=== PATIENT | female | born 1965 | race Caucasian/White ===

== ENCOUNTER 2016-04-01 20:49 | Inpatient (IN) | payer OTHER ==
[~2016-04-01] VITALS: Ht 157.5 cm; Wt 45.4 kg
[~2016-04-01 20:49] MED LIST: AMOXIL500 MG PO; ATROVENT 0.02%2.5 ML INH; ATROVENT 0.02%2.5 ML NEB; AUGMENTIN 875875 MG PO; CYCLOBENZAPRINE5 MG PO; CYMBALTA 20 MG20 MG PO; DILAUDID2 M1 PO; DULOXETINE HCL20 MG PO; HYDROXYZINE HCL25 M2 PO; HYDROXYZINE HCL25 MG PO; MASON NATURAL2000 IU PO; MIRTAZAPINE45 M1 PO; MIRTAZAPINE45 MG PO; MOBIC 15MG15 MG PO; NICODERM C21 MG/24 H TOP; NICOTINE T21 MG/24 H TOP; OXYCODONE5 MG PO; PERCOCET 325 MG1 TA2 PO; PERCOCET 5-3251 EACH PO; PREDNICOT10 MG PO; PREDNISONE 10MG10 MG PO; SPIRIVA 18 MCG18 MCG INH; SPIRIVA18 MCG INH; SYMBICORT 160/41 PUF INH; SYMBICORT 16010.2 GM INH; SYMBICORT 80/4.1 PUF INH; TOPAMAX 100MG100 M1 PO; TOPIRAMATE200 M2 PO; TRAMADOL50 MG PO; TRAZODONE HCL100 M1 PO; TRAZODONE100 MG PO; VENTOLIN H0.09 MG/Ac INH; VENTOLIN HFA18 GM INH; VICODIN5-300 PO; VITAMIN B-121000 MC3 PO; ZITHROMAX Z-PA250 M1 PO
--- NOTE | 2016-04-01 21:02 | ED DYSPNEA/ASTHMA COMPLAINT ---
History of Present Illness General Chief Complaint: Dyspnea (COPD, CHF, Other) Stated Complaint: DIFFICULTY BREATHING Source: patient, family, old records Exam Limitations: no limitations Vital Signs & Intake/Output Vital Signs & Intake/Output Vital Signs Date Time Temp Pulse Resp B/P Pulse O2 O2 Flow FiO2 Ox Delivery Rate 04/014 97.9 103 39 163/85 90 BIPAP 40% 04/010 24 96 BIPAP 35% 04/011 97.7 88 24 141/79 94 Venti Mask 50% 04/01 2100 100 Non 100% ReBreather 04/01 2054 97.7 93 22 158/86 100 Non ReBreather Allergies Coded Allergies: NO KNOWN ALLERGIES (10/11/14) Reconcile Medications Albuterol Sulfate (Ventolin Hfa) 18 GM HFA.AER.AD 2 PUF INH Q4H PRN COPD ( Reported) Budesonide/Formoterol Fumarate (Symbicort 160-4.5 Mcg Inhaler) 10.2 GM HFA.AER.AD 2 PUF INH BID COPD (Reported) Mirtazapine 45 MG TABLET 1 TAB PO QHS MENTAL HEALTH (Reported) Oxycodone HCl (Oxycontin) 15 MG TAB.ER.12H 1 TAB PO PRN CHRONIC PAIN ( Reported) Oxycodone HCl/Acetaminophen (Percocet 5-325 MG Tablet) 1 EACH TABLET 1 TAB PO Q6HR PRN PAIN Tiotropium [place] (Spiriva) 18 MCG CAP.W.DEV 1 CAP INH DAILY COPD (Reported) Trazodone HCl 100 MG TABLET 1 TAB PO QHS SLEEP (Reported) Triage Note: PT BIBA FROM HOME C/O SOB/AMS. PER MEDIC PT WAS AT HOME SINCE THIS MORNING? PT HAS HAD AMS, PT HAS HX OF N STAGE COPD AND LUNG CA THAT IS NOT BEING TREATED BECAUSE OF COPD. PER MEDIC PT HAS PINPOINT PUPILS AND IS ON OPIOIDS FOR PAIN, RHONCHI BILATERALLY. AT HOME PT WAS ON 8L NC 02 SAT 88%, PT SWITCHED OVER TO NONREBREATHER AND 02 SAT 98%. ON ARRIVAL PT A&O X3 STATING SHE WOULD LIKE A OXYCODONE WHICH SHE LAST TOOK AT 1600. IV ACCESS ESTABLISHED PER THIS RN LAC #[id number]. LABS DRAWN. AWAITING PROVIDER EVAL. Triage Nurses Notes Reviewed? yes Onset: Gradual Duration: day(s): (3) Timing: recent history Severity: severe Activities at Onset: none Associated Symptoms: cough, DYSPNEA HPI: This is a 50-year-old female with end-stage COPD and lung cancer who presents to the ER with family for chief complaint of respiratory distress. Last 3 days. Upon arrival EMS found her saturating in the 80s and her of nasal cannula flow. Patient tried using a nebulizer treatment today without relief. Son reports green sputum. Quite to the family nor she has been lethargic with pinpoint pupils with bilateral rhonchi. She is on pain management and currently not in any treatment for her cancer secondary to her degree of underlying health. 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 Denies any recent sick contacts. Patient is up-to -date with the flu vaccine. Last hospitalization was in summer of 2015. Past History Travel History Traveled to [place] past 21 day No Medical History Any Pertinent Medical History? 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 SISTER (breast cancer, diabetes, cad). BROTHER (diabetes, cad). Hx Contributory? No Review of Systems Review of Systems Constitutional: Denies: chills, fever. EENTM: Reports: no symptoms. Respiratory: Reports: cough, short of breath, sputum production. Cardiovascular: Denies: chest pain. GI: Denies: abdominal pain. Genitourinary: Reports: no symptoms. Musculoskeletal: Reports: no symptoms. Skin: Reports: no symptoms. Neurological/Psychological: Reports: no symptoms. Hematologic/Endocrine: Denies: bruising, bleeding, polyuria, polydipsia. Immunologic/Allergic: Denies: splenectomy. All Other Systems: Reviewed and Negative Physical Exam Physical Exam General Appearance: alert, awake, anxious, moderate distress, thin Head: atraumatic, normal appearance Eyes: Bilateral: normal appearance, PERRL, EOMI. Ears, Nose, Throat: normal pharynx, hearing grossly normal Neck: normal inspection, supple, full range of motion Respiratory: decreased breath sounds, accessory muscle use, crackles Cardiovascular: regular rate/rhythm Peripheral Pulses: 2+ radial (R), 2+ radial (L) Gastrointestinal: normal bowel sounds, soft, non-tender Extremities: normal inspection, normal capillary refill, normal range of motion, no edema Neurologic/Psych: no motor/sensory deficits, awake, alert, oriented x 3 Skin: intact, normal color, warm/dry Core Measures ACS in differential dx? 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 04/01 2111 Active EKG 04/01 2111 Active RAPID VIRAL INFLUENZA A 04/01 2109 Complete RT ED ORDERS 04/01 2108 Complete ARTERIAL BLOOD GAS (GEN) 04/01 2108 Complete BLOOD CULTURE 04/01 2108 Active PARTIAL THROMBOPLASTIN TIME 04/01 2108 Complete PROTHROMBIN TIME 04/01 2108 Complete LACTIC ACID 04/01 2108 Complete COMPREHENSIVE METABOLIC PANEL 04/01 2108 Complete CBC WITHOUT DIFFERENTIAL 04/01 2108 Complete Intake & Output 04/01 2052 Active BIPAP 04/01 UNK Complete Laboratory Tests 04/01/16 2310: pH 7.27 *L, pCO2 92 *H, pO2 51 L, HCO3 42 H, ABG O2 Sat (Measured) 88.0 L, P- 50 (Temp Corrected) Y, Carboxyhemoglobin 1.0 L, O2 Concentration % 35, Temperature 97.2, Respiration Rate 24, O2 Delivery Method BIPAP, Vent Mode ST, Expiratory Pressure 6, Inspiratory Pressure 18, Phlebotomy Draw Site RIGHT RADIAL 04/01/162124: pH 7.13 *L, pCO2 151 *H, pO2 173 H, HCO3 49 H, ABG O2 Sat (Measured) 98.0, Carboxyhemoglobin 1.1 L, O2 Concentration % 50, O2 Delivery Method V/M, Phlebotomy Draw Site RIGHT RADIAL 04/01/162105: Anion Gap 7, Estimated GFR > 60, BUN/Creatinine Ratio 28.0 H, Glucose 105 H, Lactic Acid 0.6 L, Calcium 8.9, Total Bilirubin 0.4, AST 33, ALT 51, Alkaline Phosphatase 79, Total Protein 6.8, Albumin 4.0, Globulin 2.8, Albumin/Globulin Ratio 1.4, PT 9.5, INR 0.90, APTT 32, CBC w Diff NO MAN DIFF REQ, RBC 4.23, MCV 104.0 H, MCH 32.6 H, RDW 14.5, MPV 8.4, Gran % 95.5 H, Lymphocytes % 2.7 L, Monocytes % 1.7, Eosinophils % 0.1, Basophils % 0 L, Absolute Granulocytes 10.9 H, Absolute Lymphocytes 0.3 L, Absolute Monocytes 0.2, Absolute Eosinophils 0, Absolute Basophils 0, PUBS MCHC 31.3 L Microbiology 04/01 2125 LOWER RESP: Respiratory Culture - ORD 04/01 2125 LOWER RESP: Gram Stain - ORD 04/01 2120 BLOOD: Blood Culture - RECD 04/01 2119 NASOPHARYN: Influenza Virus A & B Rapid Smear - COMP 04/01 2104 BLOOD: Blood Culture - RECD 9:45 PM BIPAP, CONTINUOUS NEB ORDERED. (MARCUS GOLDEN,ADRIAN) Diagnostic Imaging: Viewed by Me: Radiology Read. Discussed w/RAD: Radiology Read. CXR Impression: PATIENT: MALIHA DUARTE PRESENT AGE: 50 PATIENT ACCOUNT NO: [id number] : 64 LOCATION: [facility] ORDERING PHYSICIAN: ADRIAN VELAZQUEZ MD SERVICE DATE: 04/01/16 EXAM TYPE: RAD - XRY-PORTABLE CHEST XRAY EXAMINATION: XR PORTABLE CHEST CLINICAL INFORMATION: Dyspnea. Cough. COMPARISON: Chest radiography 07/29/2015. TECHNIQUE: Portable AP view of the chest was obtained. FINDINGS: The lungs are mildly hyperexpanded. Bronchovascular markings are unchanged. Linear opacification in the right midlung. Subcentimeter calcified granuloma in the left upper lung. Relative oligemia in the right upper lung consistent with emphysema. No new lobar consolidation. No pneumothorax or pleural effusion. No pulmonary edema. No mediastinal widening. No acute osseous abnormalities. IMPRESSION: No significant interval change compared to prior radiography. No evidence of lobar pneumonia. Chronic bronchovascular prominence with emphysema. A superimposed small airways inflammatory process is not excluded. DICTATED BY: ARLENE MACIEL MD DATE/TIME DICTATED:04/01/162153 CONTINUOUS PROCESS ROTARY DRUM TANNER:ROBERTH DATE/TIME TRANSCRIBED:2153 CONFIDENTIAL, DO NOT COPY WITHOUT APPROPRIATE AUTHORIZATION. < Electronically signed in Other Vendor System> SIGNED BY: ARLENE MACIEL MD 04/01/162199 Initial ED EKG: NSR Rhythm Strip: normal sinus rhythm Departure Departure Time of Disposition: 2245 Disposition: STILL A PATIENT Condition: Stable Clinical Impression Primary Impression: Hypercapnic respiratory failure Referrals: CHRISTIE DIAZ MD (PCP/Family) Departure Forms: Customer Survey General Discharge Information Admission Note Spoke With: FLO SERRANO MD Documentation of Exam: Documentation of any treatments & extenuating circumstances including Concerns Regarding Discharge (functional status, medication knowledge or non-compliance, living conditions, etc.) that warrant an admission rather than observation: [ BIPAP, IV STEROIDS, IV ABX TRC/NEBS, MONITOR I/O, F/U CULTURES, PULMONARY CONSULTATION, CONSIDER HOSPICE IF PATIENT DOES NOT IMPROVE, PATIENT IS DNR/DNI] Critical Care Note Critical Care Note Critical Care Time: 30-74 min
--- NOTE | 2016-04-01 21:07 | NUR ---
DR VELAZQUEZ IN FOR DOMOAL
--- NOTE | 2016-04-01 21:15 | NUR ---
O2 SAT 100% ON NRB. PLACED ON 50% VM PER DR VELAZQUEZ. WILL CONTINUE TO MONITOR
--- NOTE | 2016-04-01 21:25 | NUR ---
O2 SAT 98-99% ON 50% VM. RT AT BEDSIDE FOR DUO NEB.
--- NOTE | 2016-04-01 21:27 | NUR ---
THIS RN COLLECTED BLOOD CULTURES, LABS SENT (SST, LAV, BLUE, YANCEY)
--- NOTE | 2016-04-01 21:30 | NUR ---
PORT CXR DONE. FAMILY BACK AT BEDSIDE
--- NOTE | 2016-04-01 21:30 | NUR ---
PT MEDICATED WITH 125MG SOLU MEDROL AND 1G ROCEPHIN PER EMAR.
--- NOTE | 2016-04-01 21:41 | NUR ---
PT VERY ANXIOUS. DR VELAZQUEZ AT BEDSIDE TO EVAL PT. MOVING BETTER AIR AFTER DUO NEB. O2 SAT 99-100% PT MEDICATED WITH 0.5 MG ATIVAN IV ORDERED. PLACED ON 3L NC PER RT AMANDA. WILL CONTINUE TO MONITOR
--- NOTE | 2016-04-01 21:46 | NUR ---
PT MEDICATED WITH 500 MG ZITHRO PER EMAR IV.
--- NOTE | 2016-04-01 21:47 | NUR ---
O2 SAT 91-92% ON 3L
[2016-04-01 21:49] LABS: ABSOLUTE BASOPHIL COUNT 0 /CUMM (0.0-0.2); ABSOLUTE EOSINOPHIL COUNT 0 /CUMM (0.0-0.7); ABSOLUTE GRANULOCYTE CT 10.9 /CUMM (1.4-6.5); ABSOLUTE LYMPH COUNT 0.3 /CUMM (1.2-3.4); ABSOLUTE MONOCYTE COUNT 0.2 /CUMM (0.10-0.60); BASOPHIL % 0 % (0.0-2.0); EOSINOPHIL % 0.1 % (0-5); MEAN CORPUSCULAR HGB 32.6 PG (27.0-31.0); MEAN CORPUSCULAR HGB CONC 31.3 G/DL (33.0-37.0); MEAN PLATELET VOLUME 8.4 FL (7.4-10.4); PLATELET COUNT 337 /CUMM (130-400); RBC DISTRIBUTION WIDTH 14.5 % (11.5-14.5); RED BLOOD CELL CT 4.23 /CUMM (4.20-5.40)
[2016-04-01 21:51] LABS: GRANULOCYTE % 95.5 % (42.2-75.2)
--- NOTE | 2016-04-01 21:52 | NUR ---
PT HAS WET PRODUCTIVE COUGH WITH GREEN SPUTUM PER PT.
--- NOTE | 2016-04-01 21:52 | NUR ---
PT VERY ANXIOUS O2 SAT MID 80'S PLACED BACK ON VENTI MASK 50% 02 SAT 95% PT CONTINOUSLY SAYING "I CANT BREATHE". PT AWARE SPUTUM SAMPLE IS NEEDED, SPECIMEN CUP PROVIDED. RT AT BEDSIDE, SETTING UP BIPAP.
[2016-04-01 21:58] LABS: PT 9.5 SEC (9.4-12.5); PTT 32 SEC (25-37)
--- NOTE | 2016-04-01 22:00 | RADIOLOGY REPORT ---
EXAMINATION: XR PORTABLE CHEST CLINICAL INFORMATION: Dyspnea. Cough. COMPARISON: Chest radiography 07/29/2015. TECHNIQUE: Portable AP view of the chest was obtained. FINDINGS: The lungs are mildly hyperexpanded. Bronchovascular markings are unchanged. Linear opacification in the right midlung. Subcentimeter calcified granuloma in the left upper lung. Relative oligemia in the right upper lung consistent with emphysema. No new lobar consolidation. No pneumothorax or pleural effusion. No pulmonary edema. No mediastinal widening. No acute osseous abnormalities. IMPRESSION: No significant interval change compared to prior radiography. No evidence of lobar pneumonia. Chronic bronchovascular prominence with emphysema. A superimposed small airways inflammatory process is not excluded.
--- NOTE | 2016-04-01 22:03 | NUR ---
BIBPAP SETTING 18/6 RR 22 AND 35%. PT MEDICATED WITH 0.5MG ATIVAN IV PER EMAR FOR ANXIETY. PT STATES " I NEED TO TAKE HIS MASK OFF I FEEL PANIC ATTACK COMING"
[2016-04-01 22:04] LABS: WHITE BLOOD CELL COUNT 11.4 /CUMM (4.8-10.8)
--- NOTE | 2016-04-01 22:08 | NUR ---
RR RATE ON BIPAP CHANGED FROM 22 TO 24.
--- NOTE | 2016-04-01 22:14 | NUR ---
FAMILY AT BEDSIDE, PT MORE CALM AND RELAXED, SLEEPING ON AND OFF, EASILY AROUSABLE WITH VERBAL STIMULI.
--- NOTE | 2016-04-01 22:47 | History & Physical ---
General Information and HPI Source of Information: patient, old records Exam Limitations: no limitations Allergies/Medications Allergies: Coded Allergies: NO KNOWN ALLERGIES (10/11/14) Home Med list Albuterol Sulfate (Ventolin Hfa) 18 GM HFA.AER.AD 2 PUF INH Q4H PRN COPD ( Reported) Budesonide/Formoterol Fumarate (Symbicort 160-4.5 Mcg Inhaler) 10.2 GM HFA.AER.AD 2 PUF INH BID COPD (Reported) Mirtazapine 45 MG TABLET 1 TAB PO QHS MENTAL HEALTH (Reported) Oxycodone HCl (Oxycontin) 15 MG TAB.ER.12H 1 TAB PO PRN CHRONIC PAIN ( Reported) Oxycodone HCl/Acetaminophen (Percocet 5-325 MG Tablet) 1 EACH TABLET 1 TAB PO Q6HR PRN PAIN Tiotropium [place] (Spiriva) 18 MCG CAP.W.DEV 1 CAP INH DAILY COPD (Reported) Trazodone HCl 100 MG TABLET 1 TAB PO QHS SLEEP (Reported) Past History Travel History Traveled to [place] past 21 day No Medical History Neurological: NONE EENT: NONE Cardiovascular: NONE Respiratory: COPD, pneumonia, 2LNC DEPENDENT RESPIRATORY FAILURE LUNG CA Gastrointestinal: NONE Hepatic: NONE Renal: NONE Musculoskeletal: NONE Psychiatric: anxiety, depression Endocrine: NONE Blood Disorders: anemia Cancer(s): lung cancer 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 SISTER (breast cancer, diabetes, cad). BROTHER (diabetes, cad). Psychosocial History Services at Home: None ETOH Use: denies use Illicit Drug Use: denies illicit drug use Core Measures/Miscellaneous Severe Sepsis Severe Sepsis Present: No Septic Shock Septic Shock Present: No Severe Sepsis Present: No Septic Shock Septic Shock Present: No
[2016-04-01] MEDS ORDERED: OXYCONTIN15 M1 PO (22:48)
--- NOTE | 2016-04-01 22:59 | NUR ---
PT GOING TO ROOM 219-2.
--- NOTE | 2016-04-01 23:11 | NUR ---
HOUSE STAFF IN
--- NOTE | 2016-04-01 23:11 | NUR ---
PT MEDICATED WITH 0.4MG NARCAN HUNG IN A 50ML NS BAG INFUSING AT 75ML/HR, PT IS MORE ALERT AND ORIENTED. PT STATING " I WANT TO TAKE THIS MASK OFF" DR SERRANO IN RM WITH THIS RN AND STATED THAT THE 50ML NS BAG IS 25ML INFUSED AND TO STOP THE INFUSION DUE TO INCREASE IN PT ALERTNESS.
--- NOTE | 2016-04-01 23:15 | NUR ---
BIPAP 28/06 24 RR 40%
--- NOTE | 2016-04-01 23:45 | NUR ---
REPORT GIVEN TO ALISTAIR PARTIDA.
[2016-04-01] MEDS ORDERED: PERCOCET 7.5-31 EACH PO (23:49)
[2016-04-01] MEDS ORDERED: ALENDRONATE SOD35 M2 PO (23:50)
[2016-04-01] MEDS ORDERED: DULOXETINE HCL20 MG PO (23:50)
[2016-04-01] MEDS ORDERED: PREDNISONE10 M2 PO (23:52)
--- NOTE | 2016-04-01 23:52 | Admission Certification ---
Admission Certification Certification Statement - As attending physician, I certify that at the time of - admission, based on clinical presentation, severity of - symptoms, need for further diagnostic testing and - therapeutic interventions, and risk of adverse outcomes - without in-hospital treatment, in my clinical assessment, - this patient requires an acute hospital stay for a minimum - of two nights or longer. I have also considered psychsocial - factors such as support system, advanced age, financial - issues, cognitive issues, and failed out-patient treatments, - past re-admission history, safety of patient, and lack of - compliance as applicable. Specific rationale supporting this admission is: Acute on chronic hypoxic and hypercarbic respiratory failure.
--- NOTE | 2016-04-02 00:07 | NUR ---
PROVENTIL DUE AT 2144 GIVEN BY RT FRAN, RT FRAN DID NOT SIGN OFF ON MEDICATION
--- NOTE | 2016-04-02 00:25 | History & Physical ---
BISMARK MYLES 04/02/16 0002: General Information and HPI Source of Information: patient, family, old records Exam Limitations: no limitations History of Present Illness: She is 50-year-old woman with past medical history of chronic respiratory failure, COPD on 2 L of oxygen at home, anxiety/depression, lung cancer and osteopenia BIBA from home with complaint of altered mental status and shortness of breath. Per EMS patient had pinpoint pupils. Patient goes to pain clinic and on opiates, oxycodone and OxyContin. Per family for last 3 days she has worsening of shortness of breath. She increased her oxygen requirement from 2 L to 6 L and then 8 L. Upon arrival she was saturating in the 80s on 8 L. She was also taking [id number] " Cold medications " these days because of cold -like symptoms and sinus congestion. She also reports greenish sputum. Patient tried using nebulizer treatment but did not get any relief. Patient denies any fever, chills, chest pain or discomfort. Patient is still current every day smoker. 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 Per family patient was recently started taking steroids 10 mg 3 times a day. Allergies/Medications Allergies: Coded Allergies: NO KNOWN ALLERGIES (10/11/14) Home Med list Albuterol Sulfate (Ventolin Hfa) 18 GM HFA.AER.AD 2 PUF INH Q4H PRN COPD ( Reported) Alendronate Sodium 35 MG TABLET 1 TAB PO QW OSTEOPOROSIS (Reported) Budesonide/Formoterol Fumarate (Symbicort 160-4.5 Mcg Inhaler) 10.2 GM HFA.AER.AD 2 PUF INH BID COPD (Reported) Duloxetine HCl 20 MG CAPSULE.DR 1 CAP PO DAILY DEPRESSION (Reported) Mirtazapine 45 MG TABLET 1 TAB PO QHS MENTAL HEALTH (Reported) Oxycodone HCl (Oxycontin) 15 MG TAB.ER.12H 1 TAB PO PRN CHRONIC PAIN ( Reported) Oxycodone HCl/Acetaminophen (Percocet 7.5-325 MG Tablet) 7.5 MG-325 MG TABLET 1 TAB PO TID CHRONIC PAIN (Reported) Prednisone 10 MG TABLET 1 TAB PO TID COPD (Reported) PER PATIENT Tiotropium [place] (Spiriva) 18 MCG CAP.W.DEV 1 CAP INH DAILY COPD (Reported) Trazodone HCl 100 MG TABLET 1 TAB PO QHS SLEEP (Reported) Compliance With Home Meds: GOOD Past History Travel History Traveled to [place] past 21 day No Medical History Neurological: NONE EENT: NONE Cardiovascular: NONE Respiratory: COPD, pneumonia, 2LNC DEPENDENT RESPIRATORY FAILURE LUNG CA Gastrointestinal: NONE Hepatic: NONE Renal: NONE Musculoskeletal: NONE Psychiatric: anxiety, depression Endocrine: NONE Blood Disorders: anemia Cancer(s): lung cancer DIRECTOR 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 SISTER (breast cancer, diabetes, cad). BROTHER (diabetes, cad). Psychosocial History Services at Home: None Smoking Status: Current Everyday Smoker ETOH Use: denies use Illicit Drug Use: denies illicit drug use Review of Systems Review of Systems Constitutional: Reports: see HPI. Exam & Diagnostic Data Last 24 Hrs of Vital Signs/I&O Vital Signs Date Time Temp Pulse Resp B/P Pulse O2 O2 Flow FiO2 Ox Delivery Rate 04/01 2313 97.9 103 39 163/85 90 BIPAP 40% 04/01 2210 24 96 BIPAP 35% 04/011 97.7 88 24 141/79 94 Venti Mask 50% 04/01 2100 100 Non 100% ReBreather 04/01 2054 97.7 93 22 158/86 100 Non ReBreather Intake & Output 04/02 0800 04/02 0000 04/01 1600 Intake Total Output Total Balance Patient 110 lb Weight Physical Exam General Appearance Alert, Oriented X3, Moderate Distress, on BiPAP Skin No Rashes HEENT dry mucous membranes Neck Supple Cardiovascular tachycardia Lungs rhonchi and wheezes bilaterally Abdomen Soft, No Tenderness Extremities No Edema Last 24 Hrs of Labs/Benito: Laboratory Tests 04/01/162309: pH 7.27 *L, pCO2 92 *H, pO2 51 L, HCO3 42 H, ABG O2 Sat (Measured) 88.0 L, P- 50 (Temp Corrected) Y, Carboxyhemoglobin 1.0 L, O2 Concentration % 35, Temperature 97.2, Respiration Rate 24, O2 Delivery Method BIPAP, Vent Mode ST, Expiratory Pressure 6, Inspiratory Pressure 18, Phlebotomy Draw Site RIGHT RADIAL 04/01/162124: pH 7.13 *L, pCO2 151 *H, pO2 173 H, HCO3 49 H, ABG O2 Sat (Measured) 98.0, Carboxyhemoglobin 1.1 L, O2 Concentration % 50, O2 Delivery Method V/M, Phlebotomy Draw Site RIGHT RADIAL 04/01/162105: Anion Gap 7, Estimated GFR > 60, BUN/Creatinine Ratio 28.0 H, Glucose 105 H, Lactic Acid 0.6 L, Calcium 8.9, Total Bilirubin 0.4, AST 33, ALT 51, Alkaline Phosphatase 79, Total Protein 6.8, Albumin 4.0, Globulin 2.8, Albumin/Globulin Ratio 1.4, PT 9.5, INR 0.90, APTT 32, CBC w Diff NO MAN DIFF REQ, RBC 4.23, MCV 104.0 H, MCH 32.6 H, RDW 14.5, MPV 8.4, Gran % 95.5 H, Lymphocytes % 2.7 L, Monocytes % 1.7, Eosinophils % 0.1, Basophils % 0 L, Absolute Granulocytes 10.9 H, Absolute Lymphocytes 0.3 L, Absolute Monocytes 0.2, Absolute Eosinophils 0, Absolute Basophils 0, PUBS MCHC 31.3 L Microbiology 04/01 2125 LOWER RESP: Respiratory Culture - ORD 04/01 2125 LOWER RESP: Gram Stain - ORD 04/01 2120 BLOOD: Blood Culture - RECD 04/01 2119 NASOPHARYN: Influenza Virus A & B Rapid Smear - COMP 04/01 2104 BLOOD: Blood Culture - RECD Diagnostic Data EKG Results Normal sinus rhythm with no acute ST-T wave changes CXR Results Chronic bronchovascular prominence with emphysema Assessment/Plan Assessment: She is 50-year-old woman with past medical history of chronic respiratory failure, COPD on 2 L of oxygen at home, anxiety/depression, lung cancer and osteopenia BIBA from home with complaint of altered mental status and shortness of breath. ED course: Upon arrival her temperature was 97.7 pulse 93, respiratory rate 22, blood pressure 158/86 and oxygen saturation 88% on 8 L of oxygen. She was switched over to 100% nonrebreather and oxygen saturation 98%. In ER she was given nebulization treatment, IV steroids, IV ceftriaxone and azithromycin, and IV Ativan 0.5 mg 2. Patient was initially alert awake and oriented 3 but later on after getting Ativan she became more altered and she was given Narcan 0.4 mg (half bag) and she was more awake and alert. Problem list 1. Acute on chronic hypercapnic respiratory failure most likely secondary to COPD exacerbation vs respiratory depression by opiates. Per family patient was recently taking [id number]-growubw cold medications and decongestants because of cold-like symptoms and sinus congestion. ABGs on admission were pH 7.13, PCO2 151, bicarbonate 49. She was put on BiPAP ( I/E 17/5, RR 24, 40%). Repeat ABGs are pH 7.27, PCO2 92, bicarbonate 42. 2. Leukocytosis. WBC count is 11.4. Patient was also on steroids at home 3. History of lung cancer 4. History of chronic pain 5. History of depression/anxiety Plan We will admit patient on general medicine floor. Monitor vitals closely. ABGs improving. Continue BiPAP at same settings. We will repeat ABGs in a.m. Consult in a.m. Continue TRC nebs. Continue IV ceftriaxone, azithromycin and Solu-Medrol. Sputum culture. Continue all her home medications including pain medications starting from tomorrow. Subcutaneous Lovenox for DVT prophylaxis. Regular diet. Pain management pathway. DNR/DNI As Ranked By This Provider Problem List: 1. Hypercapnic respiratory failure Core Measures/Miscellaneous Acute Coronary Syndrome ACS Diagnosis: No Cerebrovascular Accident CVA/TIA Diagnosis: No Congestive Heart Failure CHF Diagnosis: No Venous Thromboembolism VTE Risk Factors: Acute medical illness, Age > 40 VTE Prophylaxis Ordered Inpt: Pharm- Lovenox No Mech VTE prophylaxis d/t: No contraindications No VTE Pharm Prophylaxis d/t: No contraindications VTE Diagnosis: No VTE Type: NONE VTE Confirmed by (Test): NONE Severe Sepsis Severe Sepsis Present: No Septic Shock Septic Shock Present: No Miscellaneous Documentation Attending Case Discussed With: FLO SERRANO MD Primary Care Physician: CHRISTIE DIAZ MD Patient sees these Specialists Dr. 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 Family reports, patient has been having sinus congestion/URI for over a month being treated with OTC mucinex, nyquil and dayquil. She was prescribed Zpak and slow prednisone taper by Dr. Bell in Feb 2016. Over past 3 days, O2 requirement increased from 5 to 8L, with cough productive of green phlegm. No relief with nebs. She was last admitted to [facility] Dec 2014 for COPD exacerbation. Per EMS records, patient had pinpoint pupuls, O2 sats were 88% on 8L --> 98% on NRB. She received two dose of ativan for her anxiety, and small dose of Narcan infusion with improvement in her alertness. Vitals: afebrile, HR 90-100's, BP 134/72, sats 92% on Bipap. Exam: cachetic female in moderate respiratory distress, has dry mucous membranes, pupils were mid-dilated RTL after receiving Narcan, Chest reduced air entry with diffuse espiratory wheezes, Heart S1S2 regular, Abd soft, NT, Extremities no edema. Labs: WBC 11.4, macrocytosis, bicarb 47, glucose 105, lactic acid 0.6. AB.13 /151/173/49 on VM. CXR: chronic bronchovascular prominence with emphysema, no lobar pneumonia. EKG: SR, no acute changes. Echo (2014): EF 55-60%. 1. Acute on chronic hypoxic and hypercarbic respiratory failure (severe respiratory acidosis) 2/2 COPD exacerbation and opiate use for chronic pain. No evidence of pneumonia. PE cannot be ruled out given underlying cancer. GM admit, TRC nebs, sputum culture, continue IV steroids and IV ceftriaxone and azithro. Repeat ABG shows improvement in acidosis --> 7.27/92/51/42 on Bipap. Continue Bipap overnight. NPO while on Bipap, gentle hydration. Pulm consult in AM. Avoid sedative med opiates to be restarted only in AM. I had a detailed discussion with family about her poor prognosis, her code status is DNR/I as per patient's wishes. This was confirmed by Dr. Bell (to Dr. Nath in ER) as per his discussion with the patient during outpatient visit. 2. Chronic pain on opiates by pain management clinic. Restart pain meds in AM with holding parameters for lethargy or altered mentation. 3. Anxiety/panic attack. Resume home meds from AM trazodone, duloxetine and mirtazapine. DVT ppx Lovenox. DNR/I.
[2016-04-02 01:18] VITALS: BP 134/72
--- NOTE | 2016-04-02 03:43 | NUR ---
PT ARRIVED TO FLOOR 0020 ACCOMPANIED BY HER THREE CHILDREN. PT A&0 X3, ON VENTI MASK 40%, POSITIVE PULSES, LUNG SOUNDS WHEEZING AND RHONCHEROUS, SKIN CDI WITH NO EDEMA, PT ANXIOUS, STATING SHE CANNOT BREATHE AND PULLING AT VENIT MASK. THIS RN SPOKE WITH PT REGARDING NEED TO KEEP MASK ON. PT RECEPTIVE AND COOPERATIVE. FLUIDS SET- D5 1/2 NS @ 75 RUNNING. FAMILY IN ROOM, SON TO STAY THE NIGHT. WILL CONTINUALLY MONITOR.
--- NOTE | 2016-04-02 08:13 | PN- Housestaff ---
Subjective Follow-up For: - Acute on chronic respiratory failure Review of Systems Constitutional: Reports: see HPI. Objective Last 24 Hrs of Vital Signs/I&O Vital Signs Date Time Temp Pulse Resp B/P Pulse O2 O2 Flow FiO2 Ox Delivery Rate 04/02 0724 97 98 04/02 0520 95 98 04/02 0318 95 96 04/02 0118 97.3 97 36 134/72 94 04/02 0031 Venti Mask 40% 04/02 0031 99 93 04/02 0029 92 Venti Mask 45% 04/01 2314 97.9 103 39 163/85 90 BIPAP 40% 04/010 24 96 BIPAP 35% 04/01 215 97.7 88 24 141/79 94 Venti Mask 50% 04/01 2100 100 Non 100% ReBreather 04/01 2054 97.7 93 22 158/86 100 Non ReBreather Intake & Output 04/02 1600 04/02 0800 04/02 0000 Intake Total 605 Output Total 400 Balance 205 Intake, IV 465 Intake, Oral 140 Output, Urine 400 Patient 110 lb 110 lb Weight Physical Exam General Appearance: No Acute Distress Current Medications: Current Medications Sig/Osmar Start time Last Medication Dose Route Stop Time Status Admin Acetaminophen 650 MG ONCE ONE 04/02 0600 DC 04/02 PO 04/02 0601 0610 Albuterol Sulfate 3 ML EVERY 4 HRS/AWAKE 04/02 0800 AC 04/02 INH 0731 Albuterol Sulfate 3 ML Q4H PRN 04/01 2345 AC 04/02 INH 0009 Albuterol Sulfate 18 ML ONCE ONE 04/015 DC 04/02 INH 04/01 2145 0008 Albuterol Sulfate 3 ML ONCE ONE 04/01 211 DC 04/01 INH 04/01 2115 213 Azithromycin 500 MG DAILY 04/02 1000 AC Dextrose/Water 250 ML IV Azithromycin 500 MG ONCE ONE 04/01 2114 DC 04/01 Dextrose/Water 250 ML IV 04/01 221 214 Budesonide/ 2 PUF BID 04/02 1000 AC Formoterol Fumarate INH Ceftriaxone Sodium 1,000 MG DAILY 04/02 1000 AC IV Ceftriaxone Sodium 0 .STK-MED ONE 04/01 2132 DC .ROUTE Ceftriaxone Sodium 1,000 MG ONCE ONE 04/01 2114 DC 04/01 IV 04/01 2115 214 Dextrose/Sodium 1,000 ML .[id number] 04/01 2345 AC 04/02 Chloride IV 04/02 1304 0123 Duloxetine HCl 20 MG DAILY 04/02 1000 AC PO Enoxaparin Sodium 40 MG DAILY 04/02 1000 AC SC Ipratropium [place] 2.5 ML ONCE ONE 04/01 2114 DC 04/01 INH 04/01 Lorazepam 0.5 MG ONCE ONE 04/01 2214 DC 04/01 IV 04/01 Lorazepam 0 .STK-MED ONE 04/01 2202 DC .ROUTE Lorazepam 0.5 MG ONCE ONE 04/01 2144 DC 04/01 IV 04/01 Lorazepam 0 .STK-MED ONE 04/01 2136 DC .ROUTE Methylprednisolone 40 MG Q8 04/02 0600 AC 04/02 IV 0553 Methylprednisolone 0 .STK-MED ONE 04/01 2135 DC .ROUTE Methylprednisolone 0 .STK-MED ONE 04/01 2131 DC .ROUTE Methylprednisolone 125 MG ONCE ONE 04/01 2114 DC 04/01 IV 04/01 Mirtazapine 45 MG AT BEDTIME 04/02 2200 AC PO Naloxone HCl 0 .STK-MED ONE 04/01 2304 DC .ROUTE Naloxone HCl 0.4 MG ONCE ONE 04/01 2300 DC 04/01 IV 04/01 2301 2311 Oxycodone HCl 15 MG Q12 04/02 1000 AC PO Oxycodone/ 1 TAB TID 04/02 1000 AC Acetaminophen PO Tiotropium [place] 1 PUF DAILY 04/02 1000 AC INH Trazodone HCl 100 MG AT BEDTIME 04/02 2200 AC PO Last 24 Hrs of Lab/Benito Results Last 24 Hrs of Labs/Mics: Laboratory Tests 04/02/16 0626: Sodium Pending, Potassium Pending, Chloride Pending, Carbon Dioxide Pending, Anion Gap Pending, BUN Pending, Creatinine Pending, BUN/Creatinine Ratio Pending , CBC w Diff Pending, WBC Pending, RBC Pending, Hgb Pending, Hct Pending, MCV Pending, MCH Pending, RDW Pending, Plt Count Pending, MPV Pending, PUBS MCHC Pending 04/02/16 0515: pH 7.33 L, pCO2 79 *H, pO2 98, HCO3 42 H, ABG O2 Sat (Measured) 96.0, P-50 ( Temp Corrected) Y, Carboxyhemoglobin 1.5, O2 Concentration % 40%, Temperature 97.3, Respiration Rate 24, O2 Delivery Method VISION-FFM, Vent Mode ST, Expiratory Pressure 6, Inspiratory Pressure 18, Phlebotomy Draw Site RIGHT RADIAL 04/02/16 0200: Lactic Acid 0.7 04/01/16 2310: pH 7.27 *L, pCO2 92 *H, pO2 51 L, HCO3 42 H, ABG O2 Sat (Measured) 88.0 L, P- 50 (Temp Corrected) Y, Carboxyhemoglobin 1.0 L, O2 Concentration % 35, Temperature 97.2, Respiration Rate 24, O2 Delivery Method BIPAP, Vent Mode ST, Expiratory Pressure 6, Inspiratory Pressure 18, Phlebotomy Draw Site RIGHT RADIAL 04/01/162124: pH 7.13 *L, pCO2 151 *H, pO2 173 H, HCO3 49 H, ABG O2 Sat (Measured) 98.0, Carboxyhemoglobin 1.1 L, O2 Concentration % 50, O2 Delivery Method V/M, Phlebotomy Draw Site RIGHT RADIAL 04/01/162105: Anion Gap 7, Estimated GFR > 60, BUN/Creatinine Ratio 28.0 H, Glucose 105 H, Lactic Acid 0.6 L, Calcium 8.9, Total Bilirubin 0.4, AST 33, ALT 51, Alkaline Phosphatase 79, Total Protein 6.8, Albumin 4.0, Globulin 2.8, Albumin/Globulin Ratio 1.4, PT 9.5, INR 0.90, APTT 32, CBC w Diff NO MAN DIFF REQ, RBC 4.23, MCV 104.0 H, MCH 32.6 H, RDW 14.5, MPV 8.4, Gran % 95.5 H, Lymphocytes % 2.7 L, Monocytes % 1.7, Eosinophils % 0.1, Basophils % 0 L, Absolute Granulocytes 10.9 H, Absolute Lymphocytes 0.3 L, Absolute Monocytes 0.2, Absolute Eosinophils 0, Absolute Basophils 0, PUBS MCHC 31.3 L Microbiology 04/01 2125 LOWER RESP: Respiratory Culture - ORD 04/01 2125 LOWER RESP: Gram Stain - ORD 04/01 2120 BLOOD: Blood Culture - RECD 04/01 2119 NASOPHARYN: Influenza Virus A & B Rapid Smear - COMP 04/01 2104 BLOOD: Blood Culture - RECD Assessment/Plan Consulting Request: Consulting Specialty: Pulmonary Disease
[2016-04-02 08:46] LABS: ABSOLUTE BASOPHIL COUNT 0 /CUMM (0.0-0.2); ABSOLUTE EOSINOPHIL COUNT 0 /CUMM (0.0-0.7); ABSOLUTE LYMPH COUNT 0.2 /CUMM (1.2-3.4); ABSOLUTE MONOCYTE COUNT 0.2 /CUMM (0.10-0.60); BASOPHIL % 0 % (0.0-2.0); EOSINOPHIL % 0 % (0-5); MEAN CORPUSCULAR VOLUME 102.7 FL (81.0-99.0); RED BLOOD CELL CT 3.48 /CUMM (4.20-5.40)
[2016-04-02 08:58] LABS: ABSOLUTE GRANULOCYTE CT 12.1 /CUMM (1.4-6.5); GRANULOCYTE % 96.9 % (42.2-75.2); MEAN CORPUSCULAR HGB 32.9 PG (27.0-31.0); MEAN PLATELET VOLUME 8.4 FL (7.4-10.4); PLATELET COUNT 303 /CUMM (130-400); RBC DISTRIBUTION WIDTH 14.1 % (11.5-14.5); WHITE BLOOD CELL COUNT 12.5 /CUMM (4.8-10.8)
[2016-04-02 09:01] LABS: HEMATOCRIT 35.8 % (37-47)
[2016-04-02 09:15] VITALS: BP 134/60
--- NOTE | 2016-04-02 09:58 | Cons- Pulmonary ---
General Information and HPI Consulting Request Date of Consult: 04/02/16 Requested By: ana Reason for Consult: Acute on chronic hypercapnic Respiratory failure History of Present Illness: Patient is 50-year-old with severe advanced COPD actively smoking history of lung cancer admitted with acute on chronic hypercapnic respiratory failure in the setting of opiate usage. She had increasing respiratory symptoms was hypoxic and found to be profoundly hypercarbic with acute on chronic hypercapnic respiratory acidosis. She improved with Narcan and BiPAP and is presently awake and alert. Her chest x-ray does not demonstrate pneumonia. Her bandemia may be in response to acidosis. Allergies/Medications Allergies: Coded Allergies: NO KNOWN ALLERGIES (10/11/14) Home Med List: Albuterol Sulfate (Ventolin Hfa) 18 GM HFA.AER.AD 2 PUF INH Q4H PRN COPD ( Reported) Alendronate Sodium 35 MG TABLET 1 TAB PO QW OSTEOPOROSIS (Reported) Budesonide/Formoterol Fumarate (Symbicort 160-4.5 Mcg Inhaler) 10.2 GM HFA.AER.AD 2 PUF INH BID COPD (Reported) Duloxetine HCl 20 MG CAPSULE.DR 1 CAP PO DAILY DEPRESSION (Reported) Mirtazapine 45 MG TABLET 1 TAB PO QHS MENTAL HEALTH (Reported) Oxycodone HCl (Oxycontin) 15 MG TAB.ER.12H 1 TAB PO PRN CHRONIC PAIN ( Reported) Oxycodone HCl/Acetaminophen (Percocet 7.5-325 MG Tablet) 7.5 MG-325 MG TABLET 1 TAB PO TID CHRONIC PAIN (Reported) Prednisone 10 MG TABLET 1 TAB PO TID COPD (Reported) PER PATIENT Tiotropium [place] (Spiriva) 18 MCG CAP.W.DEV 1 CAP INH DAILY COPD (Reported) Trazodone HCl 100 MG TABLET 1 TAB PO QHS SLEEP (Reported) Review of Systems Review of Systems Constitutional: Denies: chills, fever. Cardiovascular: Denies: chest pain, edema. Respiratory: Reports: cough, short of breath. Denies: hemoptysis. GI: Denies: abdominal pain, diarrhea, melena. 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 SISTER (breast cancer, diabetes, cad). BROTHER (diabetes, cad). Psychosocial History Where Do You Live? Home Services at Home: None Smoking Status: Current Everyday Smoker ETOH Use: denies use Illicit Drug Use: denies illicit drug use Exam & Diagnostic Data Last 24 Hrs of Vital Signs/I&O Vital Signs Date Time Temp Pulse Resp B/P Pulse O2 O2 Flow FiO2 Ox Delivery Rate 04/02 0915 97.8 106 36 134/60 96 Nasal 5.0L Cannula 04/02 0725 BIPAP 35% 04/02 0724 97 98 04/02 0520 95 98 04/02 0318 95 96 04/02 0118 97.3 97 36 134/72 94 04/02 0031 Venti Mask 40% 04/02 0031 99 93 04/02 0029 92 Venti Mask 45% 04/01 2314 97.9 103 39 163/85 90 BIPAP 40% 04/01 2210 24 96 BIPAP 35% 04/01 2151 97.7 88 24 141/79 94 Venti Mask 50% 04/01 2100 100 Non 100% ReBreather 04/01 2055 97.7 93 22 158/86 100 Non ReBreather Intake & Output 04/02 1600 04/02 0800 04/02 0000 Intake Total 605 Output Total 400 Balance 205 Intake, IV 465 Intake, Oral 140 Output, Urine 400 Patient 110 lb 110 lb Weight She is awake alert oxygen saturation on 5 L 96% exam for chest shows diminished breath sounds are no wheezes heard cardiac exam shows regular S1 and S2 without murmurs abdominal exam is soft nontender and she has no edema Last 48 Hrs of Labs/Benito: Laboratory Tests 04/02/16 0626: Anion Gap 7, Estimated GFR > 60, BUN/Creatinine Ratio 25.0, CBC w Diff MAN DIFF ORDERED, RBC 3.48 L, MCV 102.7 H, MCH 32.9 H, RDW 14.1, MPV 8.4, Gran % 96.9 H, Lymphocytes % 1.4 L, Monocytes % 1.7, Eosinophils % 0, Basophils % 0 L, Absolute Granulocytes 12.1 H, Segmented Neutrophils 86 H, Band Neutrophils 12 H, Absolute Lymphocytes 0.2 L, Lymphocytes 1 L, Monocytes 1 L, Absolute Monocytes 0.2, Absolute Eosinophils 0, Absolute Basophils 0, Platelet Estimate ADEQUATE, Hypochromic-Microcytic 1+, Anisocytosis 1+, Macrocytic Cells 1+, PUBS MCHC 32.0 L 04/02/16 0515: pH 7.33 L, pCO2 79 *H, pO2 98, HCO3 42 H, ABG O2 Sat (Measured) 96.0, P-50 ( Temp Corrected) Y, Carboxyhemoglobin 1.5, O2 Concentration % 40%, Temperature 97.3, Respiration Rate 24, O2 Delivery Method VISION-FFM, Vent Mode ST, Expiratory Pressure 6, Inspiratory Pressure 18, Phlebotomy Draw Site RIGHT RADIAL 04/02/16 0200: Lactic Acid 0.7 04/01/16 2310: pH 7.27 *L, pCO2 92 *H, pO2 51 L, HCO3 42 H, ABG O2 Sat (Measured) 88.0 L, P- 50 (Temp Corrected) Y, Carboxyhemoglobin 1.0 L, O2 Concentration % 35, Temperature 97.2, Respiration Rate 24, O2 Delivery Method BIPAP, Vent Mode ST, Expiratory Pressure 6, Inspiratory Pressure 18, Phlebotomy Draw Site RIGHT RADIAL 04/01/165: pH 7.13 *L, pCO2 151 *H, pO2 173 H, HCO3 49 H, ABG O2 Sat (Measured) 98.0, Carboxyhemoglobin 1.1 L, O2 Concentration % 50, O2 Delivery Method V/M, Phlebotomy Draw Site RIGHT RADIAL 04/01/16 2106: Anion Gap 7, Estimated GFR > 60, BUN/Creatinine Ratio 28.0 H, Glucose 105 H, Lactic Acid 0.6 L, Calcium 8.9, Total Bilirubin 0.4, AST 33, ALT 51, Alkaline Phosphatase 79, Total Protein 6.8, Albumin 4.0, Globulin 2.8, Albumin/Globulin Ratio 1.4, PT 9.5, INR 0.90, APTT 32, CBC w Diff NO MAN DIFF REQ, RBC 4.23, MCV 104.0 H, MCH 32.6 H, RDW 14.5, MPV 8.4, Gran % 95.5 H, Lymphocytes % 2.7 L, Monocytes % 1.7, Eosinophils % 0.1, Basophils % 0 L, Absolute Granulocytes 10.9 H, Absolute Lymphocytes 0.3 L, Absolute Monocytes 0.2, Absolute Eosinophils 0, Absolute Basophils 0, PUBS MCHC 31.3 L Microbiology 04/01 2119 NASOPHARYN: Influenza Virus A & B Rapid Smear - COMP Assessment/Plan Impression/Plan: 50-year-old with advanced COPD chronically hypercarbic based on her admission bicarbonate complicated by opiate usage admitted with acute on chronic hypercapnic respiratory failure. She is improved and PCO2 is likely approaching baseline based on her pH. Recommendations: Taper FiO2 his saturations allow continue BiPAP as needed. Obtain urine tox screen from admission. Sputum C&S. Continue antibiotics and steroids Consult Acknowledgment - Thank you for your consult request.
--- NOTE | 2016-04-02 13:01 | PN- Att Addend ---
Attending Addendum Attending Brief Note 50F PMH COPD on 2L home oxygen, chronic pain, history of lung cancer, HTN admitted for altered mental status, confusion, dyspnea in the setting of acute on chronic hypercarbic/hypoxemic respiratory failure. Patient improved significantly on BiPAP and Narcan. Today she is comfortable and alert. She is A&Ox3 and conversing appropriately. She reports her dyspnea has vastly improved and she feels well. Requiring 4L NC. Mild wheezing bilaterally on exam but just received breathing treatment. AFVSS NAD, comfortable NCAT Supple RRR Mild wheezing bilaterally Soft, NTND No c/c/e Pulses intact A&Ox3 no focal deficits Current Medications Sig/Osmar Start time Last Medication Dose Route Stop Time Status Admin Acetaminophen 650 MG ONCE ONE 04/02 0600 DC 04/02 PO 04/02 0601 0610 Albuterol Sulfate 3 ML EVERY 4 HRS/AWAKE 04/02 0800 AC 04/02 INH 1115 Albuterol Sulfate 3 ML Q4H PRN 04/01 2345 AC 04/02 INH 0009 Albuterol Sulfate 18 ML ONCE ONE 04/01 2145 DC 04/02 INH 04/01 2146 0008 Albuterol Sulfate 3 ML ONCE ONE 04/01 2115 DC 04/01 INH 04/01 2116 2133 Azithromycin 500 MG DAILY 04/02 1000 AC 04/02 Dextrose/Water 250 ML IV 1012 Azithromycin 500 MG ONCE ONE 04/01 2114 DC 04/01 Dextrose/Water 250 ML IV 04/01 2214 2145 Budesonide/ 2 PUF BID 04/02 1000 AC 04/02 Formoterol Fumarate INH 1011 Ceftriaxone Sodium 1,000 MG DAILY 04/02 1000 AC 04/02 IV 1012 Ceftriaxone Sodium 0 .STK-MED ONE 04/01 2133 DC .ROUTE Ceftriaxone Sodium 1,000 MG ONCE ONE 04/01 2114 DC 04/01 IV 04/01 2116 2145 Dextrose/Sodium 1,000 ML .[id number] 04/01 2345 DC 04/02 Chloride IV 04/02 1304 0123 Docusate Sodium 100 MG DAILY NEEDED PRN 04/02 1300 AC PO Duloxetine HCl 20 MG DAILY 04/02 1000 AC 04/02 PO 1013 Enoxaparin Sodium 40 MG DAILY 04/02 1000 AC 04/02 SC 1012 Ipratropium [place] 2.5 ML ONCE ONE 04/01 2114 DC 04/01 INH 04/01 Lorazepam 0.5 MG ONCE ONE 04/01 2214 DC 04/01 IV 04/01 Lorazepam 0 .STK-MED ONE 04/01 2202 DC .ROUTE Lorazepam 0.5 MG ONCE ONE 04/01 2144 DC 04/01 IV 04/01 Lorazepam 0 .STK-MED ONE 04/01 2136 DC .ROUTE Methylprednisolone 40 MG Q8 04/02 0600 AC 04/02 IV 0553 Methylprednisolone 0 .STK-MED ONE 04/01 2135 DC .ROUTE Methylprednisolone 0 .STK-MED ONE 04/01 2131 DC .ROUTE Methylprednisolone 125 MG ONCE ONE 04/01 2114 DC 04/01 IV 04/01 Mirtazapine 45 MG AT BEDTIME 04/02 220 AC PO Naloxone HCl 0 .STK-MED ONE 04/014 DC .ROUTE Naloxone HCl 0.4 MG ONCE ONE 04/01 2300 DC 04/01 IV 04/01 2300 2311 Oxycodone HCl 15 MG Q12 04/02 1000 AC 04/02 PO 1013 Oxycodone/ 1 TAB TID 04/02 1000 AC 04/02 Acetaminophen PO 1013 Polyethylene Glycol 17 GM DAILY PRN 04/02 1300 AC PO Senna/Docusate Sodium 1 TAB BID PRN 04/02 1300 AC PO Tiotropium [place] 1 PUF DAILY 04/02 1000 AC 04/02 INH 1011 Trazodone HCl 100 MG AT BEDTIME 04/02 2200 AC PO Laboratory Tests 04/02 04/02 04/02 0626 0515 0200 Blood Gas pH (7.35 - 7.45 PH) 7.33 L pCO2 (35 - 45 TORR) 79 *H pO2 (80 - 100 TORR) 98 HCO3 (21 - 28 MEQ/L) 42 H ABG O2 Sat (Measured) (>96.0 %) 96.0 P-50 (Temp Corrected) Y Carboxyhemoglobin (1.5 - 5.0 %) 1.5 O2 Concentration % 40% Temperature (97.0 - 100.0 FARH) 97.3 Respiration Rate (BPM) 24 O2 Delivery Method VISION-FFM Vent Mode ST Expiratory Pressure (CM H2O P) 6 Inspiratory Pressure (CM H2O P) 18 Chemistry Sodium (137 - 145 mmol/L) 135 L Potassium (3.5 - 5.1 mmol/L) 4.1 Chloride (98 - 107 mmol/L) 89 L Carbon Dioxide (22 - 30 mmol/L) 40 H Anion Gap (5 - 16) 7 BUN (7 - 17 mg/dL) 10 Creatinine (0.5 - 1.0 mg/dL) 0.4 L Estimated GFR (>60 ml/min) > 60 BUN/Creatinine Ratio (7 - 25 %) 25.0 Lactic Acid (0.7 - 2.1 mmol/L) 0.7 Hematology CBC w Diff MAN DIFF ORDERED WBC (4.8 - 10.8 /CUMM) 12.5 H RBC (4.20 - 5.40 /CUMM) 3.48 L Hgb (12.0 - 16.0 G/DL) 11.4 L Hct (37 - 47 %) 35.8 L MCV (81.0 - 99.0 FL) 102.7 H MCH (27.0 - 31.0 PG) 32.9 H RDW (11.5 - 14.5 %) 14.1 Plt Count (130 - 400 /CUMM) 303 MPV (7.4 - 10.4 FL) 8.4 Gran % (42.2 - 75.2 %) 96.9 H Lymphocytes % (20.5 - 51.1 %) 1.4 L Monocytes % (1.7 - 9.3 %) 1.7 Eosinophils % (0 - 5 %) 0 Basophils % (0.0 - 2.0 %) 0 L Absolute Granulocytes (1.4 - 6.5 /CUMM) 12.1 H Segmented Neutrophils (42.2 - 75.2 %) 86 H Band Neutrophils (0.0 - 5.0 %) 12 H Absolute Lymphocytes (1.2 - 3.4 /CUMM) 0.2 L Lymphocytes (20.5 - 51.1 %) 1 L Monocytes (1.7 - 9.3 %) 1 L Absolute Monocytes (0.10 - 0.60 /CUMM) 0.2 Absolute Eosinophils (0.0 - 0.7 /CUMM) 0 Absolute Basophils (0.0 - 0.2 /CUMM) 0 Platelet Estimate (ADEQUATE) ADEQUATE Hypochromic-Microcytic 1+ Anisocytosis 1+ Macrocytic Cells 1+ PUBS MCHC (33.0 - 37.0 G/DL) 32.0 L Miscellaneous Phlebotomy Draw Site RIGHT RADIAL 04/01 04/01 2310 2125 Blood Gas pH (7.35 - 7.45 PH) 7.27 *L 7.13 *L pCO2 (35 - 45 TORR) 92 *H 151 *H pO2 (80 - 100 TORR) 51 L 173 H HCO3 (21 - 28 MEQ/L) 42 H 49 H ABG O2 Sat (Measured) (>96.0 %) 88.0 L 98.0 P-50 (Temp Corrected) Y Carboxyhemoglobin (1.5 - 5.0 %) 1.0 L 1.1 L O2 Concentration % 35 50 Temperature (97.0 - 100.0 FARH) 97.2 Respiration Rate (BPM) 24 O2 Delivery Method BIPAP V/M Vent Mode ST Expiratory Pressure (CM H2O P) 6 Inspiratory Pressure (CM H2O P) 18 Miscellaneous Phlebotomy Draw Site RIGHT RADIAL RIGHT RADIAL 04/01 2105 Chemistry Sodium (137 - 145 mmol/L) 144 Potassium (3.5 - 5.1 mmol/L) 4.6 Chloride (98 - 107 mmol/L) 90 L Carbon Dioxide (22 - 30 mmol/L) 47 H Anion Gap (5 - 16) 7 BUN (7 - 17 mg/dL) 14 Creatinine (0.5 - 1.0 mg/dL) 0.5 Estimated GFR (>60 ml/min) > 60 BUN/Creatinine Ratio (7 - 25 %) 28.0 H Glucose (65 - 99 mg/dL) 105 H Lactic Acid (0.7 - 2.1 mmol/L) 0.6 L Calcium (8.4 - 10.2 mg/dL) 8.9 Total Bilirubin (0.2 - 1.3 mg/dL) 0.4 AST (14 - 36 U/L) 33 ALT (9 - 52 U/L) 51 Alkaline Phosphatase (<127 U/L) 79 Total Protein (6.3 - 8.2 g/dL) 6.8 Albumin (3.5 - 5.0 g/dL) 4.0 Globulin (1.9 - 4.2 gm/dL) 2.8 Albumin/Globulin Ratio (1.1 - 2.2 %) 1.4 Coagulation PT (9.4 - 12.5 SEC) 9.5 INR (0.90 - 1.19) 0.90 APTT (25 - 37 SEC) 32 Hematology CBC w Diff NO MAN DIFF REQ WBC (4.8 - 10.8 /CUMM) 11.4 H RBC (4.20 - 5.40 /CUMM) 4.23 Hgb (12.0 - 16.0 G/DL) 13.8 Hct (37 - 47 %) 44.0 MCV (81.0 - 99.0 FL) 104.0 H MCH (27.0 - 31.0 PG) 32.6 H RDW (11.5 - 14.5 %) 14.5 Plt Count (130 - 400 /CUMM) 337 MPV (7.4 - 10.4 FL) 8.4 Gran % (42.2 - 75.2 %) 95.5 H Lymphocytes % (20.5 - 51.1 %) 2.7 L Monocytes % (1.7 - 9.3 %) 1.7 Eosinophils % (0 - 5 %) 0.1 Basophils % (0.0 - 2.0 %) 0 L Absolute Granulocytes (1.4 - 6.5 /CUMM) 10.9 H Absolute Lymphocytes (1.2 - 3.4 /CUMM) 0.3 L Absolute Monocytes (0.10 - 0.60 /CUMM) 0.2 Absolute Eosinophils (0.0 - 0.7 /CUMM) 0 Absolute Basophils (0.0 - 0.2 /CUMM) 0 PUBS MCHC (33.0 - 37.0 G/DL) 31.3 L Vital Signs Date Time Temp Pulse Resp B/P Pulse O2 O2 Flow FiO2 Ox Delivery Rate 04/02 0915 97.8 106 36 134/60 96 Nasal 5.0L Cannula 04/02 0725 BIPAP 35% 04/02 0724 97 98 04/02 0520 95 98 04/02 0318 95 96 04/02 0118 97.3 97 36 134/72 94 04/02 0031 Venti Mask 40% 04/02 0031 99 93 04/02 0029 92 Venti Mask 45% 04/01 2314 97.9 103 39 163/85 90 BIPAP 40% 04/010 24 96 BIPAP 35% 04/01 2150 97.7 88 24 141/79 94 Venti Mask 50% 04/01 2100 100 Non 100% ReBreather 04/01 2054 97.7 93 22 158/86 100 Non ReBreather Intake & Output 04/02 1600 04/02 0800 04/02 0000 Intake Total 605 Output Total 400 Balance 205 Intake, IV 465 Intake, Oral 140 Output, Urine 400 Patient 49.895 kg 49.895 kg Weight 1. Acute on chronic hypercapnic/hypoxemic respiratory failure 2. Acute exacerbation of COPD 3. Unintentional opioid overdose 4. Chronic pain Plan - Continue on general medicine - Discontinue Ceftriaxone - Continue Azithromycin - Continue Solumedrol, eventual taper - Follow pulmonary recommendations - Sputum culture - Continue home pain medications, monitor for sedation - BiPAP PRN - Continue home medications - DVT PPx
[2016-04-02 16:49] VITALS: BP 136/76
[2016-04-03 00:23] VITALS: BP 140/84
--- NOTE | 2016-04-03 02:20 | NUR ---
NURSE NOTE: (LATE ENTRY) AROUND 2014 PT STATED SHE FELT LIKE SHE WAS UNABLE TO BREATH. VITALS OBTAINED, 160/92, 97.6, 87 HR, 79% 4LNC. 02 INCREASES NEW SAT WAS 96% ON 8LNC THEN BROUGHT BACK TO 4LNC. RESP CAME AND PUT PT BACK ON BIPAP. SCOOPER CAME TO SEE PATIENT. PT STILL FEELING ANXIOUS AFTER BEING ON BIPAP, MD ORDER ATIVAN 0.5MG , PT RECIEVED ATIVAN. PT RESPONDED WELL TO. WILL CONTINUE TO MONITOR.
--- NOTE | 2016-04-03 08:46 | PN- Pulmonary ---
Subjective HPI/Critical Care Issues: pt seen and examined 96% on 3LNC afebrile hemodynamically stable trc/nebs on zithromax, spiriva, symbicort, solumedrol Objective Current Medications: Current Medications Sig/Osmar Start time Last Medication Dose Route Stop Time Status Admin Albuterol Sulfate 3 ML EVERY 4 HRS/AWAKE 04/02 0800 AC 04/03 INH 0758 Albuterol Sulfate 3 ML Q4H PRN 04/01 2345 AC 04/02 INH 0009 Azithromycin 500 MG DAILY 04/02 1000 AC 04/02 Dextrose/Water 250 ML IV 1012 Budesonide/ 2 PUF BID 04/02 1000 AC 04/02 Formoterol Fumarate INH 2217 Ceftriaxone Sodium 1,000 MG DAILY 04/02 1000 DC 04/02 IV 1012 Dextrose/Sodium 1,000 ML .[id number] 04/01 2345 DC 04/02 Chloride IV 04/02 1304 0123 Docusate Sodium 100 MG DAILY NEEDED PRN 04/02 1300 AC 04/02 PO 1333 Duloxetine HCl 20 MG DAILY 04/02 1000 AC 04/02 PO 1013 Enoxaparin Sodium 40 MG DAILY 04/02 1000 AC 04/02 SC 1012 Lorazepam 0.5 MG ONCE ONE 04/02 2044 DC 04/02 IV 04/02 Methylprednisolone 40 MG Q8 04/02 0600 AC 04/03 IV 0544 Mirtazapine 45 MG AT BEDTIME 04/02 2200 AC 04/02 PO 2216 Oxycodone HCl 15 MG Q12 04/02 1000 AC 04/02 PO 2216 Oxycodone/ 1 TAB TID 04/02 1000 AC 04/02 Acetaminophen PO 2216 Polyethylene Glycol 17 GM DAILY PRN 04/02 1300 AC PO Senna/Docusate Sodium 1 TAB BID PRN 04/02 1300 AC PO Tiotropium [place] 1 PUF DAILY 04/02 1000 AC 04/02 INH 1011 Trazodone HCl 100 MG AT BEDTIME 04/02 2200 AC 04/02 PO 2216 Vital Signs & I&O Last 24 Hrs of Vitals and I&O: Vital Signs Date Time Temp Pulse Resp B/P Pulse O2 O2 Flow FiO2 Ox Delivery Rate 04/03 0806 96 Nasal 3.0L Cannula 04/03 0755 90 98 04/03 0101 101 95 04/03 0023 97.0 95 20 140/84 94 04/03 0000 BIPAP 04/02 2144 Nasal 4.0L Cannula 04/02 1649 98.3 98 21 136/76 93 BIPAP 35% 04/02 1630 95 Nasal 3.0L Cannula 04/02 1600 93 Nasal 4.0L Cannula 04/02 0915 97.8 106 36 134/60 96 Nasal 5.0L Cannula Intake & Output 04/03 1600 04/03 0800 04/03 0000 Intake Total 260 240 Output Total Balance 260 240 Intake, IV 20 Intake, Oral 240 240 Exam Other Physical Findings: gen awake, thin heent ncat cvs s1, s2 lungs prolonged end expiratory phase abd soft, bs+ ext without edema Impression/Plan Impression/Plan Impression/Plan: Impression 50 year old woman -hypercarbic, hypoxemic respiratory failure, secondary to severe COPD, possible lung ca, bronchospasm vs medication (opiate/benzo) induced Plan -TRC/Nebs -continue solumedrol 40mg iv q8h -zithromax 5 day course -spo2 goal >88-92% -consideration for rehab -per previous discussions and pt wishes will not pursue spiculated lung mass -DNR/DNI
[2016-04-03 08:52] VITALS: BP 144/80
--- NOTE | 2016-04-03 09:00 | NUR ---
NURSING NOTE: PT BECAME VERY SOB AFTER USING THE BED SPENCER. O2 SAT ON 3L NC 82-85%. PER RESP AND GAIL OROZCO #420 PT PLACED BACK ON 5L NC AND AFTER SEVERAL MIN. O2 SAT 92% ON 5L. PT STATES SHE FEELS MUCH BETTER. MD AND RESP TO COME TO BEDSIDE. WILL CONTINUE TO MONITOR.
--- NOTE | 2016-04-03 10:45 | PN- Housestaff ---
Subjective Follow-up For: Acute hypercapnic respiratory failure Subjective: Patient is seen and examined at bedside. Patient appears in mild respiratory distress, with accessory respiratory muscles usage noted. Patient also appears mildly lethargic and cachectic. While examined respiratory therapy was also in the room and patient was receiving nebulizer and oxygen supplementation being optimized. She does complain of increased anxiety. She does not endorse any complaints of fever, chills, nausea, vomiting, abdominal pain, palpitation or tachycardia. He remembers son and daughter when the room and expressed their concern about their mother's respiratory worsening condition prior to being admitted. Review of Systems Constitutional: Reports: see HPI. Objective Last 24 Hrs of Vital Signs/I&O Vital Signs Date Time Temp Pulse Resp B/P Pulse O2 O2 Flow FiO2 Ox Delivery Rate 04/03 1655 96 Nasal 5.0L Cannula 04/03 1624 99.1 103 22 144/86 95 Nasal 4.0L Cannula 04/03 1147 94 Nasal 5.0L Cannula 04/03 0852 97.8 104 24 144/80 90 Nasal 4.0L Cannula 04/03 0806 96 Nasal 3.0L Cannula 04/03 0800 91 Nasal 5.0L Cannula 04/03 0755 90 98 04/03 0101 101 95 04/03 0023 97.0 95 20 140/84 94 04/03 0000 BIPAP 04/02 2144 Nasal 4.0L Cannula Physical Exam General Appearance: Alert, Oriented X3, Cooperative, cachectic and appears in mild to moderate distress Skin: No Significant Lesion Cardiovascular: Regular Rate, Normal S1, Normal S2 Lungs: rhonchi and wheezing bilaterally Abdomen: Normal Bowel Sounds, Soft, No Tenderness Neurological: Strength at 5/5 X4 Ext, Normal Tone, Sensation Intact Assessment/Plan Assessment: This is 50 yo F with h/o chronic hypoxic respiratory failure, 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 #Acute hypercapnic respiratory failure Patient presented with increased shortness of breath, ABG obtained during admission was significant for elevated CO2 with her hypercapnic respiratory failure findings. She uses chronic opioids for her chronic pain which is managed by pain specialist. She also has anxiety history. This is a very unfortunate combination in a patient with moderate to severe COPD as her chronic opiate use and increased anxiety most likely exacerbated and presented with acute hypercapnic respiratory failure. Plan Continue O2 supplementatioN, currently down to 4 L nasal cannula. Goal is to keep sats around 90%. Continue TRC nebs Continue to follow pulmonology, recommendation Low-dose lorazepam as needed for anxiety #Anxiety disorder Patient reports history of panic attacks and general anxiety. This condition precipitates and worsened her already compromised respiratory condition with COPD. Plan We'll administer low-dose lorazepam as needed for anxiety #Chronic pain Patient is on chronic opiate use and is managed by pain specialist. Unfortunate position of having 2 manage her pain which seems to also exacerbate her respiratory status if is not treated, and the potentiation of worsening respiratory status from the side effects of her pain medication, will for reassessment of pain therapy to manage risk versus benefit. Plan Will obtain pain consult with Dr. Jimenez (who is also fabian's outpatient pain doctor). Will try to avoid opiate medication as much as possible. Problem List: 1. COPD 2. Hypercapnic respiratory failure 3. Anxiety Pain Ratin Pain Location: back pain Pain Goal: Pain 4 or less Pain Plan: PER PAIN PATHWAY Tomorrow's Labs & Rationales: CBC BEP Consulting Request: Consulting Specialty: Pulmonary Disease
[2016-04-03 16:24] VITALS: BP 144/86
--- NOTE | 2016-04-03 16:45 | Cons- Pain Management ---
General Information and HPI Consulting Request Date of Consult: 04/03/16 Requested By: JEREMI MARIEE MD History of Present Illness: Asked to consult on this patient. She is a patient of [facility]. Pt and family states 4 days of poor breathing and not being able to catch breath despite 8L of O2. Patient states possibly caused by 10mg MED increase which was done in early February of 2016. Patient resting in bed when I arrived, working to breath somewhat. Allergies/Medications Allergies: Coded Allergies: NO KNOWN ALLERGIES (10/11/14) Home Med List: Albuterol Sulfate (Ventolin Hfa) 18 GM HFA.AER.AD 2 PUF INH Q4H PRN COPD ( Reported) Alendronate Sodium 35 MG TABLET 1 TAB PO QW OSTEOPOROSIS (Reported) Budesonide/Formoterol Fumarate (Symbicort 160-4.5 Mcg Inhaler) 10.2 GM HFA.AER.AD 2 PUF INH BID COPD (Reported) Duloxetine HCl 20 MG CAPSULE.DR 1 CAP PO DAILY DEPRESSION (Reported) Mirtazapine 45 MG TABLET 1 TAB PO QHS MENTAL HEALTH (Reported) Oxycodone HCl (Oxycontin) 15 MG TAB.ER.12H 1 TAB PO PRN CHRONIC PAIN ( Reported) Oxycodone HCl/Acetaminophen (Percocet 7.5-325 MG Tablet) 7.5 MG-325 MG TABLET 1 TAB PO TID CHRONIC PAIN (Reported) Prednisone 10 MG TABLET 1 TAB PO TID COPD (Reported) PER PATIENT Tiotropium [place] (Spiriva) 18 MCG CAP.W.DEV 1 CAP INH DAILY COPD (Reported) Trazodone HCl 100 MG TABLET 1 TAB PO QHS SLEEP (Reported) Past History Medical History Blood Transfusion Hx No Neurological: NONE EENT: NONE Cardiovascular: NONE Respiratory: COPD, pneumonia, 5L NC DEPENDENT RESPIRATORY FAILURE LUNG CA Gastrointestinal: NONE Hepatic: NONE Renal: NONE Musculoskeletal: NONE Psychiatric: anxiety, depression Endocrine: NONE Blood Disorders: anemia Cancer(s): lung cancer 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 SISTER (breast cancer, diabetes, cad). BROTHER (diabetes, cad). Psychosocial History Where Do You Live? Home Services at Home: None Smoking Status: Current Everyday Smoker ETOH Use: denies use Illicit Drug Use: denies illicit drug use Exam & Diagnostic Data Last 24 Hrs of Vitals/I&Os: Vital Signs Date Time Temp Pulse Resp B/P Pulse O2 O2 Flow FiO2 Ox Delivery Rate 04/03 1624 99.1 103 22 144/86 95 Nasal 4.0L Cannula 04/03 1147 94 Nasal 5.0L Cannula 04/03 0852 97.8 104 24 144/80 90 Nasal 4.0L Cannula 04/03 0806 96 Nasal 3.0L Cannula 04/03 0800 91 Nasal 5.0L Cannula 04/03 0755 90 98 04/03 0101 101 95 04/03 0023 97.0 95 20 140/84 94 04/03 0000 BIPAP 04/02 2144 Nasal 4.0L Cannula 04/02 1649 98.3 98 21 136/76 93 BIPAP 35% Intake & Output 04/03 1600 04/03 0800 04/03 0000 Intake Total 850 260 240 Output Total 900 Balance -50 260 240 Intake, IV 250 20 Intake, Oral 600 240 240 Output, Urine 900 Patient 99 lb 15.99 oz Weight Assessment/Plan Assessment/Plan: My reccommendations are the following: - Long-term Rehab after discharge to learn how to cope with O2 Sats below 90% - agree with current opioid regimen 5/325 percocoet tid prn and oxycontin 15mg bid - agree with a low dose oral Benzo for anxiety - Social work consult to help to get Bipap at home which could help to decrease elevated CO2 - make appt with [facility] after shelter rehab stint Consult Acknowledgment - Thank you for your consult request.
--- NOTE | 2016-04-03 17:47 | PN- Att Addend ---
Attending MD Review Statement Attending Statement Attending MD Statement: examined this patient, discuss w/resident/PA/FOREPART ROUNDER, agreed w/resident/PA/FOREPART ROUNDER, reviewed EMR data (avail), discussed w/nursing, discussed w/ case mgmt Attending Assessment/Plan: Vital Signs Date Time Temp Pulse Resp B/P Pulse O2 O2 Flow FiO2 Ox Delivery Rate 04/03 1655 96 Nasal 5.0L Cannula 04/03 1624 99.1 103 22 144/86 95 Nasal 4.0L Cannula 04/03 1147 94 Nasal 5.0L Cannula 04/03 0852 97.8 104 24 144/80 90 Nasal 4.0L Cannula 04/03 0806 96 Nasal 3.0L Cannula 04/03 0800 91 Nasal 5.0L Cannula 04/03 0755 90 98 04/03 0101 101 95 04/03 0023 97.0 95 20 140/84 94 04/03 0000 BIPAP 04/02 2144 Nasal 4.0L Cannula Laboratory Tests 04/02/16 0626: Anion Gap 7, Estimated GFR > 60, BUN/Creatinine Ratio 25.0, Troponin I < 0.01, CBC w Diff MAN DIFF ORDERED, RBC 3.48 L, MCV 102.7 H, MCH 32.9 H, RDW 14.1, MPV 8.4, Gran % 96.9 H, Lymphocytes % 1.4 L, Monocytes % 1.7, Eosinophils % 0, Basophils % 0 L, Absolute Granulocytes 12.1 H, Segmented Neutrophils 86 H, Band Neutrophils 12 H, Absolute Lymphocytes 0.2 L, Lymphocytes 1 L, Monocytes 1 L, Absolute Monocytes 0.2, Absolute Eosinophils 0, Absolute Basophils 0, Platelet Estimate ADEQUATE, Hypochromic-Microcytic 1+, Anisocytosis 1+, Macrocytic Cells 1+, PUBS MCHC 32.0 L 04/02/16 0515: pH 7.33 L, pCO2 79 *H, pO2 98, HCO3 42 H, ABG O2 Sat (Measured) 96.0, P-50 ( Temp Corrected) Y, Carboxyhemoglobin 1.5, O2 Concentration % 40%, Temperature 97.3, Respiration Rate 24, O2 Delivery Method VISION-FFM, Vent Mode ST, Expiratory Pressure 6, Inspiratory Pressure 18, Phlebotomy Draw Site RIGHT RADIAL 04/02/16 0200: Lactic Acid 0.7 04/01/16 2310: pH 7.27 *L, pCO2 92 *H, pO2 51 L, HCO3 42 H, ABG O2 Sat (Measured) 88.0 L, P- 50 (Temp Corrected) Y, Carboxyhemoglobin 1.0 L, O2 Concentration % 35, Temperature 97.2, Respiration Rate 24, O2 Delivery Method BIPAP, Vent Mode ST, Expiratory Pressure 6, Inspiratory Pressure 18, Phlebotomy Draw Site RIGHT RADIAL 04/01/162124: pH 7.13 *L, pCO2 151 *H, pO2 173 H, HCO3 49 H, ABG O2 Sat (Measured) 98.0, Carboxyhemoglobin 1.1 L, O2 Concentration % 50, O2 Delivery Method V/M, Phlebotomy Draw Site RIGHT RADIAL 04/01/162105: Anion Gap 7, Estimated GFR > 60, BUN/Creatinine Ratio 28.0 H, Glucose 105 H, Lactic Acid 0.6 L, Calcium 8.9, Total Bilirubin 0.4, AST 33, ALT 51, Alkaline Phosphatase 79, Total Protein 6.8, Albumin 4.0, Globulin 2.8, Albumin/Globulin Ratio 1.4, PT 9.5, INR 0.90, APTT 32, CBC w Diff NO MAN DIFF REQ, RBC 4.23, MCV 104.0 H, MCH 32.6 H, RDW 14.5, MPV 8.4, Gran % 95.5 H, Lymphocytes % 2.7 L, Monocytes % 1.7, Eosinophils % 0.1, Basophils % 0 L, Absolute Granulocytes 10.9 H, Absolute Lymphocytes 0.3 L, Absolute Monocytes 0.2, Absolute Eosinophils 0, Absolute Basophils 0, PUBS MCHC 31.3 L Microbiology 04/01 2119 NASOPHARYN: Influenza Virus A & B Rapid Smear - COMP Patient admitted with hypercapnic and hypoxic respiratory failure secondary to COPD as well as possible medication induced. Discussed with patient as well as patient's family at bedside the care plan. Discussed with cyber policy and strategy planner the care plan. We will get a pain management consult to address the pain management issue. Patient also has anxiety so we'll add low-dose Ativan. Discussed with patient as well as patient's family the importance of cutting down on pain medications given her severe COPD. Patient's family was also told not to increase her oxygen flow rate and to titrate to keep her oxygen saturation between 88-92%
--- NOTE | 2016-04-03 20:12 | NUR ---
2000 PATIENT STATES HAVING ANXIETY. PATIENT IS SHORT OF BREATH AFTER USING THE BEDSIDE COMMODE. 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 MDEICATION GIVEN PATIENT IS ALERT AND ORIENTED X 3. VITAL SIGNS STABLE. ON 4L O2 VIA NC DENIES CHEST PAIN. + PULSES. WILL CONTINUE TO MONITOR
[2016-04-04 01:17] VITALS: BP 139/72
--- NOTE | 2016-04-04 06:47 | Discharge Summary ---
Visit Information Visit Dates Admission Date: 04/01/16 Discharge Date: 04/07/2016 Hospital Course Course Attending Physician: JEREMI MARIEE MD Primary Care Physician: CHRISTIE DIAZ MD Consulting Request: Consulting Specialty: Pulmonary Disease Hospital Course: 50-year-old lady with a PMH of advanced COPD on home supplemental O2, current tobacco use, previous CT findings of mass likely malignancy, chronic pain, anxiety/panic disorder, depression, osteopenia BIBA with noticed altered mental status and shortness of breath. EMS reports indicated pinpoint pupils on initial assessment attribute it to oxycodone and OxyContin that she is prescribed from the pain center. Son reported that over the past few days she has had increased requirements of supplemental oxygen going up from 2 L to 8 L and having gone through multiple oxygen canisters past 7 days. She did have a 3 day duration of URI symptoms and associated green sputum for which she was taking [id number] medications and nebulizer therapy at home. VS on admission: BP 156, HR 93, RR 22, SPO2 100% on an RV: T 97.7 PE on admission: Patient appeared to be in moderate distress on BiPAP, dry mucous membranes, rapid heart rate. Lungs: Diffuse wheezing and rhonchi was auscultated. Abdomen soft and nontender. No edema in bilateral lower extremities Pertinent labs: WBC 11.4, H&H 13.4/44.0, chloride 90, bicarbonate 47, BUN/CR 14/ 0.5 EKG: Normal sinus rhythm, no acute ST-T changes CXR: Chronic bronchovascular prominence with emphysema ABG on admission: 7.13/151/173/49/50% on Ventimask ABG 2 hours later: 7.27/92/51/42/35% on BiPAP 18/6 ABG 6 hours later: /42/40% on BiPAP 18/6 The patient was admitted to general medicine and managed for the following problems: 1. Hypercarbic respiratory failure: multifactorial etiology with severe COPD, bronchospasms versus medication-induced (opiates/benzo's). 2. COPD exacerbation 3. Anxiety disorder 4. Chronic pain 5. Gram-negative reginald bacteremia Hospital course: 1. Hypercarbic respiratory failure: multifactorial etiology with severe COPD, bronchospasms versus medication-induced (opiates/benzo's) * The patient was started on BiPAP for respiratory support with serial ABGs as indicated above. Along with this we also started the patient on IV steroids, Solu-Medrol and nebulized therapy with noticeable improvement over the hospital course. We initially did hold off on her analgesic medications but gradually reintroduced while monitoring for respiratory depression * The patient, her family, painter supervisor (Dr. Bell) and the entire medical team did have discussions with regards to goals of care. The patient decided that in the setting of her progressive deterioration it would be appropriate for her to go home with hospice. Patient was assessed by the hospice team removal and discharge on the following medications: * Morphine concentrate 20 mg per mL to be administered 5-10 mg SL (0.25 mL to 0.5 mL) Q2PRN for pain and acute respiratory distress * Lorazepam Intensol 2 mg per mL administer 0.5 mg to 1 mg (0.25 mL to 0.5 mL) SL Q4PRN for anxiety * Transdermal scopolamine 1.5 mg patch to apply 1-2 patches behind the ear Q72hrs for secretions * Atropine 1% drops. Please 2 drops sublingual Q2 PRN for secretions. Discontinue if ineffective * Nebulizer treatments (machine already ordered) 2. COPD exacerbation * CT chest with angiogram on 03/06/2013 did show a 6 mm groundglass opacity and 9 mm subpleural density in the left lower lobe. The patient opted not to have this further worked up * Recommendations as above 3. Gram-negative rods bacteremia * Blood cultures from 04/01/1602/13 bottles came back positive for GNR's. She did receive 4 days of IV antibiotics. We'll discharge her on 10 day course of ciprofloxacin 500 mg BID 4. Anxiety disorder * We started the patient on Ativan 0.25 mg Q8PRN with successful control of anxiety 5. Chronic pain * G with OxyContin CR 50 mg twice a day and Percocet when necessary Allergies: Coded Allergies: NO KNOWN ALLERGIES (10/11/14) Disposition Summary Disposition Principal Diagnosis: Hypercarbic respiratory failure: multifactorial etiology with severe COPD, bronchospasms versus medication-induced (opiates/benzo's) Additional Diagnosis: COPD exacerbation Anxiety disorder Possible lung malignancy Gram-negative rods bacteremia Discharge Disposition: hospice - home Discharge Instructions General Discharge Information Code Status: Do Not Resucitate/Intubat Patient's Diet: Regular diet Patient's Activity: As tolerated Follow-Up Instructions/Appts: You're being discharged home on home hospice. Please follow-up with the painter supervisor and PCP as needed Medications at Discharge Discharge Medications: Stop taking the following medications: Alendronate Sodium (Alendronate Sodium) 35 MG TABLET ORAL Once a Week Qty = 4 Continue taking these medications: Albuterol Sulfate (Ventolin Hfa) 18 GM HFA.AER.AD 2 Puff Inhale through mouth Q4H as needed for COPD Qty = 18 Comments: Last Taken: NOT GIVEN IN HOSPITAL Time: Mirtazapine (Mirtazapine) 45 MG TABLET 1 Tablet ORAL TAKE AT BEDTIME Qty = 30 Comments: Last Taken:04/06/18 Time: 9:23P.M Tiotropium [place] (Spiriva) 18 MCG CAP.W.DEV 1 Capsule Inhale through mouth DAILY Qty = 30 Comments: Last Taken:04/07/16 Time:9:05A.M Trazodone HCl (Trazodone HCl) 100 MG TABLET 1 Tablet ORAL TAKE AT BEDTIME Qty = 30 Comments: Last Taken:04/06/16 Time:9:18P.M Budesonide/Formoterol Fumarate (Symbicort 160-4.5 Mcg Inhaler) 10.2 GM HFA.AER.AD 2 Puff Inhale through mouth TWICE DAILY Qty = 10 Comments: Last Taken: 04/07/16 Time: 9:05A.M Oxycodone HCl (Oxycontin) 15 MG TAB.ER.12H 1 Tablet ORAL NEEDED Comments: Last Taken:04/07/16 Time: 9:05A.M Oxycodone HCl/Acetaminophen (Percocet 7.5-325 MG Tablet) 7.5 MG-325 MG TABLET 1 Tablet ORAL THREE TIMES DAILY Qty = 90 Comments: Last Taken:04/07/16 Time:9:05A.M Duloxetine HCl (Duloxetine HCl) 20 MG CAPSULE.DR 1 Capsule ORAL DAILY Qty = 120 Comments: Last Taken:04/07/16 Time:9:05A.M Prednisone (Prednisone) 10 MG TABLET 1 Tablet ORAL DAILY Qty = 60 Instructions: Please resume as your maintenance once the taper is complete Start taking the following new medications: Docusate Sodium (Docusate Sodium) 100 MG CAPSULE 100 Milligram ORAL DAILY NEEDED as needed for CONSTIPATION Qty = 30 No Refills Comments: Last Taken: 04/02/16 Time:1:33P.M Polyethylene Glycol 3350 (Miralax) 17 GRAM/DOSE POWDER 17 Gram ORAL DAILY as needed for CONSTIPATION Qty = 30 No Refills Comments: Last Taken:04/04/16 Time:9:01A.M Sennosides/Docusate Sodium (Senna Plus Tablet) 8.6 MG-50 MG TABLET 1 Tablet ORAL TWICE DAILY as needed for CONSTIPATION Qty = 30 No Refills Comments: Last Taken:04/04/16 Time: 9:01A.M Morphine Sulfate (Morphine Sulfate) 20 MG/ML SYRINGE 2.5-5 Milligram SUBLINGUAL Every 2 hours as needed for JULIANE /PAIN Qty = 30 No Refills Comments: Last Taken: NOT STARTED IN HOSPITAL Time: MORPHINE 1MG IV GIVEN 04/07/16 AT 11:16A.M Scopolamine Hydrobromide (Transderm-Scop) 1.5MG/3DAY PATCH.TD.3 1 Patch On the skin Every 3 days Qty = 4 No Refills Instructions: apply to the hairless area behind 1 ear at least 4 hours before effect is required; reapply every 3 days as needed Comments: Last Taken:NOT STARTED IN HOSPITAL Time: Oxycodone HCl (Oxycodone HCl) 5 MG TABLET 1-2 Tablet ORAL Every 4 hours as needed for PAIN Days = 14 No Refills Comments: Last Taken: NOT GIVNE IN HOSPITAL Time: Lorazepam (Lorazepam Intensol) 2 MG/ML ORAL.CONC 0.5-1.0 Milligram SUBLINGUAL Every 4 hours as needed for ANXIETY Days = 14 No Refills Comments: Last Taken:NOT STARTED IN HOSPITAL Time: ATIVAN 0.25MG PO GIVEN 04/07/16 AT 8:44A.M Ciprofloxacin HCl (Cipro) 500 MG TABLET 1 Tablet ORAL TWICE DAILY Qty = 20 No Refills Comments: Last Taken: NOT GIVEN IN HOSPITAL Time: Prednisone (Prednisone) 10 MG TABLET 1 Tablet ORAL As Directed Qty = 63 No Refills Instructions: On Take 04/08-04/10 60 MG 04/11-04/13 50 MG 04/14-04/16 40 MG 04/17-04/19 30 MG 04/20-04/22 20 MG 04/23-04/25 10 MG Then Stop Copies To: JOE GOLDEN,CHRISTIE; LEANNA GOLDEN,DINORA Attending MD Review Statement Documenting Attending: JAYLENE GOLDEN,JEREMI Silvestre Other Findings: Agree with the above discharge plan.
[2016-04-04 07:47] LABS: ABSOLUTE BASOPHIL COUNT 0 /CUMM (0.0-0.2); ABSOLUTE EOSINOPHIL COUNT 0 /CUMM (0.0-0.7); ABSOLUTE GRANULOCYTE CT 8.1 /CUMM (1.4-6.5); ABSOLUTE LYMPH COUNT 0.4 /CUMM (1.2-3.4); ABSOLUTE MONOCYTE COUNT 0.6 /CUMM (0.10-0.60); BASOPHIL % 0 % (0.0-2.0); EOSINOPHIL % 0 % (0-5); GRANULOCYTE % 89.5 % (42.2-75.2); MEAN CORPUSCULAR HGB 32.8 PG (27.0-31.0); MEAN CORPUSCULAR HGB CONC 32.2 G/DL (33.0-37.0); MEAN CORPUSCULAR VOLUME 101.7 FL (81.0-99.0); MEAN PLATELET VOLUME 8.4 FL (7.4-10.4); PLATELET COUNT 326 /CUMM (130-400); RBC DISTRIBUTION WIDTH 14.4 % (11.5-14.5); RED BLOOD CELL CT 3.54 /CUMM (4.20-5.40)
[2016-04-04 08:02] VITALS: BP 140/82
--- NOTE | 2016-04-04 08:27 | PN- Student ---
Subjective Subjective: 50 y.o. female seen and examined at bedside. Pt just woke up, slept well last night. She says her breathing is currently good. She is using BiPAP while sleeping and nebulizer treatments during the day which have been helping. Chronic back pain is well controlled on current medication regimen. She says her anxiety is improved since being started on Ativan yesterday. She has been out of bed to the bathroom but says she panics when she needs to walk. Urinating spontaneously, denies dysuria, urgency, frequency. Tolerating diet, denies nausea/vomiting. No other questions, concerns, or complaints this morning. ROS: General: neg fever/chills Neuro: pos headache, neg visual changes Cardiac: neg chest pain, palpitations Lungs: pos SOB, wheezing, productive cough GI: neg abdominal pain, nausea/vomiting, constipation/diarrhea Objective Objective: General: resting in bed, very thin, moderate respiratory distress with accessory muscle use and hyperventilation, in no acute distress Cardiac: S1 and S2 heard, RRR, no M/R/G Lungs: wheezes and rhonchi bilaterally in all lung maldonado anteriorly and posteriorly Abdomen: flat, nondistended, normoactive BS, soft, nontender to palpation MSK: no LE edema, calves soft and nontender, pedal pulses 2+ bilaterally Results Results: Laboratory Tests 04/06/16 0630: Sodium Pending, Potassium Pending, Chloride Pending, Carbon Dioxide Pending, Anion Gap Pending, BUN Pending, Creatinine Pending, BUN/Creatinine Ratio Pending , CBC w Diff Pending, WBC Pending, RBC Pending, Hgb Pending, Hct Pending, MCV Pending, MCH Pending, RDW Pending, Plt Count Pending, MPV Pending, Gran % Pending, Lymphocytes % Pending, Monocytes % Pending, Eosinophils % Pending, Basophils % Pending, Absolute Granulocytes Pending, Absolute Lymphocytes Pending , Absolute Monocytes Pending, Absolute Eosinophils Pending, Absolute Basophils Pending, PUBS MCHC Pending 04/05/16 0620: Anion Gap 3 L, Estimated GFR > 60, BUN/Creatinine Ratio 28.0 H 04/04/16 1528: Anion Gap 0 L, Estimated GFR > 60, BUN/Creatinine Ratio 22.0 04/04/16 0646: Anion Gap 6, Estimated GFR > 60, BUN/Creatinine Ratio 22.0, Phosphorus 3.5, Magnesium 2.1, CBC w Diff NO MAN DIFF REQ, RBC 3.54 L, MCV 101.7 H, MCH 32.8 H, RDW 14.4, MPV 8.4, Gran % 89.5 H, Lymphocytes % 3.9 L, Monocytes % 6.6, Eosinophils % 0, Basophils % 0 L, Absolute Granulocytes 8.1 H, Absolute Lymphocytes 0.4 L, Absolute Monocytes 0.6, Absolute Eosinophils 0, Absolute Basophils 0, PUBS MCHC 32.2 L 04/03/16 1710: Urine Opiates Screen 267.00, Methadone Screen 56, Barbiturate Screen < 60, Ur Phencyclidine Scrn < 6.00, Amphetamines Screen < 100, U Benzodiazepines Scrn < 85, Urine Cocaine Screen < 50, Urine Cannabis Screen < 5.00 Assessment/Plan Assessment: 50 y.o. female h/o end-stage COPD and possible pulmonary neoplasm currently stable, respiratory status is improving to baseline. Plan: COPD: - patient and family have discussed home hospice care - discontinue azithromycin after 5 days of treatment - continue solumedrol - continue nebulizer treatments and BiPAP PRN Pulmonary lesion: - patient does not desire further investigation and treatment
--- NOTE | 2016-04-04 08:29 | PN- Housestaff ---
Subjective Follow-up For: Acute hypercapnic respiratory failure Subjective: Patient is seen and examined at bedside. Patient does appear in mild respiratory distress and slightly anxious. Patient's son was in the room when she was being examined. She still endorses shortness of breath which she states , are worsened with anxiety. She however endorses marketed improvement with total low-dose lorazepam when necessary medication that was started for anxiety. Does not endorse any chest pain, palpitation, fever, chills, nausea, vomiting, abdominal pain or dysuria. No acute overnight events reported by nursing staff Review of Systems Constitutional: Reports: see HPI. Objective Last 24 Hrs of Vital Signs/I&O Vital Signs Date Time Temp Pulse Resp B/P Pulse O2 O2 Flow FiO2 Ox Delivery Rate 04/04 1645 98 Nasal 4.0L Cannula 04/04 1628 98.2 89 18 126/82 95 Nasal 3.0L Cannula 04/04 1600 90 Nasal 5.0L Cannula 04/04 0808 90 Nasal 4.0L Cannula 04/04 0802 98.4 101 18 140/82 99 Nasal 3.0L Cannula 04/04 0800 91 Nasal 3.0L Cannula 04/04 0117 97.8 130 20 139/72 96 Nasal 3.0L Cannula 04/04 0000 Nasal 3.0L Cannula Intake & Output 04/04 1600 04/04 0800 04/04 0000 Intake Total 800 15 300 Output Total 950 1100 Balance -150 15 -800 Intake, IV 15 Intake, Oral 800 300 Output, Urine 950 1100 Physical Exam General Appearance: Alert, Oriented X3, Cooperative, mild distress Skin: No Significant Lesion HEENT: Atraumatic Cardiovascular: Regular Rate, Normal S1, Normal S2 Lungs: diffuse wheezing and rhonchi bilateral Abdomen: Normal Bowel Sounds, Soft, No Tenderness Extremities: No Clubbing, No Cyanosis, No Edema Assessment/Plan Assessment: This is 50 yo F with h/o chronic hypoxic respiratory failure, 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 #Acute hypercapnic respiratory failure Patient presented with increased shortness of breath, ABG obtained during admission was significant for elevated CO2 with her hypercapnic respiratory failure findings. She uses chronic opioids for her chronic pain which is managed by pain specialist. She also has anxiety history. This is a very unfortunate combination in a patient with moderate to severe COPD as her chronic opiate use and increased anxiety most likely exacerbated and presented with acute hypercapnic respiratory failure. Plan Continue O2 supplementatioN, currently down to 4 L nasal cannula. Goal is to keep sats around 90%. Continue TRC nebs Continue to follow pulmonology, recommendation Low-dose lorazepam as needed for anxiety #Anxiety disorder Patient reports history of panic attacks and general anxiety. This condition precipitates and worsened her already compromised respiratory condition with COPD. Plan We'll administer low-dose lorazepam as needed for anxiety #Chronic pain Patient is on chronic opiate use and is managed by pain specialist. Unfortunate position of having 2 manage her pain which seems to also exacerbate her respiratory status if is not treated, and the potentiation of worsening respiratory status from the side effects of her pain medication, will for reassessment of pain therapy to manage risk versus benefit. Plan Recommendation from patient's pain doctor appreciated. Continue with the reduced dose of Percocet 5 mg 3 times a day and OxyContin 15 mg twice a day. We refrain from adding any other opioid or sedating medications #Disposition Discussion of goals of care was met with Dr. Bell informing us that the patient and her family is amenable for discussion of palliative/hospice management. Plan Notified Janki for evaluation of palliative/hospice Problem List: 1. COPD 2. Respiratory failure 3. Hypercapnic respiratory failure Pain Ratin Pain Location: back Pain Goal: Pain 4 or less Pain Plan: continue percocet 5 and oxyconton 15 bid Tomorrow's Labs & Rationales: cbc BEP-HYPERKALEMIA Consulting Request: Consulting Specialty: Pulmonary Disease
--- NOTE | 2016-04-04 13:27 | PN- Pulmonary ---
Subjective HPI/Critical Care Issues: pt seen and examined family at bedside conversation regarding goals of care was held considering hospice evaluation, pt open minded regarding this tripoding and dyspneic Objective Current Medications: Current Medications Sig/Osmar Start time Last Medication Dose Route Stop Time Status Admin Albuterol Sulfate 3 ML EVERY 4 HRS/AWAKE 04/02 0800 AC 04/04 INH 1202 Albuterol Sulfate 3 ML Q4H PRN 04/01 2345 AC 04/02 INH 0009 Azithromycin 500 MG DAILY 04/02 1000 AC 04/04 Dextrose/Water 250 ML IV 0901 Budesonide/ 2 PUF BID 04/02 1000 AC 04/04 Formoterol Fumarate INH 0900 Docusate Sodium 100 MG DAILY NEEDED PRN 04/02 1300 AC 04/02 PO 1333 Duloxetine HCl 20 MG DAILY 04/02 1000 AC 04/04 PO 0900 Enoxaparin Sodium 40 MG DAILY 04/02 1000 AC 04/03 SC 0917 Lorazepam 0.25 MG 0800 04/04 0800 AC 04/04 PO 04/11 0759 0753 Lorazepam 0.5 MG ONE ONE 04/03 2000 DC 04/03 PO 04/03 Methylprednisolone 40 MG Q12 04/04 220 AC IV Methylprednisolone 40 MG Q8 04/02 0600 DC 04/04 IV 0507 Mirtazapine 45 MG AT BEDTIME 04/02 2200 AC 04/03 PO 212 Oxycodone HCl 15 MG Q12 04/02 1000 AC 04/04 PO 0901 Oxycodone/ 1 TAB TID 04/02 1000 AC 04/04 Acetaminophen PO 0901 Polyethylene Glycol 17 GM DAILY PRN 04/02 1300 AC 04/04 PO 0901 Senna/Docusate Sodium 1 TAB BID PRN 04/02 1300 AC 04/04 PO 0901 Tiotropium [place] 1 PUF DAILY 04/02 1000 AC 04/04 INH 0900 Trazodone HCl 100 MG AT BEDTIME 04/02 2200 AC 04/03 PO 2127 Vital Signs & I&O Last 24 Hrs of Vitals and I&O: Vital Signs Date Time Temp Pulse Resp B/P Pulse O2 O2 Flow FiO2 Ox Delivery Rate 04/04 0808 90 Nasal 4.0L Cannula 04/04 0802 98.4 101 18 140/82 99 Nasal 3.0L Cannula 04/04 0800 91 Nasal 3.0L Cannula 04/04 0117 97.8 130 20 139/72 96 Nasal 3.0L Cannula 04/04 0000 Nasal 3.0L Cannula 04/03 1655 96 Nasal 5.0L Cannula 04/03 1624 99.1 103 22 144/86 95 Nasal 4.0L Cannula 04/03 1600 Nasal 5.0L Cannula Intake & Output 04/04 1600 04/04 0800 04/04 0000 Intake Total 15 300 Output Total 1100 Balance 15 -800 Intake, IV 15 Intake, Oral 300 Output, Urine 1100 Exam Other Physical Findings: gen awake, alert, mild-mod respiratory distress heent using accessory muscles cvs s1, s2 lungs diminished bs, prolonged end expiratory phase abd soft bs+ ext without edema Results Last 24 Hrs of Lab Results: Laboratory Tests 04/04/16 0646: Anion Gap 6, Estimated GFR > 60, BUN/Creatinine Ratio 22.0, Phosphorus 3.5, Magnesium 2.1, CBC w Diff NO MAN DIFF REQ, RBC 3.54 L, MCV 101.7 H, MCH 32.8 H, RDW 14.4, MPV 8.4, Gran % 89.5 H, Lymphocytes % 3.9 L, Monocytes % 6.6, Eosinophils % 0, Basophils % 0 L, Absolute Granulocytes 8.1 H, Absolute Lymphocytes 0.4 L, Absolute Monocytes 0.6, Absolute Eosinophils 0, Absolute Basophils 0, PUBS MCHC 32.2 L 04/03/16 1710: Urine Opiates Screen 267.00, Methadone Screen 56, Barbiturate Screen < 60, Ur Phencyclidine Scrn < 6.00, Amphetamines Screen < 100, U Benzodiazepines Scrn < 85, Urine Cocaine Screen < 50, Urine Cannabis Screen < 5.00 Impression/Plan Impression/Plan Impression/Plan: Impression 50 year old woman -hypercarbic, hypoxemic respiratory failure, secondary to severe COPD, possible lung ca, bronchospasm vs medication (opiate/benzo) induced Plan -TRC/Nebs -continue solumedrol 40mg iv q8h -zithromax 5 day course -spo2 goal >88-92% -per previous discussions and pt wishes will not pursue spiculated lung mass -DNR/DNI Discussion regarding goals of care was held with patient and her children. She is amenable for an evaluation by the hospice team. This would be an acceptable option.
--- NOTE | 2016-04-04 15:41 | PN- Att Addend ---
Attending MD Review Statement Attending Statement Attending MD Statement: examined this patient, discuss w/resident/PA/CADASTRAL SURVEYOR, agreed w/resident/PA/CADASTRAL SURVEYOR, reviewed EMR data (avail), discussed w/nursing, discussed w/ case mgmt Attending Assessment/Plan: Laboratory Tests 04/04/16 1528: Sodium Pending, Potassium Pending, Chloride Pending, Carbon Dioxide Pending, Anion Gap Pending, BUN Pending, Creatinine Pending, BUN/Creatinine Ratio Pending 04/04/16 0646: Anion Gap 6, Estimated GFR > 60, BUN/Creatinine Ratio 22.0, Phosphorus 3.5, Magnesium 2.1, CBC w Diff NO MAN DIFF REQ, RBC 3.54 L, MCV 101.7 H, MCH 32.8 H, RDW 14.4, MPV 8.4, Gran % 89.5 H, Lymphocytes % 3.9 L, Monocytes % 6.6, Eosinophils % 0, Basophils % 0 L, Absolute Granulocytes 8.1 H, Absolute Lymphocytes 0.4 L, Absolute Monocytes 0.6, Absolute Eosinophils 0, Absolute Basophils 0, PUBS MCHC 32.2 L 04/03/16 1710: Urine Opiates Screen 267.00, Methadone Screen 56, Barbiturate Screen < 60, Ur Phencyclidine Scrn < 6.00, Amphetamines Screen < 100, U Benzodiazepines Scrn < 85, Urine Cocaine Screen < 50, Urine Cannabis Screen < 5.00 Vital Signs Date Time Temp Pulse Resp B/P Pulse O2 O2 Flow FiO2 Ox Delivery Rate 04/04 0808 90 Nasal 4.0L Cannula 04/04 0802 98.4 101 18 140/82 99 Nasal 3.0L Cannula 04/04 0800 91 Nasal 3.0L Cannula 04/04 0117 97.8 130 20 139/72 96 Nasal 3.0L Cannula 04/04 0000 Nasal 3.0L Cannula 04/03 1655 96 Nasal 5.0L Cannula 04/03 1624 99.1 103 22 144/86 95 Nasal 4.0L Cannula 04/03 1600 Nasal 5.0L Cannula hypercapnic and hypoxic respiratory failure secondary to COPD as well as possible medication induced. Discussed with patient as well as patient's family at bedside the care plan. Discussed with canceling machine operator the care plan. pain management consult to address the pain management issue appreciated. Adjusted pain meds as per their recommendations. Patient also has anxiety so added low- dose Ativan. Discussed with patient as well as patient's family the importance of cutting down on pain medications given her severe COPD. Patient's family was also told not to increase her oxygen flow rate and to titrate to keep her oxygen saturation between 88-92%. COPD exacerbation in pt with chroinic hypoxic resp failure on home oxgyen- pt has advanced copd. we will decrease steroids to 40 iv q12h We will also get hospice consult to introduce the hospice services to pt and the family given her advanced copd. Possible Lung cancer- does not want any further workup as of now. Pulmonary following
[2016-04-04 16:28] VITALS: BP 126/82
[2016-04-04 23:41] VITALS: BP 140/70
--- NOTE | 2016-04-05 08:11 | PN- Housestaff ---
ERNESTO GOLDEN,GAIL 04/05/16 0811: Subjective Follow-up For: Acute hypercapnic respiratory failure Subjective: Patient is seen and examined at bedside. Nurse reports 2 episodes of anxiety today in the morning, which were relieved by low-dose lorazepam 0.252. Patient still appears anxious and reports that her breathing status is a little bit better but she still feels anxious and shortness of breath. Discussion regarding hospice and palliative care were initiated yesterday with family and patient. Review of Systems Constitutional: Reports: see HPI. Objective Last 24 Hrs of Vital Signs/I&O Vital Signs Date Time Temp Pulse Resp B/P Pulse O2 O2 Flow FiO2 Ox Delivery Rate 04/05 0830 98.6 92 20 132/70 96 Nasal 3.0L Cannula 04/05 0800 06 Nasal 3.0L Cannula 04/05 0015 104 04/05 0000 95 Nasal 3.0L Cannula 04/04 2341 98.2 121 19 140/70 95 Nasal 3.0L Cannula 04/04 1645 98 Nasal 4.0L Cannula 04/04 1628 98.2 89 18 126/82 95 Nasal 3.0L Cannula 04/04 1600 90 Nasal 5.0L Cannula Intake & Output 04/05 1600 04/05 0800 04/05 0000 Intake Total 750 740 Output Total 300 400 Balance 450 340 Intake, IV 270 20 Intake, Oral 480 720 Number 0 0 Bowel Movements Output, Urine 300 400 Physical Exam General Appearance: Alert, Oriented X3, Cooperative, appears in mild distress and cachectic Skin: No Significant Lesion HEENT: Atraumatic, Mucous Membr. 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 #Acute hypercapnic respiratory failure Patient presented with increased shortness of breath, ABG obtained during admission was significant for elevated CO2 with her hypercapnic respiratory failure findings. She uses chronic opioids for her chronic pain which is managed by pain specialist. She also has anxiety history. This is a very unfortunate combination in a patient with moderate to severe COPD as her chronic opiate use and increased anxiety most likely exacerbated and presented with acute hypercapnic respiratory failure. Plan Continue O2 supplementatioN, currently down to 3 L nasal cannula. Goal is to keep sats around 90%. Continue TRC nebs Continue to follow pulmonology, recommendation Continue Solu-Medrol 40 mg every 12 hours for now Low-dose lorazepam as needed for anxiety #Anxiety disorder Patient reports history of panic attacks and general anxiety. This condition precipitates and worsened her already compromised respiratory condition with COPD. Plan We'll administer low-dose lorazepam as needed for anxiety #Chronic pain Patient is on chronic opiate use and is managed by pain specialist. Unfortunate position of having 2 manage her pain which seems to also exacerbate her respiratory status if is not treated, and the potentiation of worsening respiratory status from the side effects of her pain medication, will for reassessment of pain therapy to manage risk versus benefit. Plan Recommendation from patient's pain doctor appreciated. Continue with the reduced dose of Percocet 5 mg 3 times a day and OxyContin 15 mg twice a day. We refrain from adding any other opioid or sedating medications #Disposition Plan Possible home hospice plan is being worked on. Problem List: 1. Acute bronchitis with chronic obstructive pulmonary disease (COPD) 2. Hypercapnic respiratory failure 3. Anxiety Pain Ratin Pain Location: Back Pain Goal: Pain 4 or less Pain Plan: Continue Percocet and OxyContin low-dose therapy in the setting of hypercapnic respiratory failure Tomorrow's Labs & Rationales: BEP-trending bicarbonate Consulting Request: Consulting Specialty: Pulmonary Disease LIDYA GOLDEN,SHAKIR 04/05/16 1345: Attending MD Review Statement Attending Statement Attending MD Statement: examined this patient, discuss w/resident/PA/HEAD OPERATOR, agreed w/resident/PA/HEAD OPERATOR, discussed with family, reviewed EMR data (avail) Attending Assessment/Plan: Patient is sitting up in bed. She continues to have mild difficulty breathing. She was really appears tachypneic. She has been afebrile and except for tachycardia while signs are stable. She is currently requiring 3 L of oxygen to maintain a saturation of 96%. Chest exam shows overall decreased air entry with the scattered bilateral crepitations. Labs were reviewed and are currently stable. Plan is to continue current medications including Solu-Medrol and will complete a course of azithromycin. Await for patient and family decision to pursue hospice at home.
[2016-04-05 08:30] VITALS: BP 132/70
--- NOTE | 2016-04-05 09:00 | NUR ---
PATIENT HAD AN EPISODE OF ANXIETY. C/O DIFFICULTY BREATHING AND BEGAN PANICKING. NURSE GERTRUDE IN ROOM. VS ASSESSED AND DOCUMENTED IN FLOWSHEET. DR OROZCO AWARE. ATIVAN 0.25MG PO GIVEN. EMOTIONAL SUPPORT OFFERED. FAMILY AT BEDSIDE. WILL FOLOW PLAN OF CARE.
--- NOTE | 2016-04-05 12:13 | PN- Pulmonary ---
Subjective HPI/Critical Care Issues: pt seen and examined still using accessory muscles dyspnea subjectively improved anxiety persists some wheezing no n/v/d/c regaining appetite Objective Current Medications: Current Medications Sig/Osmar Start time Last Medication Dose Route Stop Time Status Admin Albuterol Sulfate 3 ML EVERY 4 HRS/AWAKE 04/02 0800 AC 04/05 INH 0901 Albuterol Sulfate 3 ML Q4H PRN 04/01 2345 AC 04/02 INH 0009 Azithromycin 500 MG DAILY 04/02 1000 AC 04/05 Dextrose/Water 250 ML IV 0945 Budesonide/ 2 PUF BID 04/02 1000 AC 04/05 Formoterol Fumarate INH 0934 Docusate Sodium 100 MG DAILY NEEDED PRN 04/02 1300 AC 04/02 PO 1333 Duloxetine HCl 20 MG DAILY 04/02 1000 AC 04/05 PO 0933 Enoxaparin Sodium 40 MG DAILY 04/02 1000 AC 04/05 SC 0933 Lorazepam 0.25 MG ONCE ONE 04/05 0930 DC 04/05 PO 04/05 0931 0932 Lorazepam 0.25 MG ONE TIME ONE 04/04 2114 DC 04/04 PO 04/04 Lorazepam 0.25 MG 0800 04/04 0800 AC 04/05 PO 04/11 0759 0807 Methylprednisolone 40 MG Q12 04/04 2200 AC 04/05 IV 0938 Mirtazapine 45 MG AT BEDTIME 04/02 2200 AC 04/04 PO 2108 Oxycodone HCl 15 MG Q12 04/02 1000 AC 04/05 PO 0933 Oxycodone/ 1 TAB TID 04/02 1000 AC 04/05 Acetaminophen PO 0933 Polyethylene Glycol 17 GM DAILY PRN 04/02 1300 AC 04/04 PO 0901 Senna/Docusate Sodium 1 TAB BID PRN 04/02 1300 AC 04/04 PO 0901 Tiotropium [place] 1 PUF DAILY 04/02 1000 AC 04/05 INH 0936 Trazodone HCl 100 MG AT BEDTIME 04/02 220 AC 04/04 PO 2108 Vital Signs & I&O Last 24 Hrs of Vitals and I&O: Vital Signs Date Time Temp Pulse Resp B/P Pulse O2 O2 Flow FiO2 Ox Delivery Rate 04/05 0830 98.6 92 20 132/70 96 Nasal 3.0L Cannula 04/05 0800 06 Nasal 3.0L Cannula 04/05 0015 104 04/05 0000 95 Nasal 3.0L Cannula 04/04 2341 98.2 121 19 140/70 95 Nasal 3.0L Cannula 04/04 1645 98 Nasal 4.0L Cannula 04/04 1628 98.2 89 18 126/82 95 Nasal 3.0L Cannula 04/04 1600 90 Nasal 5.0L Cannula Intake & Output 04/05 1600 04/05 0800 04/05 0000 Intake Total 740 Output Total 400 Balance 340 Intake, IV 20 Intake, Oral 720 Number 0 Bowel Movements Output, Urine 400 Exam Other Physical Findings: gen awake, alert, mild-mod respiratory distress heent using accessory muscles cvs s1, s2 lungs diminished bs, prolonged end expiratory phase, mild wheezing abd soft bs+ ext without edema Results Last 24 Hrs of Lab Results: Laboratory Tests 04/05/16 0620: Anion Gap 3 L, Estimated GFR > 60, BUN/Creatinine Ratio 28.0 H 04/04/16 1528: Anion Gap 0 L, Estimated GFR > 60, BUN/Creatinine Ratio 22.0 Impression/Plan Impression/Plan Impression/Plan: Impression 50 year old woman -hypercarbic, hypoxemic respiratory failure, secondary to severe COPD, possible lung ca, bronchospasm vs medication (opiate/benzo) induced Plan -TRC/Nebs -continue solumedrol fow now until goals of care are fully addressed -spo2 goal >88-92% -awaiting decision regarding hospice at home
[2016-04-05 16:46] VITALS: BP 128/86
[2016-04-05 23:51] VITALS: BP 128/74
[2016-04-06 07:59] LABS: ABSOLUTE BASOPHIL COUNT 0 /CUMM (0.0-0.2); ABSOLUTE EOSINOPHIL COUNT 0 /CUMM (0.0-0.7); ABSOLUTE LYMPH COUNT 0.7 /CUMM (1.2-3.4); ABSOLUTE MONOCYTE COUNT 0.6 /CUMM (0.10-0.60); BASOPHIL % 0.1 % (0.0-2.0); EOSINOPHIL % 0 % (0-5); GRANULOCYTE % 83.8 % (42.2-75.2); HEMATOCRIT 38.6 % (37-47); MEAN CORPUSCULAR HGB 32.4 PG (27.0-31.0); MEAN CORPUSCULAR HGB CONC 31.9 G/DL (33.0-37.0); MEAN CORPUSCULAR VOLUME 101.6 FL (81.0-99.0); MEAN PLATELET VOLUME 8.4 FL (7.4-10.4); PLATELET COUNT 352 /CUMM (130-400); RBC DISTRIBUTION WIDTH 14.1 % (11.5-14.5); WHITE BLOOD CELL COUNT 8.4 /CUMM (4.8-10.8)
[2016-04-06 08:18] VITALS: BP 110/76
--- NOTE | 2016-04-06 08:38 | PN- Housestaff ---
ERNESTO GOLDEN,GAIL 04/06/16 0836: Subjective Follow-up For: hypercapnic respiratory failure Subjective: Pt is seen and examine jael lynn. Appears in a less anxious state compared to previous days. She still endorses shortness of breath and some anxiety. Review of Systems Constitutional: Reports: see HPI. Objective Last 24 Hrs of Vital Signs/I&O Vital Signs Date Time Temp Pulse Resp B/P Pulse O2 O2 Flow FiO2 Ox Delivery Rate 04/06 0818 98.1 98 20 110/76 99 Nasal 3.0L Cannula 04/06 0000 Nasal 3.0L Cannula 04/05 2351 98.4 103 21 128/74 95 Nasal 3.0L Cannula 04/05 1647 97 Nasal 3.0L Cannula 04/05 1646 97.8 90 26 128/86 94 Room Air 04/05 1600 Nasal 3.0L Cannula Intake & Output 04/06 1600 04/06 0800 04/06 0000 Intake Total 240 600 Output Total Balance 240 600 Intake, Oral 240 600 Physical Exam General Appearance: Alert, Oriented X3, Cooperative Skin: No Significant Lesion Lymphatic: Cervical nl Cardiovascular: Regular Rate, Normal S1, Normal S2 Lungs: rhonchi and wheezees b/l Abdomen: Normal Bowel Sounds, Soft, No Tenderness Extremities: No Clubbing, No Cyanosis, No Edema, Normal Pulses, No Tenderness/ Swelling Assessment/Plan Assessment: This is 50 yo F with h/o chronic hypoxic respiratory failure, 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 #Acute hypercapnic respiratory failure Patient presented with increased shortness of breath, ABG obtained during admission was significant for elevated CO2 with her hypercapnic respiratory failure findings. She uses chronic opioids for her chronic pain which is managed by pain specialist. She also has anxiety history. This is a very unfortunate combination in a patient with moderate to severe COPD as her chronic opiate use and increased anxiety most likely exacerbated and presented with acute hypercapnic respiratory failure. Plan Continue O2 supplementation, currently down to 3 L nasal cannula. Goal is to keep sats around 90%. Continue TRC nebs Continue to follow pulmonology, recommendation Continue Solu-Medrol 40 mg every 12 hours for now Low-dose lorazepam as needed for anxiety #Anxiety disorder Patient reports history of panic attacks and general anxiety. This condition precipitates and worsened her already compromised respiratory condition with COPD. Plan We'll administer low-dose lorazepam as needed for anxiety #Chronic pain Patient is on chronic opiate use and is managed by pain specialist. Unfortunate position of having 2 manage her pain which seems to also exacerbate her respiratory status if is not treated, and the potentiation of worsening respiratory status from the side effects of her pain medication, will for reassessment of pain therapy to manage risk versus benefit. Plan Recommendation from patient's pain doctor appreciated. Continue with the reduced dose of Percocet 5 mg 3 times a day and OxyContin 15 mg twice a day. We refrain from adding any other opioid or sedating medications #Disposition Plan Possible home hospice plan is being worked on. Problem List: 1. Hypercapnic respiratory failure 2. Anxiety Pain Ratin Pain Location: back Pain Goal: Pain 4 or less Pain Plan: percocet and oxycontin Tomorrow's Labs & Rationales: BEP CBC Consulting Request: Consulting Specialty: Pulmonary Disease LIDYA GOLDEN,[facility] 04/06/16 0955: Attending MD Review Statement Attending Statement Attending Assessment/Plan: Attending MD Statement: examined this patient, discuss w/resident/PA/MIXER OPERATOR HOT METAL, agreed w/resident/PA/MIXER OPERATOR HOT METAL, discussed with family, reviewed EMR data (avail) Attending Assessment/Plan: Patient is sitting up in bed. She continues to have mild difficulty breathing but overall feels better than yesterday. She appears less tachypneic. She has been afebrile and except for occasional tachycardia while signs are stable. She is currently requiring 3 L of oxygen to maintain a saturation of 95%. Chest exam shows overall decreased air entry with the scattered bilateral crepitations. Labs were reviewed and are currently stable. WBC count is 8.4 and hematocrit is 38.6. Chemistry labs show normal sodium potassium and creatinine. Plan is to continue current medications Consider switching Solu-Medrol to oral prednisone taper Complete azithromycin today Await for patient and family decision to pursue hospice at home.
--- NOTE | 2016-04-06 10:32 | PN- Pulmonary ---
Subjective HPI/Critical Care Issues: pt seen and examined still with labored breathing but improved since 2 days anxiety persists and has some relief with xanax awaiting hospice evaluation Objective Current Medications: Current Medications Sig/Osmar Start time Last Medication Dose Route Stop Time Status Admin Albuterol Sulfate 3 ML EVERY 4 HRS/AWAKE 04/02 0800 AC 04/06 INH 0839 Albuterol Sulfate 3 ML Q4H PRN 04/01 2345 AC 04/02 INH 0009 Azithromycin 500 MG DAILY 04/02 1000 DC 04/05 Dextrose/Water 250 ML IV 0945 Budesonide/ 2 PUF BID 04/02 1000 AC 04/06 Formoterol Fumarate INH 0917 Docusate Sodium 100 MG DAILY NEEDED PRN 04/02 1300 AC 04/02 PO 1333 Duloxetine HCl 20 MG DAILY 04/02 1000 AC 04/06 PO 0916 Enoxaparin Sodium 40 MG DAILY 04/02 1000 AC 04/06 SC 0916 Lorazepam 0.25 MG ONCE ONE 04/05 1915 DC 04/05 PO 04/05 1916 1906 Lorazepam 0.25 MG 0800 04/04 0800 AC 04/06 PO 04/11 0759 0808 Methylprednisolone 40 MG Q12 04/04 2200 AC 04/06 IV 1008 Mirtazapine 45 MG AT BEDTIME 04/02 2200 AC 04/05 PO 2110 Oxycodone HCl 15 MG Q12 04/02 1000 AC 04/06 PO 0916 Oxycodone/ 1 TAB TID 04/02 1000 AC 04/06 Acetaminophen PO 0916 Patient Medication 1 ED .STK-MED ONE 04/05 1335 PR Teaching ED 04/05 1336 Polyethylene Glycol 17 GM DAILY PRN 04/02 1300 AC 04/04 PO 0901 Senna/Docusate Sodium 1 TAB BID PRN 04/02 1300 AC 04/04 PO 0901 Tiotropium [place] 1 PUF DAILY 04/02 1000 AC 04/06 INH 0917 Trazodone HCl 100 MG AT BEDTIME 04/02 2200 AC 04/05 PO 2109 Vital Signs & I&O Last 24 Hrs of Vitals and I&O: Vital Signs Date Time Temp Pulse Resp B/P Pulse O2 O2 Flow FiO2 Ox Delivery Rate 04/06 0842 95 Nasal 3.0L Cannula 04/06 0818 98.1 98 20 110/76 99 Nasal 3.0L Cannula 04/06 0800 93 Nasal 3.0L Cannula 04/06 0000 Nasal 3.0L Cannula 04/05 2351 98.4 103 21 128/74 95 Nasal 3.0L Cannula 04/05 1647 97 Nasal 3.0L Cannula 04/05 1646 97.8 90 26 128/86 94 Room Air 04/05 1600 Nasal 3.0L Cannula Intake & Output 04/06 1600 04/06 0800 04/06 0000 Intake Total 240 600 Output Total Balance 240 600 Intake, Oral 240 600 Exam Other Physical Findings: gen awake, alert, mild respiratory distress heent using accessory muscles cvs s1, s2 lungs diminished bs, prolonged end expiratory phase, mild wheezing abd soft bs+ ext without edema Results Last 24 Hrs of Lab Results: Laboratory Tests 04/06/16 0630: Anion Gap 2 L, Estimated GFR > 60, BUN/Creatinine Ratio 28.0 H, CBC w Diff NO MAN DIFF REQ, RBC 3.80 L, MCV 101.6 H, MCH 32.4 H, RDW 14.1, MPV 8.4, Gran % 83.8 H, Lymphocytes % 8.5 L, Monocytes % 7.6, Eosinophils % 0, Basophils % 0.1 , Absolute Granulocytes 7.0 H, Absolute Lymphocytes 0.7 L, Absolute Monocytes 0.6, Absolute Eosinophils 0, Absolute Basophils 0, PUBS MCHC 31.9 L Impression/Plan Impression/Plan Impression/Plan: Impression 50 year old woman -hypercarbic, hypoxemic respiratory failure, secondary to severe COPD, possible lung ca, bronchospasm vs medication (opiate/benzo) induced Plan -TRC/Nebs -continue solumedrol fow now until goals of care are fully addressed -spo2 goal >88-92% -awaiting decision regarding hospice at home
[2016-04-06 16:09] VITALS: BP 124/64
--- NOTE | 2016-04-06 18:51 | NUR ---
ALERT AND ORIENTED X 3. VITAL SIGNS STABLE. DENIES CHEST PAIN. + PULSES ON 3L OXYGEN VIA NASAL CANNULA. NO DISCOMFORT NOTED. ASSIST X 1 TO BEDSIDE COMMODE. MEDICATION GIVEN FOR ANXIETY. FAMILY AT BEDSIDE. WILL CONTINUE TO MONITOR
[2016-04-06 23:50] VITALS: BP 128/62
[2016-04-07 08:25] VITALS: BP 122/70
--- NOTE | 2016-04-07 10:42 | PN- Pulmonary ---
Subjective HPI/Critical Care Issues: pt seen and examined agreeable to hospice respiratory status stable back pain persists anxiety addressed with xanax Objective Current Medications: Current Medications Sig/Osmar Start time Last Medication Dose Route Stop Time Status Admin Albuterol Sulfate 3 ML EVERY 4 HRS/AWAKE 04/02 0800 AC 04/07 INH 0741 Albuterol Sulfate 3 ML Q4H PRN 04/01 2345 AC 04/02 INH 0009 Budesonide/ 2 PUF BID 04/02 1000 AC 04/07 Formoterol Fumarate INH 0905 Docusate Sodium 100 MG DAILY NEEDED PRN 04/02 1300 AC 04/02 PO 1333 Duloxetine HCl 20 MG DAILY 04/02 1000 AC 04/07 PO 0902 Enoxaparin Sodium 40 MG DAILY 04/02 1000 AC 04/07 SC 0905 Lorazepam 0.25 MG Q8P PRN 04/06 1100 AC 04/07 PO 04/13 1043 0844 Lorazepam 0.25 MG 0800 04/04 0800 DC 04/06 PO 04/11 0759 0808 Methylprednisolone 40 MG Q12 04/04 2200 AC 04/07 IV 0908 Mirtazapine 45 MG AT BEDTIME 04/02 2200 AC 04/06 PO 2117 Oxycodone HCl 15 MG Q12 04/02 1000 AC 04/07 PO 0904 Oxycodone/ 1 TAB TID 04/02 1000 AC 04/07 Acetaminophen PO 0904 Polyethylene Glycol 17 GM DAILY PRN 04/02 1300 AC 04/04 PO 0901 Senna/Docusate Sodium 1 TAB BID PRN 04/02 1300 AC 04/04 PO 0901 Tiotropium [place] 1 PUF DAILY 04/02 1000 AC 04/07 INH 0904 Trazodone HCl 100 MG AT BEDTIME 04/02 2200 AC 04/06 PO 2118 Vital Signs & I&O Last 24 Hrs of Vitals and I&O: Vital Signs Date Time Temp Pulse Resp B/P Pulse O2 O2 Flow FiO2 Ox Delivery Rate 04/07 0825 98.1 92 20 122/70 94 Nasal 3.0L Cannula 04/07 0743 94 Nasal 3.0L Cannula 04/07 0000 Nasal 3.0L Cannula 04/06 2350 98.1 109 20 128/62 94 04/06 1705 97 Nasal 3.0L Cannula 04/06 1609 97.9 98 20 124/64 94 Nasal 3.0L Cannula 04/06 1600 94 Nasal 3.0L Cannula Intake & Output 04/07 1600 04/07 0800 04/07 0000 Intake Total 400 Output Total 500 Balance -100 Intake, Oral 400 Output, Urine 500 Exam Other Physical Findings: gen awake, alert, mild respiratory distress heent using accessory muscles cvs s1, s2 lungs diminished bs, prolonged end expiratory phase, mild wheezing abd soft bs+ ext without edema Impression/Plan Impression/Plan Impression/Plan: Impression 50 year old woman -hypercarbic, hypoxemic respiratory failure, secondary to severe COPD, possible lung ca, bronchospasm vs medication (opiate/benzo) induced -chronic back pain Plan -TRC/Nebs -dc solumedrol -prednisone po 60x3, 50x3, 40x3, 30x3, 20x3, 10x3 -spo2 goal >88-92% - plan for hospice at home
[2016-04-07] MEDS ORDERED: MORPHINE S20 MG/1 ML SL (12:00)
[2016-04-07] MEDS ORDERED: TRANSDERM-SCOP1 EACH TOP (12:00)
[2016-04-07] MEDS ORDERED: LORAZEPAM I2 MG/1 ML SL (12:04)
[2016-04-07] MEDS ORDERED: OXYCODONE HCL5 M1 PO (12:04)
[2016-04-07] MEDS ORDERED: DOCUSATE SODIU100 M3 PO (12:09)
[2016-04-07] MEDS ORDERED: SENNA PLUS TAB1 EACH PO (12:09)
[2016-04-07] MEDS ORDERED: CIPRO500 M1 PO (12:09)
[2016-04-07] MEDS ORDERED: MIRALAX119 GM PO (12:09)
--- NOTE | 2016-04-07 12:18 | Patient Discharge Instructions ---
Discharge Instructions General Discharge Information You were seen/treated for: Acute hypercapnic respiratory failure Special Instructions: Please follow up with your hospice team Please continue taking the antibiotic prescribed Diet Continue normal diet: Yes Acute Coronary Syndrome Inclusion Criteria At DC or during hospital stay patient has or had the following: ACS DIAGNOSIS No Discharge Core Measures Meds if any: Prescribed or Continued at Discharge Meds if any: NOT Prescribed or Continued at Discharge Congestive Heart Failure Inclusion Criteria At DC or during hospital stay patient has or had the following: CHF DIAGNOSIS No Discharge Core Measures Meds if any: Prescribed or Continued at Discharge Meds if any: NOT Prescribed or Continued at Discharge Cerebrovascular accident Inclusion Criteria At DC or during hospital stay patient has or had the following: CVA/TIA Diagnosis No Discharge Core Measures Meds if any: Prescribed or Continued at Discharge Meds if any: NOT Prescribed or Continued at Discharge Venous thromboembolism Inclusion Criteria VTE Diagnosis No VTE Type NONE VTE Confirmed by (Test) NONE Discharge Core Measures - Per Current guidelines, there needs to be overlap - treatment for the first 5 days of Warfarin therapy. - If discharged on Warfarin prior to 5 days of - overlap therapy, the patient will need to be - assessed for post discharge needs including - *Post discharge parental anticoagulation - *Warfarin and/or parental anticoagulation education - *Follow up date to check INR post discharge At least 5 days overlap therapy as Inpatient No Meds if any: Prescribed or Continued at Discharge Note: Overlap Therapy is Warfarin and Anticoagulant Meds if any: NOT Prescribed or Continued at Discharge
[2016-04-07] MEDS ORDERED: PREDNISONE10 M2 PO (13:03)
--- NOTE | 2016-04-07 15:09 | PN- Housestaff ---
Subjective Follow-up For: Acute hypercapnic respiratory failure Subjective: She was seen and examined at bedside. Patient still appears in respiratory distress, unchanged from previous day. she still endorses anxiety. Patient inquires about discharge disposition and is informed that most likely she'll be leaving today with home hospice plans already finalized. Review of Systems Constitutional: Reports: see HPI. Objective Last 24 Hrs of Vital Signs/I&O Vital Signs Date Time Temp Pulse Resp B/P Pulse O2 O2 Flow FiO2 Ox Delivery Rate 04/07 0825 98.1 92 20 122/70 94 Nasal 3.0L Cannula 04/07 0800 96 Nasal 3.0L Cannula 04/07 0743 94 Nasal 3.0L Cannula 04/07 0000 Nasal 3.0L Cannula 04/06 2350 98.1 109 20 128/62 94 Intake & Output 04/07 1600 04/07 0800 04/07 0000 Intake Total 480 400 Output Total 400 500 Balance 80 -100 Intake, Oral 480 400 Number 1 Bowel Movements Output, Urine 400 500 Physical Exam General Appearance: Alert, Oriented X3, Cooperative, Moderate Distress Cardiovascular: Regular Rate, Normal S1, Normal S2 Lungs: bilateral rhonchi and wheezing Abdomen: Normal Bowel Sounds, Soft, No Tenderness, No Hepatospenomegaly Extremities: No Clubbing, No Cyanosis, No Edema, Normal Pulses, No Tenderness/ Swelling Assessment/Plan Assessment: This is 50 yo F with h/o chronic hypoxic respiratory failure, 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 #Disposition She is being discharged to home hospice. Medication finalized in conjunction with hospice agent is given prescription for morphine lorazepam and scopolamine as needed. Patient is also being discharged with a prednisone taper after which she will continue taking her baseline 10 mg prednisone. #Bacteremia of gram-negative rods was noted. Patient was therefore given a 10 day antibiotic course of ciprofloxacin. End-stage COPD She will also continue to take her nebulizer respiratory meds/ Problem List: 1. Acute bronchitis with chronic obstructive pulmonary disease (COPD) 2. Hypercapnic respiratory failure 3. Anxiety Pain Ratin Pain Location: Back pain Pain Goal: Pain 4 or less Pain Plan: Oxycodone and OxyContin Tomorrow's Labs & Rationales: None patient is being discharged Consulting Request: Consulting Specialty: Pulmonary Disease
--- NOTE | 2016-04-07 16:24 | PN- Att Addend ---
Attending MD Review Statement Attending Statement Attending MD Statement: examined this patient, discuss w/resident/PA/[employer], agreed w/resident/PA/[employer], reviewed EMR data (avail), discussed w/nursing, discussed w/ case mgmt Attending Assessment/Plan: hypercapnic and hypoxic respiratory failure secondary to COPD as well as possible medication induced. Discussed with patient as well as patient's family at bedside the care plan. Discussed with education and training coordinator the care plan. pain management consult to address the pain management issue appreciated. Adjusted pain meds as per their recommendations. Patient also has anxiety so added low- dose Ativan. Discussed with patient as well as patient's family the importance of cutting down on pain medications given her severe COPD. Patient's family was also told not to increase her oxygen flow rate and to titrate to keep her oxygen saturation between 88-92%. COPD exacerbation in pt with chroinic hypoxic resp failure on home oxgyen- pt has advanced copd. will be discharged home on oral prednisone taper. Patient was also found to have blood cultures which are growing gram-negative rods. And is being discharged home on by mouth Cipro 500 mg twice a day for 10 days. Discussed with education and training coordinator the care plan. Patient will be discharged home today on home hospice. Discussed with the patient the care plan
== END 2016-04-07 14:55 | disposition home or self-care (01) | DRG 189 ==
LOC: CANRESERV → ENRESERVTM → ENRESERVDT → ERH 20:49 → ENPENDDIS 22:31 → 2NB 22:31 → ERHI 22:31 → 2NB 04-02 00:14
PROVIDERS: Emergency Medicine; Internal Medicine; Student in an Organized Health Care Education/Training Program; ADMIT Student in an Organized Health Care Education/Training Program
PROC: 5A09357 Assistance with Respiratory Ventilation, Less than 24 Consecutive Hours, Continuous Positive Airway Pressure (ICD-10-PCS; principal; 2016-04-01)
DX: J96.21 Acute and chronic respiratory failure with hypoxia (principal); R64 Cachexia; R78.81 Bacteremia; J44.0 Chronic obstructive pulmonary disease with (acute) lower respiratory infection; E87.2 Acidosis; C34.90 Malignant neoplasm of unspecified part of unspecified bronchus or lung; J44.1 Chronic obstructive pulmonary disease with (acute) exacerbation; J96.22 Acute and chronic respiratory failure with hypercapnia; J20.9 Acute bronchitis, unspecified; F32.9 Major depressive disorder, single episode, unspecified; F41.9 Anxiety disorder, unspecified; F17.200 Nicotine dependence, unspecified, uncomplicated; G89.29 Other chronic pain; Z68.20 Body mass index [BMI] 20.0-20.9, adult; Z79.891 Long term (current) use of opiate analgesic
CPT/HCPCS: 2NBP; ERO; 36415; 80307; 81001; 82436; 87040; 87070; 87086; 87804; 87804-59; 93005; 93010; 96365; 96375; 96376; 99291; J0456; J0696; J1650; J2060; J2310; J2920; J2930; J7060

== ENCOUNTER 2016-06-24 17:44 | Inpatient (IN) | payer OTHER ==
[~2016-06-24] VITALS: Ht 157.5 cm; Wt 45.4 kg
[~2016-06-24 17:44] MED LIST changes: +ALENDRONATE SOD35 M2 PO; +CIPRO500 M1 PO; +DOCUSATE SODIU100 M3 PO; +LORAZEPAM I2 MG/1 ML SL; +MIRALAX119 GM PO; +MORPHINE S20 MG/1 ML SL; +OXYCODONE HCL5 M1 PO; +OXYCONTIN15 M1 PO; +PERCOCET 7.5-31 EACH PO; +PREDNISONE10 M2 PO; +SENNA PLUS TAB1 EACH PO; +TRANSDERM-SCOP1 EACH TOP
--- NOTE | 2016-06-24 17:56 | ED DYSPNEA/ASTHMA COMPLAINT ---
History of Present Illness General Chief Complaint: General Adult Stated Complaint: SOB,CONGESTION,ACOSTA Source: patient, family, old records Exam Limitations: clinical condition Vital Signs & Intake/Output Vital Signs & Intake/Output Vital Signs Date Time Temp Pulse Resp B/P B/P Pulse O2 O2 Flow FiO2 Mean Ox Delivery Rate 06/25 0830 95 Nasal 5.0L Cannula 06/25 0823 114 93 06/25 0658 96.7 102 22 112/78 92 Nasal 4.0L Cannula 06/25 0503 115 92 06/25 0502 87 Nasal 4.0L Cannula 06/25 0420 114 93 06/25 0310 94 96 06/25 0006 77 95 06/25 0000 94 BIPAP 06/24 2305 97.5 93 24 115/78 94 BIPAP 06/24 2230 BIPAP 35% 06/24 2114 97.7 96 24 120/78 96 BIPAP 06/24 2013 99 93 06/24 1939 97.6 97 24 102/67 93 BIPAP 06/24 1845 99 98 06/24 1844 97 BIPAP 35% 06/24 1842 Nasal 6.0L Cannula 06/24 1828 97.7 06/24 1811 94 40 135/76 97 Nasal 5.0L Cannula ED Intake and Output 06/25 0000 06/24 1200 Intake Total Output Total Balance Patient 99 lb 15.99 oz Weight Weight Estimated Measurement Method Allergies Coded Allergies: Penicillins (RASH 06/24/16) Reconcile Medications Albuterol Sulfate (Ventolin Hfa) 18 GM HFA.AER.AD 2 PUF INH Q4H PRN COPD ( Reported) Budesonide/Formoterol Fumarate (Symbicort 160-4.5 Mcg Inhaler) 10.2 GM HFA.AER.AD 2 PUF INH BID COPD (Reported) Duloxetine HCl 20 MG CAPSULE.DR 2 TAB PO BID DEPRESSION (Reported) Lorazepam (Lorazepam Intensol) 2 MG/ML ORAL.CONC 0.5-1.0 MG SL Q4 PRN ANXIETY Mirtazapine 45 MG TABLET 1 TAB PO QHS MENTAL HEALTH (Reported) Oxycodone HCl (Oxycontin) 30 MG TAB.ER.12H 1 TAB PO BID PAIN (Reported) Oxycodone HCl 5 MG TABLET 1-2 TAB PO Q4 PRN PAIN Prednisone 10 MG TABLET 1 TAB PO AD COPD On Take 04/08-04/10 60 MG 04/11-04/13 50 MG 04/14-04/16 40 MG 04/17-04/19 30 MG 04/20-04/22 20 MG 04/23-04/25 10 MG Then Stop Tiotropium [place] (Spiriva) 18 MCG CAP.W.DEV 1 CAP INH DAILY COPD (Reported) Trazodone HCl 100 MG TABLET 1 TAB PO QHS SLEEP (Reported) Triage Nurses Notes Reviewed? yes HPI: Patient is a 50-year-old female brought in by her family for evaluation of severe dyspnea. Symptoms onset at 5 PM yesterday evening. Symptoms gradually worsening. Dyspnea is currently severe. Patient attempted to use her nebulizer twice at home today with no improvement. Associated severe headache which family reports patient routinely gets when she has this severe dyspnea. Positive sick contacts at home. Patient denies chest pain, lower extremity pain , lower extremity edema. (DAVID JIMENEZ) Past History Travel History Traveled to [place] past 21 day No Medical History Any Pertinent Medical History? see below for history Neurological: NONE EENT: NONE Cardiovascular: NONE Respiratory: COPD, pneumonia, 5L NC DEPENDENT RESPIRATORY FAILURE LUNG CA Gastrointestinal: NONE Hepatic: NONE Renal: NONE Musculoskeletal: NONE Psychiatric: anxiety, depression Endocrine: NONE Blood Disorders: anemia Cancer(s): lung cancer STRAWHAT SIZER/Reproductive: NONE History of MRSA: No History of VRE: No History of CDIFF: No Influenza Vaccine: 11/13/15 Surgical History Surgical History: hysterectomy Psychosocial History Who do you live with Spouse Services at Home None What is your primary language Iraqi Family History Family History, If Any: MOTHER (cad). SISTER (breast cancer, diabetes, cad). BROTHER (diabetes, cad). Hx Contributory? No (DAVID JIMENEZ) Review of Systems Review of Systems Constitutional: Reports: malaise. Denies: chills, fever. EENTM: Reports: nasal congestion. Respiratory: Reports: cough, short of breath, sputum production, wheezing. Cardiovascular: Denies: chest pain, peripheral edema, syncope. GI: Denies: abdominal pain, vomiting. Musculoskeletal: Reports: back pain (chronic). Skin: Reports: no symptoms. Neurological/Psychological: Reports: headache. Hematologic/Endocrine: Denies: bruising, bleeding. Immunologic/Allergic: Denies: splenectomy. (DAVID JIMENEZ) Physical Exam Physical Exam General Appearance: alert, awake, severe distress Head: atraumatic, normal appearance Eyes: Bilateral: normal appearance, PERRL, EOMI. Ears, Nose, Throat: normal pharynx, normal ENT inspection, hearing grossly normal Neck: normal inspection, supple, full range of motion Respiratory: respiratory distress, diffuse inspiratory and expiratory wheezing Cardiovascular: tachycardia, regular rhythm Peripheral Pulses: 2+ dorsalis pedis (R), 2+ dorsalis pedis (L) Gastrointestinal: soft, non-tender Extremities: normal inspection, normal capillary refill, normal range of motion, no edema Neurologic/Psych: awake, alert Skin: intact, normal color, warm/dry Lymphatic: no anterior cervical liliana Core Measures ACS in differential dx? Yes ASA ordered for poss ACS? No-ACS ruled out Severe Sepsis Present: No Septic Shock Present: No (DAVID JIMENEZ) Progress Differential Diagnosis: asthma, bronchitis, COPD, pulmonary embolism, pneumonia, unstable angina Plan of Care: Orders Procedure Date/time Status Regular Diet 06/25 B Active ARTERIAL BLOOD GAS (GEN) 06/25 0600 Complete CBC WITHOUT DIFFERENTIAL 06/25 0600 Complete BASIC ELECTROLYTES PLUS BUN&CR 06/25 0600 Complete OXYGEN SETUP (GEN) 06/25 UNK Complete PHARMACY COMMUNICATION FORM 06/25 UNK Active MISSING MEDICATION FORM 06/25 UNK Active Vital Signs 06/24 2343 Active Teach/Educate 06/24 2343 Active Pain Treatment and Response 06/24 2343 Active Nutritional Intake, Monitor 06/24 2343 Active Isolation 06/24 2343 Active Intake & Output 06/24 2343 Active Patient Care Conference 06/24 2343 Active Activity/Ambulation 06/24 2343 Active RT: Evaluation 06/24 2228 Active Code Status 06/24 2116 Active Saline Lock 06/25 2035 Active Activity/Ambulation 06/25 2035 Active Code Status 06/25 2035 Complete Pathway - chart 06/24 2032 Active LOWER RESPIRATORY CULTURE 06/24 2032 Active Patient Data 06/24 2030 Active Transfer patient to 06/24 2028 Active URINE DRUGS OF ABUSE 06/24 2028 Complete URINALYSIS 06/24 2028 Complete ARTERIAL BLOOD GAS (GEN) 06/24 2025 Complete Patient Data 06/24 1927 Active Admit to inpatient 06/24 1900 Active BIPAP 06/24 1800 Complete ARTERIAL BLOOD GAS (GEN) 06/24 1755 Complete BLOOD CULTURE 06/24 1755 Active TROPONIN LEVEL 06/24 1755 Complete LACTIC ACID 06/24 175 Complete COMPREHENSIVE METABOLIC PANEL 06/24 1755 Complete CBC WITHOUT DIFFERENTIAL 06/24 1755 Complete EKG 06/24 1746 Active TRC EVALUATION (GEN) 06/24 UNK Complete THERAPIST ORDERS 06/24 UNK Complete VTE Mechanical Prophylaxis 06/24 UNK Active Vital Signs 06/24 UNK Active Intake & Output 06/24 UNK Active Current Medications Sig/Osmar Start time Last Medication Dose Stop Time Status Admin Mirtazapine 45 MG QPM 06/25 2200 AC (Remeron) Azithromycin 500 MG DAILY 06/25 1000 AC (Zithromax) Sodium Chloride 250 ML (Normal Saline 0.9%) Ceftriaxone Sodium 1,000 MG ONCE ONE 06/25 1000 AC (Rocephin) 06/25 1001 Duloxetine HCl 40 MG BID 06/25 1000 AC 06/25 (Cymbalta) 0848 Enoxaparin Sodium 40 MG DAILY 06/25 1000 AC (Lovenox) Lorazepam 0.5 MG Q4 PRN 06/25 1000 AC 06/25 (Ativan) 07/02 0429 0847 Methylprednisolone 40 MG Q12 06/25 1000 AC 06/25 (Solumedrol) 0849 Oxycodone HCl 30 MG Q12 06/25 1000 AC (OxyCONTIN) Albuterol Sulfate 3 ML EVERY 4 HRS/AWAKE 06/25 0800 AC 06/25 (Proventil) 0829 Lorazepam 0.5 MG ONE ONE 06/25 0515 CAN (Ativan) 06/25 0516 Oxycodone HCl 5 MG Q4 PRN 06/25 0445 AC (Roxicodone) Oxycodone HCl 10 MG Q4 PRN 06/25 0445 AC 06/25 (Roxicodone) 0848 Sodium Chloride 1,000 ML Q13H 06/25 0415 AC 06/25 (Normal Saline 0.9%) 0551 Budesonide/ 2 PUF BID 06/25 0354 AC 06/25 Formoterol Fumarate 0853 (Symbicort) Trazodone HCl 100 MG AT BEDTIME 06/25 0230 AC 06/25 (Desyrel) 0306 Laboratory Tests 06/25/16 0650: Anion Gap 9, Estimated GFR > 60, BUN/Creatinine Ratio 30.0 H, CBC w Diff NO MAN DIFF REQ, RBC 3.92 L, MCV 94.8, MCH 30.7, RDW 13.8, MPV 8.7, Gran % 82.2 H, Lymphocytes % 6.7 L, Monocytes % 11.1 H, Eosinophils % 0, Basophils % 0 L, Absolute Granulocytes 5.8, Absolute Lymphocytes 0.5 L, Absolute Monocytes 0.8 H, Absolute Eosinophils 0, Absolute Basophils 0, PUBS MCHC 32.4 L 06/25/165: pH 7.37, pCO2 59 H, pO2 71 L, HCO3 34 H, ABG O2 Sat (Measured) 94.0 L, P-50 (Temp Corrected) Y, Carboxyhemoglobin 0.4 L, O2 Concentration % 35%, Temperature 98.0, Respiration Rate 24, O2 Delivery Method VISION, Vent Mode ST, Expiratory Pressure 6, Inspiratory Pressure 16, Phlebotomy Draw Site RIGHT RADIAL 06/25/16 0410: Urine Opiates Screen 2280.00 H, Methadone Screen 59, Barbiturate Screen < 60, Ur Phencyclidine Scrn < 6.00, Amphetamines Screen < 100, U Benzodiazepines Scrn < 85, Urine Cocaine Screen < 50, Urine Cannabis Screen < 5.00, Urinalysis LIGHT H, Urine Color YEL, Urine Clarity CLEAR, Urine pH 6.5, Ur Specific [place] 1.015 , Urine Protein NEG, Urine Ketones >=80, Urine Nitrite NEG, Urine Bilirubin NEG, Urine Urobilinogen 0.2, Ur Leukocyte Esterase SMALL H, Ur Microscopic SEDIMENT EXAMINED, Urine RBC 1-3, Urine WBC 1-3 H, Ur Epithelial Cells FEW, Urine Bacteria MOD H, Urine Mucus RARE, Urine Hemoglobin TRACE-INTACT, Urine Glucose NEG 06/24/162054: Lactic Acid Cancelled 06/24/162049: pH 7.35, pCO2 57 H, pO2 82, HCO3 31 H, ABG O2 Sat (Measured) 96.0, Carboxyhemoglobin 0.5 L, O2 Concentration % .35, Respiration Rate 24, O2 Delivery Method BIPAP, Vent Mode ST, Expiratory Pressure 6, Inspiratory Pressure 16, Phlebotomy Draw Site RIGHT RADIAL 06/24/16 1800: pH 7.25 *L, pCO2 77 *H, pO2 90, HCO3 33 H, ABG O2 Sat (Measured) 95.0 L, Carboxyhemoglobin 0.6 L, O2 Concentration % 6L, O2 Delivery Method NEB, Anion Gap 11, Estimated GFR > 60, BUN/Creatinine Ratio 20.0, Glucose 99, Lactic Acid 1.1, Calcium 9.4, Total Bilirubin 0.5, AST 31, ALT 48, Alkaline Phosphatase 83, Troponin I < 0.01, Total Protein 7.2, Albumin 4.2, Globulin 3.0, Albumin/ Globulin Ratio 1.4, CBC w Diff NO MAN DIFF REQ, RBC 4.39, MCV 96.0, MCH 30.9, RDW 13.8, MPV 8.2, Gran % 92.6 H, Lymphocytes % 3.9 L, Monocytes % 3.4, Eosinophils % 0.1, Basophils % 0 L, Absolute Granulocytes 9.8 H, Absolute Lymphocytes 0.4 L, Absolute Monocytes 0.4, Absolute Eosinophils 0, Absolute Basophils 0, PUBS MCHC 32.2 L, Phlebotomy Draw Site RIGHT RADIAL Microbiology 06/24 2032 LOWER RESP: Respiratory Culture - COLB 06/24 2032 LOWER RESP: Gram Stain - COLB 06/24 1811 BLOOD: Blood Culture - RECD 06/24 1800 BLOOD: Blood Culture - RECD 06/24/2016 6:09:12 PM: Patient discussed with and seen by Dr. Julien. Patient is on hospice. Patient and family requesting interventions to aid patient's breathing including labs and chest x-ray. BiPap is okay. Patient is DNR/DNI. 06/24/2016 6:38:34 PM: central supply manager contacted [facility]. Patient is cancer care, not hospice[facility] Dr. Julien discussed patient with Dr. Serrano for admission (TING SOLIS,DAVID) Diagnostic Imaging: Viewed by Me: Radiology Read. Discussed w/RAD: Radiology Read. CXR Impression: PATIENT: MALIHA DUARTE PRESENT AGE: 50 PATIENT ACCOUNT NO: [id number] : 64 LOCATION: [facility] ORDERING PHYSICIAN: DAVID SOLIS SERVICE DATE: 06/24/160883 EXAM TYPE: RAD - XRY- PORTABLE CHEST XRAY EXAMINATION: XR PORTABLE CHEST CLINICAL INFORMATION: Severe dyspnea. COMPARISON: CXR from 04/01/2016 TECHNIQUE: Portable AP view of the chest was obtained. FINDINGS: Lungs are hyperexpanded and hyperlucent from severe emphysema. The bronchial mejia remain thickened in both lungs. This could be a manifestation of chronic bronchitis. A stable calcified granuloma seen in the right upper lobe. In this region, there is a linear opacity of apparent scarring, unchanged compared to 04/01/2016. The hazy opacity projecting lateral to the lower cardiac border might be related to the overlying breast tissue. However, unable to exclude atelectasis or groundglass infiltrate in the lingula. Follow-up PA and lateral chest radiographs may be helpful. Cardiac silhouette is normal in size. The visualized bones are unremarkable. IMPRESSION: 1. Severe pulmonary emphysema and chronic bronchial wall thickening in both lungs. 2. Possible infiltrate within the lingula and/or left lower lobe. Follow-up with PA and lateral chest radiographs may be helpful to confirm presence of new disease in this region. DICTATED BY: COLLINS BREWER MD DATE/TIME DICTATED:06/24/161841 MILLINER HELPER:ROBERTH DATE/TIME TRANSCRIBED:06/24/161841 CONFIDENTIAL, DO NOT COPY WITHOUT APPROPRIATE AUTHORIZATION. <Electronically signed in Other Vendor System> SIGNED BY: COLLINS BREWER MD 06/24/16 032 Initial ED EKG: normal axis, normal intervals, normal QRS complex, nonspecific ST T wave chg Prior EKG: changed Rhythm Strip: sinus tachycardia, PVC (DAVID JIMENEZ) Departure Departure Time of Disposition: 1925 Clinical Impression Primary Impression: Hypercapnic respiratory failure Qualifiers: Chronicity: acute on chronic Qualified Code: J96.22 - Acute and chronic respiratory failure with hypercapnia Secondary Impressions: Pneumonia Qualifiers: Pneumonia type: due to unspecified organism Laterality: left Lung location: lower lobe of lung Qualified Code: J18.1 - Lobar pneumonia, unspecified organism Referrals: CHRISTIE DIAZ MD (PCP/Family) Departure Forms: Customer Survey General Discharge Information (DAVID JIMENEZ) Departure Disposition: STILL A PATIENT Condition: Guarded Admission Note Spoke With: FLO SERRANO MD Documentation of Exam: Documentation of any treatments & extenuating circumstances including Concerns Regarding Discharge (functional status, medication knowledge or non-compliance, living conditions, etc.) that warrant an admission rather than observation: [ ADMIT FOR IV STEROIDS, IV ABX, NEBS, CPAP, PULM CONSULT, PT IS AT HIGH RISK, DNR /DNI] PA/ELIGIBILITY CONSULTANT Co-Sign Statement Statement: ED Attending supervision documentation- [X] I saw and evaluated the patient. I have also reviewed all the pertinent lab results and diagnostic results. I agree with the findings and the plan of care as documented in the PA's/ELIGIBILITY CONSULTANT's documentation. [X] I have reviewed the ED Record and agree with the PA's/ELIGIBILITY CONSULTANT's documentation. [] Additions or exceptions (if any) to the PAs/ELIGIBILITY CONSULTANT's note and plan are summarized below: [Patient presents with increasing difficulty breathing despite using multiple nebulizers at home. Patient's son and his girlfriend have just been getting over an upper respiratory illness. Patient is having severe shortness of breath and tripoding. Patient is unable to complete full sentences. Patient is on can support. Patient is DNR DNI however she can go on BiPAP. Positive chills but no fevers. Positive chest tightness. Patient isn't hypercarbic respiratory failure requiring CPAP. Patient requires admission to the hospital is being given IV steroids, IV antibiotics, nebulizer] (VARUN GOLDEN,NAMRATA Regalado) Critical Care Note Critical Care Note Critical Care Time: 30-74 min (DAVID JIMENEZ)
[2016-06-24 18:19] LABS: ABSOLUTE BASOPHIL COUNT 0 /CUMM (0.0-0.2); ABSOLUTE EOSINOPHIL COUNT 0 /CUMM (0.0-0.7); ABSOLUTE GRANULOCYTE CT 9.8 /CUMM (1.4-6.5); ABSOLUTE LYMPH COUNT 0.4 /CUMM (1.2-3.4); ABSOLUTE MONOCYTE COUNT 0.4 /CUMM (0.10-0.60); BASOPHIL % 0 % (0.0-2.0); EOSINOPHIL % 0.1 % (0-5); GRANULOCYTE % 92.6 % (42.2-75.2); HEMATOCRIT 42.2 % (37-47); MEAN CORPUSCULAR HGB 30.9 PG (27.0-31.0); MEAN CORPUSCULAR HGB CONC 32.2 G/DL (33.0-37.0); MEAN PLATELET VOLUME 8.2 FL (7.4-10.4); PLATELET COUNT 249 /CUMM (130-400); RBC DISTRIBUTION WIDTH 13.8 % (11.5-14.5); RED BLOOD CELL CT 4.39 /CUMM (4.20-5.40); WHITE BLOOD CELL COUNT 10.6 /CUMM (4.8-10.8)
--- NOTE | 2016-06-24 18:26 | NUR ---
MEDICATED WITH ATIVAN PER eMAR. RT AT BEDSIDE FOR BIPAP
[2016-06-24] MEDS ORDERED: DULOXETINE HCL20 MG PO (18:29)
[2016-06-24] MEDS ORDERED: OXYCONTIN30 M1 PO (18:31)
--- NOTE | 2016-06-24 18:37 | NUR ---
06/24 CASE MGMT- SPOKE WITH RODGER WITH CT HOSPICE STATES PT ONLY IS UNDER [facility] AND NOT HOSPICE AT THIS TIME. STATES THERE IS AN RN IN HOUSE AND WILL TRY TO COME DOWN TO SEE PT LEELA.
--- NOTE | 2016-06-24 18:54 | RADIOLOGY REPORT ---
EXAMINATION: XR PORTABLE CHEST CLINICAL INFORMATION: Severe dyspnea. COMPARISON: CXR from 04/01/2016 TECHNIQUE: Portable AP view of the chest was obtained. FINDINGS: Lungs are hyperexpanded and hyperlucent from severe emphysema. The bronchial mejia remain thickened in both lungs. This could be a manifestation of chronic bronchitis. A stable calcified granuloma seen in the right upper lobe. In this region, there is a linear opacity of apparent scarring, unchanged compared to 04/01/2016. The hazy opacity projecting lateral to the lower cardiac border might be related to the overlying breast tissue. However, unable to exclude atelectasis or groundglass infiltrate in the lingula. Follow-up PA and lateral chest radiographs may be helpful. Cardiac silhouette is normal in size. The visualized bones are unremarkable. IMPRESSION: 1. Severe pulmonary emphysema and chronic bronchial wall thickening in both lungs. 2. Possible infiltrate within the lingula and/or left lower lobe. Follow-up with PA and lateral chest radiographs may be helpful to confirm presence of new disease in this region.
--- NOTE | 2016-06-24 19:10 | NUR ---
WILL MAGUIRE AT BEDSIDE TO DISCUSS POC. PENDING ADMISSION
--- NOTE | 2016-06-24 19:42 | NUR ---
PT RESTING ON STRETCHER. NO APPRENT DISTRESS NOTED. FAMILY AT BEDSIDE
--- NOTE | 2016-06-24 19:58 | NUR ---
SECOND 20G IV ESTABLISHED IN L HAND BY JOSUE SAINZ. PT'S SP02 92% ON BIPAP. RESPIRATORY CALLED TO ADJUST BIPAP SETTINGS FOR [employer] SP02
--- NOTE | 2016-06-24 20:18 | NUR ---
RESPIRATORY AT BEDSIDE. PT MEDICATED WITH ROCEPHIN 1,000 MG IV
--- NOTE | 2016-06-24 20:30 | History & Physical ---
PAWAN BURGESS 06/24/16 2030: General Information and HPI MD Statement: I have seen and personally examined MALIHA DUARTE and documented this H&P. The patient is a 50 year old F who presented with a patient stated chief complaint of [WORSENING SOB]. Source of Information: family, old records Exam Limitations: clinical condition, ON BIPAP,LETHARGIC History of Present Illness: This is a 50-year-old unfortunate old woman with past medical history of chronic respiratory failure, COPD on 2 L of home oxygen, anxiety, depression, lung cancer (diagnosed in November 2015, with extensive invasion, unclassified), osteopenia, severe pulmonary emphysema, anxiety, depression, previous admission in March 2016 for acute hypercarbic respiratory failure and treated for gram- negative bacteremia, was discharged home with hospice/cancer support 04/07/2016 after goals of care caution on admission in March 2016 comes in today with complain off worsening shortness of breath, congestion and headache. Apparently the patient was having a little bit of cough and cold and congestion since one week prior to admission. 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 The and the son thought that she was doing okay and yesterday she went outside the home which is not usual for her in order to attend an hour of her son's prom night, after which as per the family her condition worsened and she continued to be severely dyspneic, she could not lie in the bed at all, and she continued to have laborious breathing or for they brought her in to [facility]. The son reports that he was sick from cough cold and congestion. When intially she came to ER,she was lethargic and drowsy however she was put on the BiPAP and when we saw her it seemed that her mental status had improved a little bit and she was responding to was, she knew where she was and she was not in her head and answering our questions through actions while on the BiPAP. Allergies/Medications Allergies: Coded Allergies: Penicillins (RASH 06/24/16) Home Med list Albuterol Sulfate (Ventolin Hfa) 18 GM HFA.AER.AD 2 PUF INH Q4H PRN COPD ( Reported) Budesonide/Formoterol Fumarate (Symbicort 160-4.5 Mcg Inhaler) 10.2 GM HFA.AER.AD 2 PUF INH BID COPD (Reported) Duloxetine HCl 20 MG CAPSULE.DR 2 TAB PO BID DEPRESSION (Reported) Lorazepam (Lorazepam Intensol) 2 MG/ML ORAL.CONC 0.5-1.0 MG SL Q4 PRN ANXIETY Mirtazapine 45 MG TABLET 1 TAB PO QHS MENTAL HEALTH (Reported) Oxycodone HCl (Oxycontin) 30 MG TAB.ER.12H 1 TAB PO BID PAIN (Reported) Oxycodone HCl 5 MG TABLET 1-2 TAB PO Q4 PRN PAIN Prednisone 10 MG TABLET 1 TAB PO AD COPD On Take 04/08-04/10 60 MG 04/11-04/13 50 MG 04/14-04/16 40 MG 04/17-04/19 30 MG 04/20-04/22 20 MG 04/23-04/25 10 MG Then Stop Tiotropium [place] (Spiriva) 18 MCG CAP.W.DEV 1 CAP INH DAILY COPD (Reported) Trazodone HCl 100 MG TABLET 1 TAB PO QHS SLEEP (Reported) Compliance With Home Meds: FAIR Past History Travel History Traveled to [place] past 21 day No Medical History Neurological: NONE EENT: NONE Cardiovascular: NONE Respiratory: COPD, pneumonia, 5L NC DEPENDENT RESPIRATORY FAILURE LUNG CA Gastrointestinal: NONE Hepatic: NONE Renal: NONE Musculoskeletal: NONE Psychiatric: anxiety, depression Endocrine: NONE Blood Disorders: anemia Cancer(s): lung cancer 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 SISTER (breast cancer, diabetes, cad). BROTHER (diabetes, cad). Psychosocial History Where do you live? Home Who Do You Live With? spouse, child Services at Home: Nursing Smoking Status: Former Smoker ETOH Use: denies use Illicit Drug Use: denies illicit drug use Functional Ability ADLs Needs Assist: dressing, eating, toileting, bathing. Ambulation: walker IADLs Needs Assist: shopping, housework, finances, food prep, telephone, transportation, medication admin. Review of Systems Review of Systems Constitutional: Reports: fever, malaise. Denies: chills, diaphoresis, weakness, unexplained weight loss. EENTM: Denies: blurred vision, double vision, visual changes, eye pain, eye drainage, eye tearing. Cardiovascular: Reports: orthopena. Denies: chest pain, edema, palpitations, peripheral edema. Respiratory: Reports: cough, short of breath, sputum production, wheezing. Denies: hemoptysis, orthopnea, stridor. GI: Denies: abdominal pain, bloating, constipation, diarrhea, distention. Genitourinary: Denies: discharge, dysuria, frequency, hematuria. Musculoskeletal: Denies: back pain, gout, joint pain, joint swelling, muscle pain. Skin: Reports: no symptoms. Neurological/Psychological: Reports: no symptoms. Hematologic/Endocrine: Reports: no symptoms. Immunologic/Allergic: Reports: no symptoms. All Other Systems: Reviewed and Negative Exam & Diagnostic Data Last 24 Hrs of Vital Signs/I&O Vital Signs Date Time Temp Pulse Resp B/P B/P Pulse O2 O2 Flow FiO2 Mean Ox Delivery Rate 06/24 2113 97.7 96 24 120/78 96 BIPAP 06/24 2012 99 93 06/24 193 97.6 97 24 102/67 93 BIPAP 06/24 1845 99 98 06/24 184 97 BIPAP 35% 06/24 1841 Nasal 6.0L Cannula 06/24 182 97.7 06/24 1811 94 40 135/76 97 Nasal 5.0L Cannula Physical Exam General Appearance Moderate Distress, mildly lethargic ,on bipap, Skin No Rashes, No Breakdown Skin Temp/Moisture Exam: Cool/Dry Sepsis Skin Exam (color): Normal for Ethnicity HEENT Atraumatic, PERRLA, EOMI Neck Supple, No JVD Lymphatic no lad Cardiovascular Regular Rate, Normal S1, Normal S2, No Murmurs Lungs decreased breath sounds, b/l wheezing and rhonchorous sounds Abdomen Normal Bowel Sounds, Soft, No Tenderness Neurological Normal Tone, Sensation Intact Extremities No Clubbing, No Cyanosis, No Edema, Normal Pulses Vascular Normal Pulses Last 24 Hrs of Labs/[place]: Laboratory Tests 06/24/162054: Lactic Acid Cancelled 06/24/162049: pH 7.35, pCO2 57 H, pO2 82, HCO3 31 H, ABG O2 Sat (Measured) 96.0, Carboxyhemoglobin 0.5 L, O2 Concentration % .35, Respiration Rate 24, O2 Delivery Method BIPAP, Vent Mode ST, Expiratory Pressure 6, Inspiratory Pressure 16, Phlebotomy Draw Site RIGHT RADIAL 06/24/16 1800: pH 7.25 *L, pCO2 77 *H, pO2 90, HCO3 33 H, ABG O2 Sat (Measured) 95.0 L, Carboxyhemoglobin 0.6 L, O2 Concentration % 6L, O2 Delivery Method NEB, Anion Gap 11, Estimated GFR > 60, BUN/Creatinine Ratio 20.0, Glucose 99, Lactic Acid 1.1, Calcium 9.4, Total Bilirubin 0.5, AST 31, ALT 48, Alkaline Phosphatase 83, Troponin I < 0.01, Total Protein 7.2, Albumin 4.2, Globulin 3.0, Albumin/ Globulin Ratio 1.4, CBC w Diff NO MAN DIFF REQ, RBC 4.39, MCV 96.0, MCH 30.9, RDW 13.8, MPV 8.2, Gran % 92.6 H, Lymphocytes % 3.9 L, Monocytes % 3.4, Eosinophils % 0.1, Basophils % 0 L, Absolute Granulocytes 9.8 H, Absolute Lymphocytes 0.4 L, Absolute Monocytes 0.4, Absolute Eosinophils 0, Absolute Basophils 0, PUBS MCHC 32.2 L, Phlebotomy Draw Site RIGHT RADIAL Microbiology 06/24 2032 LOWER RESP: Respiratory Culture - ORD 06/24 2032 LOWER RESP: Gram Stain - ORD 06/24 1811 BLOOD: Blood Culture - RECD 06/24 1800 BLOOD: Blood Culture - RECD Diagnostic Data EKG Results Normal sinus rhythm, rate of 95, HI 136, QTC 408, no acute ST-T wave changes, erratic baseline however CXR Results Chest x-ray showed severe pulmonary emphysema, chronic bronchial wall thickening in both lungs, possible infiltrate within the lingula or the left lower lobe. Assessment/Plan Assessment: In summary this is a 50-year-old unfortunate woman with past medical history of COPD on 2 L of home oxygen, chronic respiratory failure, anxiety, and depression lung cancer diagnosed in November 2015 with extensive intervention, unclassified, no pathological diagnosis probably secondary to extensive spread), osteopenia, severe pulmonary emphysema, recently discharged from [facility] while being admitted for 6 days on 04/07/2016 with hospice questionable can support care after being treated for acute hypercarbic respiratory failure, pneumonia and gram-negative bacteremia comes in again with worsening shortness of breath, with positive history of cold cough and congestion 1 week prior to admission, positive sick contact with son being sick, worsening shortness of breath 1 day prior to admission, when she went out of the home for 1 hour, with labored breathing brought in to [facility] today on 06/24/2016. The patient was last time discharged on hospice and/can support which is not very clear at this point, she was seeing Dr. Bell and she was told that she should take Medrol [place] when necessary when her breathing gets worse. We discussed the situation with her and the son and they wanted to keep the patient DNR/DNI however they wanted BiPAP, antibiotics and all the basic treatment not to make her feel better. However it was discussed clearly that over the night the patient gets worse then they do not want the patient to be intubated, no central lines, no invasive measures and at that point discussion of comfort care would be made. Her vitals on presentation were she was afebrile with MAXIMUM TEMPERATURE of 97.6, blood pressure of 102/67, she was tachycardic at 97, respiratory rate of 24, she was 93% when placed on the BiPAP. She had a white count of 10.6, H/H of 13.6/42.2, platelet of 249. Electrolytes were mostly within normal limit, BUN and creatinine normal. She was found to have severe respiratory acidosis with ABG of 7.25/77/90/33. Lactic acidosis that was negative, liver function tests and troponins were negative. She received one time of IV ceftriaxone and azithromycin while at the emergency department and one time of 125 mg Solu-Medrol. She also initially decided TRC nebulizations and then she was placed on BiPAP. After being on BiPAP the repeat ABG showed an 0.35/PCO2 of 57/82/31/PO2 of 82. Her the status also improved after being on the BiPAP as the PCO2 came down. She was more alert she knew where she was. Problem list along with assessment and plan. Problem #1 acute hypercarbic and hypoxic respiratory failure. This is most likely secondary to her advanced COPD with severe emphysema with h/ o lung cancer. Continue IV ceftriaxone and azithromycin. Continue IV steroids starting 40 twice a day, she already received one time of 125 Solu-Medrol at the ER. Continue TRC nebulizations. The chest x-ray did show infiltrates in the left lower lobe therefore will continue treatment with antibiotics. Continue to follow blood cultures. Continue follow urine cultures, lower respiratory cultures. Patient did not have any urinary symptoms, however she was not completely alert even though her lethargy did improve. Repeat ABG showed improvement in the PCO2. We'll get the next ABG in the morning with the morning labs. Continue monitor vitals, continue monitor respiratory status continue monitor intakes and outputs. #2 History of lung cancer. Diagnosed in November 2015, as per the family the cancer was extensive, a biopsy to find a pathological diagnosis was never done. 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 #3 history of chronic pain We'll hold the oxycodone and OxyContin which are her home medications for now. And restart it from tomorrow morning. Patient does not complain of any pain right now. #4 history of depression/anxiety. We'll start the home medication of mirtazapine/Cymbalta from tomorrow in a.m. #5 Goals of Care. It seems that the patient was discharged on Cancer support and not hospice last time. We will monitor the patient closely overnight. For now the son and the agrees to treat, keep her DNR/DNI. However overnight if she worsnes, then we will consider comfort measures and keep her comfortable. Case mx consult in am. Continue regular diet. DVT prophylaxis with Lovenox. Patient is DNR/DNI. Pain management pathway. As Ranked By This Provider Problem List: 1. Community acquired pneumonia 2. COPD 3. Respiratory failure 4. Pneumonia Qualifiers Pneumonia type: due to unspecified organism Laterality: left Lung location: lower lobe of lung Qualified Code: J18.1 - Lobar pneumonia, unspecified organism 5. Hypercapnic respiratory failure Qualifiers Chronicity: acute on chronic Qualified Code: J96.22 - Acute and chronic respiratory failure with hypercapnia Core Measures/Miscellaneous Acute Coronary Syndrome ACS Diagnosis: No Cerebrovascular Accident CVA/TIA Diagnosis: No Congestive Heart Failure CHF Diagnosis: No Venous Thromboembolism VTE Risk Factors: Age > 40 [facility] prophylaxis d/t: No contraindications No VTE Pharm Prophylaxis d/t: No contraindications VTE Diagnosis: No VTE Type: NONE VTE Confirmed by (Test): NONE Severe Sepsis Severe Sepsis Present: No Septic Shock Septic Shock Present: No Miscellaneous Documentation Attending Case Discussed With: FLO SERRANO MD Primary Care Physician: CHRISTIE DIAZ MD Patient sees these Specialists Dr. Bell. Level of Patient Care: General Medicine Resident Review Statement Resident Statement: admitted by resident RITA SERRANO MD 06/25/16 0216: Attending MD Review Statement Attending Statement Attending MD Statement: examined this patient, discuss w/resident/PA/INSIDE SOLAR SALES CONSULTANT, agreed w/resident/PA/INSIDE SOLAR SALES CONSULTANT, discussed with family Attending Assessment/Plan: 50 yo F with h/o chronic hypoxic respiratory failure, end-stage COPD on 4-5 O2, chronic pain on opiates, anxiety/ panic attack, depression, osteopenia, recently diagnosed lung cancer (June 2015) not undergoing therapy due to underlying end- stage COPD and co-morbidities given poor outcome, is brought in today for worsening dyspnea, cough, congestion and wheezing that did not improve with inhalers. Lethargy++, slept all day per son who is the caregiver. Sick contact+ Son was diagnosed with bronchitis. Family reports that patient is possibly smoking without their knowledge. Of note, patient was last admitted to [facility] in Mar 2016 for COPDE, and was discharged to home hospice. site operations manager confirmed with [facility] hospice that [facility] is [facility] and not home hospice. Vitals: tachycardic, afebrile, sats 97% on 6L --> 96% on Bipap. Exam: cachetic female in moderate respiratory distress on Bipap, alert, oriented dry mucous membranes, mucousy phlegm over lips, pupils were mid-dilated RTL, Chest reduced air entry with diffuse espiratory wheezes and rhonchi, Heart S1S2 regular, Abd soft, NT, Extremities no edema. Labs: hypercarbia. CXR: severe pulmonary emphysema and chronic bronchial wall thickening. Possible infiltrate within lingula and/or LLL. AB.25/77/90/33. EKG: SR. 1. Acute on chronic hypoxic and hypercarbic respiratory failure 2/2 COPD exacerbation and community acquired pneumonia. GM admit, TRC nebs, sputum culture, continue IV steroids and IV ceftriaxone and azithro. Repeat ABG shows improvement in acidosis --> 7.35/57/82/31 on Bipap. Continue Bipap overnight. Resume symbicort. NPO while on Bipap, gentle hydration. Pulm consult (Dr. Bell ). Avoid sedative med opiates to be restarted only in AM. Resume trazodone, duloxatine, mirtazapine and lorazepam in AM. I had a detailed discussion with family, her code status is DNR/I as per patient 's wishes. If patient does not improve overnight, they wish to keep her comforable. DVT ppx Lovenox. DNR/I.
--- NOTE | 2016-06-24 20:30 | NUR ---
HOUSE STAFF AT BEDSIDE FOR EVAL
--- NOTE | 2016-06-24 20:49 | NUR ---
PT AWAKE AND ALERT. SPO2 96% ON BIPAP. RESPIRATORY AT BEDSIDE FOR REPEAT ABG
--- NOTE | 2016-06-24 21:05 | NUR ---
PT GOING TO ROOM 219-2.
--- NOTE | 2016-06-24 21:41 | NUR ---
REPORT CALLED TO RUTHIE SAINZ. REPIRATORY AND DISTRIBUTION CALLED TO TRANSPORT PT
--- NOTE | 2016-06-24 22:03 | Admission Certification ---
Admission Certification Certification Statement - As attending physician, I certify that at the time of - admission, based on clinical presentation, severity of - symptoms, need for further diagnostic testing and - therapeutic interventions, and risk of adverse outcomes - without in-hospital treatment, in my clinical assessment, - this patient requires an acute hospital stay for a minimum - of two nights or longer. I have also considered psychsocial - factors such as support system, advanced age, financial - issues, cognitive issues, and failed out-patient treatments, - past re-admission history, safety of patient, and lack of - compliance as applicable. Specific rationale supporting this admission is: Acute on chronic hypoxic and hypercapneic respiratory failure, COPD exacerbation and CAP.
[2016-06-24 23:05] VITALS: BP 115/78
--- NOTE | 2016-06-25 01:54 | NUR ---
LATE ENTRY FOR 06/24/16 [id number] NEW ADMISSION SETTLED INTO RM 219-1. AOX3. BIPAP IN USE. FAMILY BEDSIDE.
[2016-06-25 06:58] VITALS: BP 112/78
[2016-06-25 08:15] LABS: ABSOLUTE BASOPHIL COUNT 0 /CUMM (0.0-0.2); ABSOLUTE EOSINOPHIL COUNT 0 /CUMM (0.0-0.7); ABSOLUTE GRANULOCYTE CT 5.8 /CUMM (1.4-6.5); ABSOLUTE LYMPH COUNT 0.5 /CUMM (1.2-3.4); ABSOLUTE MONOCYTE COUNT 0.8 /CUMM (0.10-0.60); BASOPHIL % 0 % (0.0-2.0); EOSINOPHIL % 0 % (0-5); GRANULOCYTE % 82.2 % (42.2-75.2); MEAN CORPUSCULAR HGB 30.7 PG (27.0-31.0); MEAN CORPUSCULAR HGB CONC 32.4 G/DL (33.0-37.0); MEAN CORPUSCULAR VOLUME 94.8 FL (81.0-99.0); MEAN PLATELET VOLUME 8.7 FL (7.4-10.4); PLATELET COUNT 225 /CUMM (130-400); RBC DISTRIBUTION WIDTH 13.8 % (11.5-14.5); RED BLOOD CELL CT 3.92 /CUMM (4.20-5.40)
[2016-06-25 08:25] LABS: HEMATOCRIT 37.2 % (37-47)
--- NOTE | 2016-06-25 12:00 | NUR ---
LATE ENTRY: PT APPARENTLY ON HOME HOSPICE BUT BROUGHT IN TO HOSPITAL PT'S INCREASED SOB CONCERNED PT'S SON. PT GETTING TX ORDERED BY MD AND IS ALSO BEING FOLLOWED BY RESPIRATORY. PT DOING FAIR WITH USE OF BIPAP AND AT TIMES IS ABLE TO USE NC ON 5LPM. PT DOES GET SOB WITH SPEECH. RESPIRATIONS NOTED TO BE LABORED WITH MINIMAL EXERTION. SATS 93 ON NC AND 96% WITH USE OF BIPAP. PT OFTEN GETS ANXIOUS D/T SOB. PRN ATIVAN UTILIZED NEEDED. EMOTIONAL REASSURANCE ALSO PROVIDED. DISCUSSION ABOUT POSSIBLE CONSIDERATION FOR INPT HOSPICE TO OCCUR. PT STABLE FOR NOW. DIVINITY TEACHER VERONICA AWARE OF ABOVE. RN CABLE ASSEMBLER AND SWAGER DIANNE MADE AWARE. WILL CONT TO MONITOR.
--- NOTE | 2016-06-25 12:52 | PN- Att Addend ---
Attending Addendum Attending Brief Note Patient was seen and evaluated. H&P reviewed. Briefly, she is 50 yo F with h/o chronic hypoxic respiratory failure, end-stage COPD on 4-5 O2, chronic pain on opiates, anxiety/ panic attack, depression, osteopenia, recently diagnosed lung cancer (June 2015) not undergoing therapy due to underlying end-stage COPD and co -morbidities given poor outcome a/w worsening dyspnea, cough, congestion and wheezing that did not improve with inhalers. Lethargy++, slept all day per son who is the caregiver. Sick contact+ Son was diagnosed with bronchitis. Family reports that patient is possibly smoking without their knowledge. Of note, patient was last admitted to [facility] in Mar 2016 for COPDE, and was discharged to home hospice. Vital Signs Date Time Temp Pulse Resp B/P B/P Pulse O2 O2 Flow FiO2 Mean Ox Delivery Rate 06/25 1205 110 98 06/25 0830 95 Nasal 5.0L Cannula 06/25 0823 114 93 06/25 0658 96.7 102 22 112/78 92 Nasal 4.0L Cannula 06/25 0503 115 92 06/25 0502 87 Nasal 4.0L Cannula 06/25 0420 114 93 06/25 0310 94 96 06/25 0006 77 95 06/25 0000 94 BIPAP 06/24 2305 97.5 93 24 115/78 94 BIPAP 06/24 2230 BIPAP 35% 06/24 2114 97.7 96 24 120/78 96 BIPAP 06/24 2013 99 93 06/24 1939 97.6 97 24 102/67 93 BIPAP 06/24 1845 99 98 06/24 1844 97 BIPAP 35% 06/24 1842 Nasal 6.0L Cannula 06/24 1828 97.7 06/24 1811 94 40 135/76 97 Nasal 5.0L Cannula Intake & Output 06/25 1600 06/25 0800 06/25 0000 Intake Total 590 Output Total 800 Balance -210 Intake, IV 110 Intake, Oral 480 Number 1 Bowel Movements Output, Urine 800 Patient 45.359 kg Weight Weight Reported by Patient Measurement Method GEN; able to speak, NAD HEENT: moist mucosa LUNGS: +wheeze/rhonci HEART: s1s2 Labs/Diagnostics- reviewed A/P: Currently, reports that her breathing is stable. she was started on IV abx overnight -- cont current plan of care -- f/u Pulm eval -- contact Hospice team -- DNR/DNI
[2016-06-25 15:21] VITALS: BP 112/76
--- NOTE | 2016-06-25 21:31 | NUR ---
ALERT AND ORIENTED X 3. SHORT OF BREATH. ON 5L VIA NC. EXPIRATORY WHEEZING. VITAL SIGNS STABLE. DENIES CHEST PAIN. + PULSES MEDICATION GIVEN FOR ANXIETY AND PAIN. NO DISTRESS NOTED. SKIN C/D/I. WEAK GAIT. WILL CONTINUE TO MONITOR
[2016-06-25 21:42] VITALS: BP 184/84
[2016-06-25 22:05] VITALS: BP 114/78
[2016-06-26 06:12] VITALS: BP 122/78
--- NOTE | 2016-06-26 07:08 | Cons- Pulmonary ---
General Information and HPI Consulting Request Date of Consult: 06/25/16 Requested By: Dr. Cancino Reason for Consult: Respiratory failure Source of Information: patient, old records Exam Limitations: clinical condition History of Present Illness: The patien is a 50-year-old old woman with past medical history of chronic respiratory failure, COPD on 4-5 L of home oxygen, anxiety, depression, lung cancer (diagnosed in November 2015, with extensive invasion, unclassified), osteopenia, severe pulmonary emphysema, anxiety, and depression. The patient most recently was admitted in March 2016 for acute hypercarbic respiratory failure and treated for gram-negative bacteremia. She was discharged home with hospice/cancer support 04/07/2016. The patient presented to the emergency department with increased cough, shortness of breath and chest congestion. The patient also had significant orthopnea. In the emergency department she was found to be lethargic and was placed on BiPAP. As per the patient's son, once she was in the emergency department and treated, her respiratory status has significantly improved. The patient is currently on BiPAP and not offering any answers to questions although she is arousable. Chest x-ray showed severe pulmonary emphysema and chronic bronchial wall thickening, along with a possible lingular/left lower lobe infiltrate. Allergies/Medications Allergies: Coded Allergies: Penicillins (RASH 06/24/16) Home Med List: Albuterol Sulfate (Ventolin Hfa) 18 GM HFA.AER.AD 2 PUF INH Q4H PRN COPD ( Reported) Budesonide/Formoterol Fumarate (Symbicort 160-4.5 Mcg Inhaler) 10.2 GM HFA.AER.AD 2 PUF INH BID COPD (Reported) Duloxetine HCl 20 MG CAPSULE.DR 2 TAB PO BID DEPRESSION (Reported) Lorazepam (Lorazepam Intensol) 2 MG/ML ORAL.CONC 0.5-1.0 MG SL Q4 PRN ANXIETY Mirtazapine 45 MG TABLET 1 TAB PO QHS MENTAL HEALTH (Reported) Oxycodone HCl (Oxycontin) 30 MG TAB.ER.12H 1 TAB PO BID PAIN (Reported) Oxycodone HCl 5 MG TABLET 1-2 TAB PO Q4 PRN PAIN Prednisone 10 MG TABLET 1 TAB PO AD COPD On Take 04/08-04/10 60 MG 04/11-04/13 50 MG 04/14-3/05 40 MG 04/17-04/19 30 MG 04/20-04/22 20 MG 04/23-04/25 10 MG Then Stop Tiotropium [place] (Spiriva) 18 MCG CAP.W.DEV 1 CAP INH DAILY COPD (Reported) Trazodone HCl 100 MG TABLET 1 TAB PO QHS SLEEP (Reported) Review of Systems Review of Systems All Other Systems: Reviewed and Negative Past History Travel History Traveled to [place] past 21 day No Medical History Blood Transfusion Hx: No Neurological: NONE EENT: NONE Cardiovascular: NONE Respiratory: COPD, pneumonia, 02 4L AT HOME RESPIRATORY FAILURE LUNG CA Gastrointestinal: NONE Hepatic: NONE Renal: NONE Musculoskeletal: SLIGHT SWELLING TOP R HAND Psychiatric: anxiety, depression Endocrine: osteoporosis Blood Disorders: anemia Cancer(s): lung cancer 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 SISTER (breast cancer, diabetes, cad). BROTHER (diabetes, cad). Psychosocial History Where Do You Live? Home Who Do You Live With? spouse, child Services at Home: Home Health Aide, Nursing Smoking Status: Former Smoker ETOH Use: denies use Illicit Drug Use: denies illicit drug use Functional Ability ADLs Needs Assist: dressing, eating, toileting, bathing. IADLs Needs Assist: shopping, housework, finances, food prep, telephone, transportation, medication admin. Exam & Diagnostic Data Last 24 Hrs of Vital Signs/I&O Vital Signs Date Time Temp Pulse Resp B/P B/P Pulse O2 O2 Flow FiO2 Mean Ox Delivery Rate 06/25 1205 110 98 06/25 0830 95 Nasal 5.0L Cannula 06/25 0823 114 93 06/25 0658 96.7 102 22 112/78 92 Nasal 4.0L Cannula 06/25 0503 115 92 06/25 0502 87 Nasal 4.0L Cannula 06/25 0420 114 93 06/25 0310 94 96 06/25 0006 77 95 06/25 0000 94 BIPAP 06/24 2305 97.5 93 24 115/78 94 BIPAP 06/240 BIPAP 35% 06/24 2113 97.7 96 24 120/78 96 BIPAP 06/24 2012 99 93 06/24 1938 97.6 97 24 102/67 93 BIPAP 06/24 1845 99 98 06/24 184 97 BIPAP 35% 06/24 1842 Nasal 6.0L Cannula 06/24 1828 97.7 06/24 1811 94 40 135/76 97 Nasal 5.0L Cannula Intake & Output 06/25 1600 06/25 0800 06/25 0000 Intake Total 590 Output Total 800 Balance -210 Intake, IV 110 Intake, Oral 480 Number 1 Bowel Movements Output, Urine 800 Patient 99 lb 15.99 oz Weight Weight Reported by Patient Measurement Method Physical Exam General Appearance: awake, cchronically ill, on BiPAP Head: atraumatic, normal appearance Neck: supple Respiratory: severely diminished bilateral breath sounds Cardiovascular: regular rate/rhythm (heart sounds distant) Gastrointestinal: normal bowel sounds, soft, non-tender Extremities: no edema Skin: intact, normal color, warm/dry Last 48 Hrs of Labs/Benito: Laboratory Tests 06/25/16 0650: Anion Gap 9, Estimated GFR > 60, BUN/Creatinine Ratio 30.0 H, CBC w Diff NO MAN DIFF REQ, RBC 3.92 L, MCV 94.8, MCH 30.7, RDW 13.8, MPV 8.7, Gran % 82.2 H, Lymphocytes % 6.7 L, Monocytes % 11.1 H, Eosinophils % 0, Basophils % 0 L, Absolute Granulocytes 5.8, Absolute Lymphocytes 0.5 L, Absolute Monocytes 0.8 H, Absolute Eosinophils 0, Absolute Basophils 0, PUBS MCHC 32.4 L 06/25/16 0415: pH 7.37, pCO2 59 H, pO2 71 L, HCO3 34 H, ABG O2 Sat (Measured) 94.0 L, P-50 (Temp Corrected) Y, Carboxyhemoglobin 0.4 L, O2 Concentration % 35%, Temperature 98.0, Respiration Rate 24, O2 Delivery Method VISION, Vent Mode ST, Expiratory Pressure 6, Inspiratory Pressure 16, Phlebotomy Draw Site RIGHT RADIAL 06/25/16 0410: Urine Opiates Screen 2280.00 H, Methadone Screen 59, Barbiturate Screen < 60, Ur Phencyclidine Scrn < 6.00, Amphetamines Screen < 100, U Benzodiazepines Scrn < 85, Urine Cocaine Screen < 50, Urine Cannabis Screen < 5.00, Urinalysis LIGHT H, Urine Color YEL, Urine Clarity CLEAR, Urine pH 6.5, Ur Specific Trade 1.015 , Urine Protein NEG, Urine Ketones >=80, Urine Nitrite NEG, Urine Bilirubin NEG, Urine Urobilinogen 0.2, Ur Leukocyte Esterase SMALL H, Ur Microscopic SEDIMENT EXAMINED, Urine RBC 1-3, Urine WBC 1-3 H, Ur Epithelial Cells FEW, Urine Bacteria MOD H, Urine Mucus RARE, Urine Hemoglobin TRACE-INTACT, Urine Glucose NEG 06/24/162054: Lactic Acid Cancelled 06/24/162049: pH 7.35, pCO2 57 H, pO2 82, HCO3 31 H, ABG O2 Sat (Measured) 96.0, Carboxyhemoglobin 0.5 L, O2 Concentration % .35, Respiration Rate 24, O2 Delivery Method BIPAP, Vent Mode ST, Expiratory Pressure 6, Inspiratory Pressure 16, Phlebotomy Draw Site RIGHT RADIAL 06/24/16 1800: pH 7.25 *L, pCO2 77 *H, pO2 90, HCO3 33 H, ABG O2 Sat (Measured) 95.0 L, Carboxyhemoglobin 0.6 L, O2 Concentration % 6L, O2 Delivery Method NEB, Anion Gap 11, Estimated GFR > 60, BUN/Creatinine Ratio 20.0, Glucose 99, Lactic Acid 1.1, Calcium 9.4, Total Bilirubin 0.5, AST 31, ALT 48, Alkaline Phosphatase 83, Troponin I < 0.01, Total Protein 7.2, Albumin 4.2, Globulin 3.0, Albumin/ Globulin Ratio 1.4, CBC w Diff NO MAN DIFF REQ, RBC 4.39, MCV 96.0, MCH 30.9, RDW 13.8, MPV 8.2, Gran % 92.6 H, Lymphocytes % 3.9 L, Monocytes % 3.4, Eosinophils % 0.1, Basophils % 0 L, Absolute Granulocytes 9.8 H, Absolute Lymphocytes 0.4 L, Absolute Monocytes 0.4, Absolute Eosinophils 0, Absolute Basophils 0, PUBS MCHC 32.2 L, Phlebotomy Draw Site RIGHT RADIAL Assessment/Plan Impression/Plan: 1. Acute on chronic hypercarbic respiratory failure. 2. Severe pulmonary emphysema, end-stage lung disease. 3. Left lower lobe pneumonia. 4. History of lung cancer. Recommendations: * Continue IV ceftriaxone and azithromycin. * Continue IV steroids. * Continue nebs/TRC. * Follow up culture results. * Continue the patient on a pain pathway. * Continue inhaler therapy. * Continue all supportive care. * DVT prophylaxis at all times. * Thank you for the consult, will continue to follow. Consult Acknowledgment - Thank you for your consult request.
--- NOTE | 2016-06-26 07:23 | PN- Housestaff ---
JIMI GOLDEN,NELY 06/26/16 0723: Subjective Follow-up For: Acute on chronic hypercarbic respiratory failure. Subjective: Patient is sitting up in bed. She seems to be in moderate distress with her breathing (currently at 5.0L). She believes that she has been on home hospice, all this while. Spoke to her primary caregiver as well, who believed the same. Records revealed that the patient has been on CAN support and not home hospice. Review of Systems Constitutional: Reports: see HPI. Objective Last 24 Hrs of Vital Signs/I&O Vital Signs Date Time Temp Pulse Resp B/P B/P Pulse O2 O2 Flow FiO2 Mean Ox Delivery Rate 06/26 0612 98.9 107 20 122/78 92 Nasal 5.0L Cannula 06/26 0140 108 98 06/26 0000 98 Nasal 4.0L Cannula 06/25 2205 97.6 102 17 114/78 97 Nasal 5.0L Cannula 06/25 2054 Nasal 3.0L Cannula 06/25 1717 95 Nasal 3.0L Cannula 06/25 1600 Nasal 5.0L Cannula 06/25 1521 97.9 94 22 112/76 92 Nasal 4.0L Cannula 06/25 1205 110 98 06/25 0830 95 Nasal 5.0L Cannula 06/25 0823 114 93 06/25 0800 96 BIPAP 40% Intake & Output 06/26 0800 06/26 0000 06/25 1600 Intake Total 720 465 200 Output Total 800 300 Balance -80 465 -100 Intake, IV 600 225 Intake, Oral 120 240 200 Number 1 Bowel Movements Output, Urine 800 300 Physical Exam General Appearance: Alert, Oriented X3, Cooperative, Moderate Distress Cardiovascular: Normal S1, Normal S2, tachycardic Lungs: diminished airway entry bilaterally. Abdomen: Normal Bowel Sounds, Soft, No Tenderness Neurological: Strength at 5/5 X4 Ext, Normal Tone, Sensation Intact, labored speech, secondary to difficulty breathing. Extremities: No Edema Current Medications: Current Medications Sig/Osmar Start time Last Medication Dose Route Stop Time Status Admin Albuterol Sulfate 3 ML EVERY 4 HRS/AWAKE 06/25 0800 AC 06/25 INH 2053 Azithromycin 500 MG Q24H 06/25 1900 AC 06/25 Sodium Chloride 250 ML IV 2014 Azithromycin 500 MG DAILY 06/25 1000 DC Sodium Chloride 250 ML IV Budesonide/ 2 PUF BID 06/25 0354 AC 06/25 Formoterol Fumarate INH 2138 Ceftriaxone Sodium 1,000 MG ONCE ONE 06/25 1900 DC 06/25 IV 06/25 1902014 Ceftriaxone Sodium 1,000 MG ONCE ONE 06/25 1000 DC IV 06/25 1001 Duloxetine HCl 40 MG BID 06/25 1000 AC 06/25 PO 2133 Enoxaparin Sodium 40 MG DAILY 06/25 1000 AC SC Lorazepam 0.5 MG ONCE ONE 06/25 1545 DC 06/25 IV 06/25 1546 1702 Lorazepam 0.5 MG Q4 PRN 06/25 1000 AC 06/26 PO 07/02 0429 0546 Methylprednisolone 40 MG Q12 06/25 1000 AC 06/25 IV 2137 Mirtazapine 45 MG QPM 06/25 2200 DC PO Mirtazapine 45 MG QPM 06/25 2200 AC 06/25 PO 2253 Oxycodone HCl 30 MG Q12 06/25 1000 AC 06/25 PO 2133 Oxycodone HCl 5 MG Q4 PRN 06/25 0445 AC PO Oxycodone HCl 10 MG Q4 PRN 06/25 0445 AC 06/25 PO 2254 Sodium Chloride 1,000 ML Q13H 06/25 0415 AC 06/26 IV 0546 Trazodone HCl 100 MG AT BEDTIME 06/25 0230 AC 06/25 PO 2254 Last 24 Hrs of Lab/Benito Results Last 24 Hrs of Labs/Mics: Laboratory Tests 06/26/16 0715: Sodium Pending, Potassium Pending, Chloride Pending, Carbon Dioxide Pending, Anion Gap Pending, BUN Pending, Creatinine Pending, BUN/Creatinine Ratio Pending Lines/Diet/Fluids Lines: peripheral lines Assessment/Plan Assessment: This is a 50 yo F with h/o chronic hypoxic respiratory failure, 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 She was initially admitted to the ICU and started on antibiotics, but later transferred to the floor. She is being treated for CAP with Ceftriaxone and Azithro, Solumedrol 40 Q12, Ativan for anxiety. She is to be evaluated by the hospice team for further management. Problem List: 1. Acute respiratory failure Pain Ratin Pain Location: None Pain Goal: Pain 4 or less Pain Plan: Per EMR Tomorrow's Labs & Rationales: Not needed as the patient may become hospice. DVT/Prophylaxis: pharmacological JOVANNA GOLDEN,FANTASMA 06/26/16 1203: Attending MD Review Statement Attending Statement Attending MD Statement: examined this patient, discuss w/resident/PA/HEAD ATHLETIC TRAINER/STRENGTH COACH, agreed w/resident/PA/HEAD ATHLETIC TRAINER/STRENGTH COACH, reviewed EMR data (avail), discussed with nursing, discussed with case mgmt, reviewed images Attending Assessment/Plan: Appreciate close pulmonary follow-up. This is a 50-year-old with pretty advanced COPD and the spiculated right upper lobe lung mass that had FDG uptake in a PET done in July with a diagnosis of presumed lung cancer. At this point Dr. Bell is recommending a hospice eval as the goal is to keep patient comfortable and pain-free. She is down to 5 L of oxygen. She has acute hypoxic and hypercapnic failure in the setting of chronic respiratory failure. We are also treating this possible pneumonia with the left-sided infiltrate with IV ceftriaxone and azithromycin, she is on IV steroids and will follow closely.
--- NOTE | 2016-06-26 09:36 | PN- Pulmonary ---
See Addendum Subjective HPI/Critical Care Issues: pt seen and examined dyspnea at rest has been on home hospice to clarify there is no diagnosis of lung cancer recorded, altough suspected Objective Current Medications: Current Medications Sig/Osmar Start time Last Medication Dose Route Stop Time Status Admin Albuterol Sulfate 3 ML EVERY 4 HRS/AWAKE 06/25 0800 AC 06/26 INH 0816 Azithromycin 500 MG Q24H 06/25 1900 AC 06/25 Sodium Chloride 250 ML IV 2014 Azithromycin 500 MG DAILY 06/25 1000 DC Sodium Chloride 250 ML IV Budesonide/ 2 PUF BID 06/25 0354 AC 06/25 Formoterol Fumarate INH 2138 Ceftriaxone Sodium 1,000 MG ONCE ONE 06/25 1900 DC 06/25 IV 06/25 1902014 Ceftriaxone Sodium 1,000 MG ONCE ONE 06/25 1000 DC IV 06/25 1001 Duloxetine HCl 40 MG BID 06/25 1000 AC 06/25 PO 2133 Enoxaparin Sodium 40 MG DAILY 06/25 1000 AC SC Lorazepam 0.5 MG ONCE ONE 06/25 1545 DC 06/25 IV 06/25 1546 1702 Lorazepam 0.5 MG Q4 PRN 06/25 1000 AC 06/26 PO 07/02 0429 0546 Methylprednisolone 40 MG Q12 06/25 1000 AC 06/25 IV 2137 Mirtazapine 45 MG QPM 06/25 2200 DC PO Mirtazapine 45 MG QPM 06/25 2200 AC 06/25 PO 2253 Oxycodone HCl 30 MG Q12 06/25 1000 AC 06/25 PO 2133 Oxycodone HCl 5 MG Q4 PRN 06/25 0445 AC PO Oxycodone HCl 10 MG Q4 PRN 06/25 0445 AC 06/25 PO 2254 Sodium Chloride 1,000 ML Q13H 06/25 0415 AC 06/26 IV 0546 Trazodone HCl 100 MG AT BEDTIME 06/25 0230 AC 06/25 PO 2254 Vital Signs & I&O Last 24 Hrs of Vitals and I&O: Vital Signs Date Time Temp Pulse Resp B/P B/P Pulse O2 O2 Flow FiO2 Mean Ox Delivery Rate 06/26 0910 94 Nasal 4.0L Cannula 06/26 0910 94 06/26 0820 94 BIPAP 35% 06/26 0819 94 06/26 0612 98.9 107 20 122/78 92 Nasal 5.0L Cannula 06/26 0140 108 98 05 0000 98 Nasal 4.0L Cannula 06/25 2205 97.6 102 17 114/78 97 Nasal 5.0L Cannula 06/25 2054 Nasal 3.0L Cannula 06/25 1717 95 Nasal 3.0L Cannula 06/25 1600 Nasal 5.0L Cannula 06/25 1521 97.9 94 22 112/76 92 Nasal 4.0L Cannula 06/25 1205 110 98 Intake & Output 06/26 1600 06/26 0800 06/26 0000 Intake Total 720 665 Output Total 800 Balance -80 665 Intake, IV 600 225 Intake, Oral 120 440 Output, Urine 800 Exam Other Physical Findings: gen awake and alert heent poor dentition cvs s1, s2 lungs rhonchi, diminished bs, bilateral wheezing abd soft bs+ ext without edema, lipoma seems to be dimnished Results Last 24 Hrs of Lab Results: Laboratory Tests 06/26/16 0715: Carbon Dioxide Pending, Anion Gap Pending, Estimated GFR > 60, BUN/Creatinine Ratio 25.0 Impression/Plan Impression/Plan Impression/Plan: Impression 50 year old woman * end stage o2 dependent COPD with an exacerbation * presumed lung cancer without a definitive diagnosis based on patient wishes * anxiety and chronic pain/back pain Plan - anxiolysis - pain control - cont empiric abx - cont steroids - bipap as needed - call hospice and alert them of patient's admission - trc/nebs - patient had a ganglion cyst or possibly lipoma and had a plan for surgical intervention with Dr. Hendricks, please alert the surgical team of bekahn's admission and improved hand lesion DVT prophylaxis at all times
[2016-06-26 13:54] VITALS: BP 115/71
--- NOTE | 2016-06-26 13:56 | Discharge Summary ---
Visit Information Visit Dates Admission Date: 06/24/16 Discharge Date: 06/27/16 Hospital Course Course Attending Physician: MARINA SUAREZ MD Primary Care Physician: CHRISTIE DIAZ MD Consulting Request: Consulting Specialty: Pulmonary Disease Consulting Physician: Dr. Bell [facility] Course: 50-year-old unfortunate woman with past medical history of COPD on 2 L of home oxygen, chronic respiratory failure, anxiety, and depression lung cancer diagnosed in November 2015 with extensive intervention, unclassified, no pathological diagnosis probably secondary to extensive spread), osteopenia, severe pulmonary emphysema, recently discharged from [facility] while being admitted for 6 days on 04/07/2016 with, CAN support care after being treated for acute hypercarbic respiratory failure, pneumonia and gram-negative bacteremia comes in again with worsening shortness of breath, with positive history of cold cough and congestion 1 week prior to admission, positive sick contact with son being sick, worsening shortness of breath 1 day prior to admission, when she went out of the home for 1 hour, with labored breathing brought in to [place] ER today on 06/24/2016. Her vitals on presentation were she was afebrile with MAXIMUM TEMPERATURE of 97.6, blood pressure of 102/67, she was tachycardic at 97, respiratory rate of 24, she was 93% when placed on the BiPAP. white count of 10.6, H/H of 13.6/42.2, platelet of 249. severe respiratory acidosis with ABG of 7.25/77/90/33. She received one time of IV ceftriaxone and azithromycin while at the emergency department and one time of 125 mg Solu-Medrol. She also initially decided TRC nebulizations and then she was placed on BiPAP. After being on BiPAP the repeat ABG showed an 0.35/PCO2 of 57/82/31/PO2 of 82. Her the status also improved after being on the BiPAP as the PCO2 came down. She was more alert she knew where she was. She was admitted to the General Medicine floor. Patient was started on Ceftriaxone and Azithromycin. Sputum cultures, urine for Legionella and Strep pneumo was sent. She was also placed on Solumedrol 40 mg Q12. Pulmonology consult was placed. Hospice consult was placed for further management of patient on discharge. Both patient and family chose Home hospice and the patient is to be discharged home. Complications: None Allergies: Coded Allergies: Penicillins (RASH 06/24/16) Significant Procedures: None Pertinent Lab Results: Vital Signs Date Time Temp Pulse Resp B/P B/P Pulse O2 O2 Flow FiO2 Mean Ox Delivery Rate 06/26 0910 94 Nasal 5.0L Cannula 06/26 0910 94 06/26 0820 94 BIPAP 35% 06/26 0819 94 06/26 0800 93 Nasal 4.0L Cannula 06/26 0612 98.9 107 20 122/78 92 Nasal 5.0L Cannula 06/26 0140 108 98 06/26 0000 98 Nasal 4.0L Cannula 06/25 2205 97.6 102 17 114/78 97 Nasal 5.0L Cannula 06/25 2054 Nasal 3.0L Cannula 06/25 1717 95 Nasal 3.0L Cannula 06/25 1600 Nasal 5.0L Cannula 06/25 1521 97.9 94 22 112/76 92 Nasal 4.0L Cannula 06/25 1205 110 98 06/25 0830 95 Nasal 5.0L Cannula 06/25 0823 114 93 06/25 0800 96 BIPAP 40% 06/25 0658 96.7 102 22 112/78 92 Nasal 4.0L Cannula 06/25 0503 115 92 06/25 0502 87 Nasal 4.0L Cannula 06/25 0420 114 93 06/25 0310 94 96 06/25 0006 77 95 06/25 0000 94 BIPAP 06/24 2305 97.5 93 24 115/78 94 BIPAP 06/24 2230 BIPAP 35% 06/24 2114 97.7 96 24 120/78 96 BIPAP 06/24 2012 99 93 06/24 1939 97.6 97 24 102/67 93 BIPAP 06/24 1845 99 98 06/24 1844 97 BIPAP 35% 06/24 1842 Nasal 6.0L Cannula 06/24 1828 97.7 06/24 1811 94 40 135/76 97 Nasal 5.0L Cannula Laboratory Tests 06/26/16 0715: Anion Gap 5, Estimated GFR > 60, BUN/Creatinine Ratio 25.0 Microbiology Date/Time Procedure - Status Source Growth 06/24 2032 Respiratory Culture - CAN LOWER RESP Cancelled: NO SMAPLES COLLECTED 06/24 2032 Gram Stain - CAN LOWER RESP Cancelled: NO SMAPLES COLLECTED 06/24 2028 Legionella Antigen - COMP URINE ROUT 06/24 2028 Streptococcus pneumoniae Antigen (M - COMP URINE ROUT 06/24 1811 Blood Culture - RES BLOOD Orders Procedure Date/time Status Change service to 06/26 0720 Active BASIC ELECTROLYTES PLUS BUN&CR 06/26 0600 Complete XRY-CHEST XRAY, PA AND LATERAL 06/26 UNK Active House Staff 06/26 UNK Active Lab Add-on Test 06/26 UNK Active Regular Diet 06/25 B Active ARTERIAL BLOOD GAS (GEN) 06/25 0600 Complete CBC WITHOUT DIFFERENTIAL 06/25 0600 Complete BASIC ELECTROLYTES PLUS BUN&CR 06/25 0600 Complete AEROSOL CHG 06/25 UNK Complete OXYGEN 06/25 UNK Complete OXYGEN DAILY CHARGE 06/25 UNK Complete CONTIN. POS. AIRWAY PRESS. CHG 06/25 UNK Complete OXYGEN SETUP (GEN) 06/25 UNK Complete PHARMACY COMMUNICATION FORM 06/25 UNK Active MISSING MEDICATION FORM 06/25 UNK Active Vital Signs 06/24 2343 Active Teach/Educate 06/24 2343 Active Pain Treatment and Response 06/24 2343 Active Nutritional Intake, Monitor 06/24 2343 Active Isolation 06/24 2343 Active Intake & Output 06/24 2343 Active Patient Care Conference 06/24 2343 Active Activity/Ambulation 06/24 2343 Active RT: Evaluation 06/25 2227 Active Code Status 06/25 2115 Active Saline Lock 06/25 2035 Active Activity/Ambulation 06/25 2035 Active Code Status 06/25 2035 Complete Pathway - chart 06/24 2032 Active Patient Data 06/24 2030 Active Transfer patient to 06/24 2028 Active STREP PNEUMO URINARY ANTIGEN 06/24 2028 Complete LEGIONELLA URINARY ANTIGEN 06/24 2028 Complete URINE DRUGS OF ABUSE 06/24 2028 Complete URINALYSIS 06/24 2028 Complete ARTERIAL BLOOD GAS (GEN) 06/24 2025 Complete Patient Data 06/24 1927 Active Admit to inpatient 06/24 1900 Active BIPAP 06/24 1800 Complete ARTERIAL BLOOD GAS (GEN) 06/24 1755 Complete BLOOD CULTURE 06/24 1755 Active TROPONIN LEVEL 06/24 1755 Complete LACTIC ACID 06/24 1755 Complete COMPREHENSIVE METABOLIC PANEL 06/24 1755 Complete CBC WITHOUT DIFFERENTIAL 06/24 1755 Complete EKG 06/24 1746 Active OXYGEN SETUP CHG 06/24 UNK Complete OXYGEN 06/24 UNK Complete OXYGEN TRANSPORT 06/24 UNK Complete TRC EVALUATION (GEN) 06/24 UNK Complete THERAPIST ORDERS 06/24 UNK Complete VTE Mechanical Prophylaxis 06/24 UNK Active Vital Signs 06/24 UNK Active Intake & Output 06/24 UNK Active Disposition Summary Disposition Principal Diagnosis: Community Acquired PNA Exacerbation of COPD Additional Diagnosis: Presumed lung Cancer, not on any treatment Anxiety Depression Discharge Disposition: home health services Discharge Instructions General Discharge Information Code Status: Do Not Resucitate/Intubat Patient's Diet: Regular Patient's Activity: As tolerated Follow-Up Instructions/Appts: Please make an appointment to follow up with: 1) Your PCP within one week from discharge 2) Your promotion specialist within one week from discharge. Medications at Discharge Discharge Medications: Stop taking the following medications: Prednisone (Prednisone) 10 MG TABLET ORAL As Directed Qty = 63 Continue taking these medications: Albuterol Sulfate (Ventolin Hfa) 18 GM HFA.AER.AD 2 Puff Inhale through mouth Q4H as needed for COPD Qty = 18 Comments: NOT GIVEN IN HOSPITAL Mirtazapine (Mirtazapine) 45 MG TABLET 1 Tablet ORAL TAKE AT BEDTIME Qty = 30 Comments: Last Taken: 06/28/16 Time: 2200PM Tiotropium [place] (Spiriva) 18 MCG CAP.W.DEV 1 Capsule Inhale through mouth DAILY Qty = 30 Comments: NOT GIVEN IN HOSPITAL Trazodone HCl (Trazodone HCl) 100 MG TABLET 1 Tablet ORAL TAKE AT BEDTIME Qty = 30 Comments: Last Taken: 06/28/16 Time: 2200PM Budesonide/Formoterol Fumarate (Symbicort 160-4.5 Mcg Inhaler) 10.2 GM HFA.AER.AD 2 Puff Inhale through mouth TWICE DAILY Qty = 10 Comments: Last Taken: 06/29/16 Time: 0915AM Oxycodone HCl (Oxycodone HCl) 5 MG TABLET 1-2 Tablet ORAL Every 4 hours as needed for PAIN Days = 14 Comments: Last Taken: 06/29/16 Time: 1100AM Lorazepam (Lorazepam Intensol) 2 MG/ML ORAL.CONC 0.5-1.0 Milligram SUBLINGUAL Every 4 hours as needed for ANXIETY Days = 14 Comments: ATIVAN 0.5MG IV GIVEN 06/29/16 @1305PM Duloxetine HCl (Duloxetine HCl) 20 MG CAPSULE.DR 2 Tablet ORAL TWICE DAILY Comments: Last Taken: 06/29/16 Time: 0915AM Oxycodone HCl (Oxycontin) 30 MG TAB.ER.12H 1 Tablet ORAL TWICE DAILY Comments: Last Taken: 06/29/16 Time: 0915AM Start taking the following new medications: Prednisone (Prednisone) 10 MG TABLET 0 ORAL SEE INSTRUCTIONS Days = 60 No Refills Instructions: 06/30: TAKE 4 TABS 07/01-07/03: TAKE 3 TABS 07/04-07/06: TAKE 2 TABS FROM 07/07: CONTINUE TAKING 1 TAB DAILY Comments: Last Taken: 06/29/16 Time: 0915AM Copies To: LEANNA GOLDEN,DINORA Attending Review Statement Documenting Attending: MARINA SUAREZ MD
--- NOTE | 2016-06-26 16:15 | NUR ---
NURSING NOTE: PT LEFT FLOOR VIA STRETCHER WITH DISTRIBUTION FOR CXR PER MD ORDER. PT AWAKE, A/OX3 5L NC TICKET TO RIDE COMPLETE, CHART SENT WITH PT, AWAIT RETURN TO FLOOR
--- NOTE | 2016-06-26 16:32 | Patient Discharge Instructions ---
Discharge Instructions General Discharge Information You were seen/treated for: Hypercarbic Respiratory Failure 2/2 Community Acquired PNA and COPD exacerbation Special Instructions: Please see see the doctors in the referral section. You are being discharged to hospice at home with the possibility of being admitted to [facility] for deterioration of current condition. Diet Recommended Diet: Regular Activity Activity Self Limited: Yes Acute Coronary Syndrome Inclusion Criteria At DC or during hospital stay patient has or had the following: ACS DIAGNOSIS No Discharge Core Measures Meds if any: Prescribed or Continued at Discharge Meds if any: NOT Prescribed or Continued at Discharge Congestive Heart Failure Inclusion Criteria At DC or during hospital stay patient has or had the following: CHF DIAGNOSIS No Discharge Core Measures Meds if any: Prescribed or Continued at Discharge Meds if any: NOT Prescribed or Continued at Discharge Cerebrovascular accident Inclusion Criteria At DC or during hospital stay patient has or had the following: CVA/TIA Diagnosis No Discharge Core Measures Meds if any: Prescribed or Continued at Discharge Meds if any: NOT Prescribed or Continued at Discharge Venous thromboembolism Inclusion Criteria VTE Diagnosis No VTE Type NONE VTE Confirmed by (Test) NONE Discharge Core Measures - Per Current guidelines, there needs to be overlap - treatment for the first 5 days of Warfarin therapy. - If discharged on Warfarin prior to 5 days of - overlap therapy, the patient will need to be - assessed for post discharge needs including - *Post discharge parental anticoagulation - *Warfarin and/or parental anticoagulation education - *Follow up date to check INR post discharge At least 5 days overlap therapy as Inpatient No Meds if any: Prescribed or Continued at Discharge Note: Overlap Therapy is Warfarin and Anticoagulant Meds if any: NOT Prescribed or Continued at Discharge
--- NOTE | 2016-06-26 16:49 | NUR ---
NURSING NOTE: PT BACK TO FLOOR VIA STRETCHER WITH DISTIRBTION FROM CXR PT AWAKE, A/OX3, 5L NC DENIES DISTRESS, SETTLED INTO BED, REFSING BED ALARM, EDUCATED TO CALL FOR ASSIST, VERB UNDERSTANDING, FAMILY AT BEDSIDE
--- NOTE | 2016-06-26 17:06 | RADIOLOGY REPORT ---
EXAMINATION: XR CHEST CLINICAL INFORMATION: Evaluate for pneumonia. Previous chest x-ray was not confirmatory. COMPARISON: Several prior chest x-rays, most recent of which is dated 06/24/2016. TECHNIQUE: 2 views of the chest were obtained. FINDINGS: The cardiomediastinal silhouette is within normal limits in size. Lungs bilaterally are hyperinflated with thickening of the central airways and coarsening of bronchovascular lung markings. There is large bullous change again noted in the right lung apex, and findings are consistent with emphysema. Associated linear scarring is seen in the right lung apex. There are persistent patchy parenchymal opacities seen in the lingula, unchanged from prior exam. No effusion or pneumothorax is seen. Osteopenia is noted. IMPRESSION: Pulmonary emphysema with patchy parenchymal opacities in the lingula, unchanged. Findings may be related to ongoing atelectasis or subtle pneumonia.
[2016-06-26 23:31] VITALS: BP 128/68
--- NOTE | 2016-06-27 00:30 | Event Note ---
Event Note Event Note: S: Notified by Rich the nurse at 10:22 PM taking care of the patient that she is extremely anxious. B: Visited the patient at bedside. She states that she was extremely anxious given the cumulative events that are going on. She requested some anxiolytics to be given. Her son Carmelo was at bed side. A/R: After brief physical exam and noting vitals to be stable, a one-time dose of Ativan (1MG) was given. She was also driking a red bull and was asked to consider perhaps drinking this in the AM. 1150 pm: Patient currently asleep. Son still awake. No additional issues reported. Resident made aware.
[2016-06-27 06:31] VITALS: BP 110/70
--- NOTE | 2016-06-27 08:08 | PN- Housestaff ---
JIMI GOLDEN,NELY 06/27/16 0805: Subjective Follow-up For: Acute on chronic hypercarbic respiratory failure. Subjective: Patient is lying in bed, looks to be in moderate distress, on 5.0L of oxygen. Son is also present in the room. Decisions regarding hospice care are still being made and the family wants to consider home hospice vs inpatient hospice. Review of Systems Constitutional: Reports: see HPI. Objective Last 24 Hrs of Vital Signs/I&O Vital Signs Date Time Temp Pulse Resp B/P B/P Pulse O2 O2 Flow FiO2 Mean Ox Delivery Rate 06/27 0631 98.6 101 20 110/70 92 Nasal 5.0L Cannula 06/27 0000 Nasal 4.0L Cannula 06/26 2331 98.2 106 22 128/68 98 Nasal 5.0L Cannula 06/26 1759 22 96 Nasal 4.0L Cannula 06/26 1759 22 99 Nasal 5.0L Cannula 06/26 1750 99 Nasal 5.0L Cannula 06/26 1600 94 Nasal 5.0L Cannula 06/26 1354 98.3 105 20 115/71 96 Nasal 5.0L Cannula 06/26 0910 94 Nasal 5.0L Cannula 06/26 0910 94 06/26 0820 94 BIPAP 35% 06/26 0819 94 Intake & Output 06/27 1600 06/27 0800 06/27 0000 Intake Total 240 1140 Output Total 700 Balance 240 440 Intake, IV 210 Intake, Oral 240 930 Number 0 Bowel Movements Output, Urine 700 Physical Exam General Appearance: Alert, Oriented X3, Cooperative, Moderate Distress Cardiovascular: Regular Rate, Normal S1, Normal S2, No Murmurs Lungs: diminished air entry present bilaterally Abdomen: Normal Bowel Sounds, Soft, No Tenderness Neurological: Normal Speech, Strength at 5/5 X4 Ext, Normal Tone, Sensation Intact Extremities: No Edema Current Medications: Current Medications Sig/Osmar Start time Last Medication Dose Route Stop Time Status Admin Albuterol Sulfate 3 ML EVERY 4 HRS/AWAKE 06/25 0800 AC 06/26 INH 2120 Azithromycin 500 MG Q24H 06/25 1900 AC 06/26 Sodium Chloride 250 ML IV 2019 Budesonide/ 2 PUF BID 06/25 0354 AC 06/26 Formoterol Fumarate INH 2224 Ceftriaxone Sodium 1,000 MG DAILY 06/27 1000 AC IV Ceftriaxone Sodium 1,000 MG ONCE ONE 06/26 1000 DC 06/26 IV 06/26 1001 1141 Duloxetine HCl 40 MG BID 06/25 1000 AC 06/26 PO 2224 Enoxaparin Sodium 40 MG DAILY 06/25 1000 AC SC Lorazepam 1 MG ONCE ONE 06/26 2245 DC 06/26 IV 06/26 2246 2247 Lorazepam 0.5 MG Q6P PRN 06/26 1000 AC 06/26 IV 2020 Lorazepam 0.5 MG Q4 PRN 06/25 1000 DC 06/26 PO 07/02 0429 0953 Methylprednisolone 40 MG Q12 06/25 1000 AC 06/26 IV 2224 Mirtazapine 45 MG QPM 06/25 2200 AC 06/26 PO 2223 Oxycodone HCl 30 MG Q12 06/25 1000 AC 06/26 PO 2223 Oxycodone HCl 5 MG Q4 PRN 06/25 0445 AC PO Oxycodone HCl 10 MG Q4 PRN 06/25 0445 AC 06/26 PO 1832 Patient Medication 1 UNIT 1000 06/27 1000 Teaching ED 06/27 1001 Patient Medication 1 ED .STK-MED ONE 06/[address] [facility] ED 06/26 1250 Patient Medication 1 UNIT ONE NR 06/[address] [facility] ED 06/26 1615 Sodium Chloride 1,000 ML Q13H 06/25 0415 DC 06/26 IV 0546 Trazodone HCl 100 MG AT BEDTIME 06/25 0230 AC 06/26 PO 2224 Lines/Diet/Fluids Lines: peripheral lines Assessment/Plan Assessment: This is a 50 yo F with h/o chronic hypoxic respiratory failure, 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 She was initially admitted to the ICU and started on antibiotics, but later transferred to the floor. She is being treated for CAP with Ceftriaxone and Azithro, Solumedrol 40 Q12. Overnight, the patient was found to have an episode of severe anxiety. She was given 1 mg of Ativan for the same and asked to stop drinking energy drinks (she was found to be consuming one, at the time of the anxiety attack). Patient will be evaluated by hospice today. The family is still considering options, ie. [facility] vs Home hospice. We will continue current management till a decision has been made. Problem List: 1. Community acquired pneumonia Pain Ratin Pain Location: None Pain Goal: Pain 4 or less Pain Plan: Per EMR Tomorrow's Labs & Rationales: Not needed as the patient may become hospice today. DVT/Prophylaxis: pharmacological Consulting Request: Consulting Specialty: Pulmonary Disease Consulting Physician: Dr. Ray SUAREZ MD,[facility] 06/27/16 1249: Attending MD Review Statement Attending Statement Attending MD Statement: examined this patient, discuss w/resident/PA/EXTRUDING DEPARTMENT SUPERVISOR, agreed w/resident/PA/EXTRUDING DEPARTMENT SUPERVISOR, reviewed EMR data (avail) Attending Assessment/Plan: Agree with resident assessment and plan. Will continue inpatient treatment with Prednisone and nebulizer treatments. Anticipated discharge tomorrow. After conversation with hospice nurse and Dr. Bell, patient will be discharged home with home hospice.
--- NOTE | 2016-06-27 09:29 | PN- Pulmonary ---
Subjective HPI/Critical Care Issues: Patient seen and examined this morning. Her shortness of breath slightly improved. She is continuing to contemplate about whether she will go home or possibly hospice inpatient such as [facility]. She has no chest pain or nausea or vomiting no diarrhea no constipation. Her pain is adequately controlled this time this morning. Objective Current Medications: Current Medications Sig/Osmar Start time Last Medication Dose Route Stop Time Status Admin Albuterol Sulfate 3 ML EVERY 4 HRS/AWAKE 06/25 0800 AC 06/26 INH 2120 Azithromycin 500 MG Q24H 06/25 1900 AC 06/26 Sodium Chloride 250 ML IV 2019 Budesonide/ 2 PUF BID 06/25 0354 AC 06/26 Formoterol Fumarate INH 2224 Ceftriaxone Sodium 1,000 MG DAILY 06/27 1000 AC IV Ceftriaxone Sodium 1,000 MG ONCE ONE 06/26 1000 DC 06/26 IV 06/26 1001 1141 Duloxetine HCl 40 MG BID 06/25 1000 AC 06/26 PO 2224 Enoxaparin Sodium 40 MG DAILY 06/25 1000 AC SC Lorazepam 1 MG ONCE ONE 06/26 2245 DC 06/26 IV 06/26 2246 2247 Lorazepam 0.5 MG Q6P PRN 06/26 1000 AC 06/26 IV 2020 Lorazepam 0.5 MG Q4 PRN 06/25 1000 DC 06/26 PO 07/02 0429 0953 Methylprednisolone 40 MG Q12 06/25 1000 AC 06/26 IV 2224 Mirtazapine 45 MG QPM 06/25 2200 AC 06/26 PO 2223 Oxycodone HCl 30 MG Q12 06/25 1000 AC 06/26 PO 2223 Oxycodone HCl 5 MG Q4 PRN 06/25 0445 AC PO Oxycodone HCl 10 MG Q4 PRN 06/25 0445 AC 06/26 PO 1832 Patient Medication 1 UNIT 1000 06/27 1000 Teaching ED 06/27 1001 Patient Medication 1 ED .STK-MED ONE 06/26 1249 [place] Teaching ED 06/26 1250 Patient Medication 1 UNIT ONE NR 06/26 1015 [place] Teaching ED 06/26 1615 Sodium Chloride 1,000 ML Q13H 06/25 0415 DC 06/26 IV 0546 Trazodone HCl 100 MG AT BEDTIME 06/25 0230 AC 06/26 PO 2224 Vital Signs & I&O Last 24 Hrs of Vitals and I&O: Vital Signs Date Time Temp Pulse Resp B/P B/P Pulse O2 O2 Flow FiO2 Mean Ox Delivery Rate 06/27 0631 98.6 101 20 110/70 92 Nasal 5.0L Cannula 06/27 0000 Nasal 4.0L Cannula 06/26 2331 98.2 106 22 128/68 98 Nasal 5.0L Cannula 06/26 1759 22 96 Nasal 4.0L Cannula 06/26 1759 22 99 Nasal 5.0L Cannula 06/26 1750 99 Nasal 5.0L Cannula 06/26 1600 94 Nasal 5.0L Cannula 06/26 1354 98.3 105 20 115/71 96 Nasal 5.0L Cannula Intake & Output 06/27 1600 06/27 0800 06/27 0000 Intake Total 240 1140 Output Total 700 Balance 240 440 Intake, IV 210 Intake, Oral 240 930 Number 0 Bowel Movements Output, Urine 700 Exam Other Physical Findings: gen awake and alert heent poor dentition cvs s1, s2 lungs rhonchi, diminished bs, bilateral wheezing abd soft bs+ ext without edema, lipoma seems to be dimnished Impression/Plan Impression/Plan Impression/Plan: Impression 50 year old woman * end stage o2 dependent COPD with an exacerbation secondary to atelectasis and likely underlying community acquired pneumonia * presumed lung cancer without a definitive diagnosis based on patient wishes * anxiety and chronic pain/back pain Plan - anxiolysis - pain control - cont abx for CAP - DC solumedrol, begin prednisone 40mg - bipap as needed - f/u hospice - trc/nebs DVT prophylaxis at all times Patient is considering home vs inpatient hospice.
[2016-06-27] MEDS ORDERED: PREDNISONE10 M2 PO (14:12)
[2016-06-27 15:41] VITALS: BP 130/80
[2016-06-27 21:58] VITALS: BP 124/74
[2016-06-28 06:54] VITALS: BP 116/70
--- NOTE | 2016-06-28 07:28 | PN- Housestaff ---
JIMI GOLDEN,NELY 06/28/16 0727: Subjective Follow-up For: Acute on chronic hypercarbic respiratory failure. Subjective: Patient is feeling a little better than yesterday, but she still wishest to go home tomorrow. Review of Systems Constitutional: Reports: see HPI. Objective Last 24 Hrs of Vital Signs/I&O Vital Signs Date Time Temp Pulse Resp B/P B/P Pulse O2 O2 Flow FiO2 Mean Ox Delivery Rate 06/28 0654 98.4 89 18 116/70 96 Nasal 5.0L Cannula 06/28 0000 93 Nasal 4.0L Cannula 06/27 2158 98.1 96 21 124/74 93 Nasal 5.0L Cannula 06/27 2000 Nasal 4.0L Cannula 06/27 1636 93 Nasal 4.0L Cannula 06/27 1600 Nasal 4.0L Cannula 06/27 1541 97.9 94 20 130/80 96 Nasal 5.0L Cannula 06/27 0949 94 Nasal 4.0L Cannula 06/27 0800 Nasal 4.0L Cannula Intake & Output 06/28 0800 06/28 0000 06/27 1600 Intake Total 240 600 Output Total 425 Balance 240 175 Intake, IV 0 Intake, Oral 240 600 Number 0 Bowel Movements Output, Urine 425 Physical Exam General Appearance: Alert, Oriented X3, Cooperative, Moderate Distress Cardiovascular: Regular Rate, Normal S1, Normal S2 Lungs: decreased air movement noted bilaterally. Abdomen: Normal Bowel Sounds, Soft, No Tenderness Neurological: Normal Speech, Strength at 5/5 X4 Ext, Normal Tone, Sensation Intact Extremities: No Edema Current Medications: Current Medications Sig/Osmar Start time Last Medication Dose Route Stop Time Status Admin Albuterol Sulfate 3 ML EVERY 4 HRS/AWAKE 06/25 0800 AC 06/27 INH 2012 Azithromycin 500 MG Q24H 06/25 1900 AC 06/27 Sodium Chloride 250 ML IV 1930 Budesonide/ 2 PUF BID 06/25 0354 AC 06/27 Formoterol Fumarate INH 214 Ceftriaxone Sodium 1,000 MG DAILY 06/27 1000 AC 06/27 IV 1016 Duloxetine HCl 40 MG BID 06/25 1000 AC 06/27 PO 2143 Enoxaparin Sodium 40 MG DAILY 06/25 1000 AC SC Lorazepam 1 MG ONCE ONE 06/27 1300 DC 06/27 IV 06/27 1301 1304 Lorazepam 0.5 MG Q6P PRN 06/26 1000 AC 06/27 IV 2055 Methylprednisolone 40 MG Q12 06/25 1000 DC 06/27 IV 1016 Mirtazapine 45 MG QPM 06/25 2200 AC 06/27 PO 2143 Oxycodone HCl 30 MG Q12 06/25 1000 AC 06/27 PO 2058 Oxycodone HCl 5 MG Q4 PRN 06/25 0445 AC PO Oxycodone HCl 10 MG Q4 PRN 06/25 0445 AC 06/27 PO 1930 Patient Medication 1 UNIT 1000 06/27 1000 DC Teaching ED 06/27 1001 Prednisone 40 MG DAILY 06/28 1000 AC PO Trazodone HCl 100 MG AT BEDTIME 06/25 0230 AC 06/27 PO 2143 Lines/Diet/Fluids Lines: peripheral lines Assessment/Plan Assessment: This is a 50 yo F with h/o chronic hypoxic respiratory failure, 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 She was initially admitted to the ICU and started on antibiotics, but later transferred to the floor. She is being treated for CAP with Ceftriaxone and Azithro, Solumedrol 40 Q12. Patient is to be continued on Ceftriaxone and Azithromycin. Continue Prednisone 40 mg Daily and to be sent home on a taper. Both the family and the patient have come to a decision and would like home hospice. Patient will be discharged home tomorrow on home hospice and a prednisone taper. DVT PPx: Pharmacological. Code Status: DNR/DNI. Problem List: 1. Hypercapnic respiratory failure Pain Ratin Pain Location: All over Pain Goal: Pain 4 or less Pain Plan: Per EMR Tomorrow's Labs & Rationales: None needed as the patient is about to become home hospice today. DVT/Prophylaxis: pharmacological Consulting Request: Consulting Specialty: Pulmonary Disease Consulting Physician: Dr. Ray SUAREZ MD,[facility] 06/28/16 1734: Attending MD Review Statement Attending Statement Attending MD Statement: examined this patient, discuss w/resident/PA/COMPUTER GAME PROGRAMMER, agreed w/resident/PA/COMPUTER GAME PROGRAMMER, reviewed EMR data (avail)
--- NOTE | 2016-06-28 09:01 | PN- Pulmonary ---
Subjective HPI/Critical Care Issues: pt seen and examined afebrile 90% on 4LNC hemodynamically stable no blood work to review since 06/26 Objective Current Medications: Current Medications Sig/Osmar Start time Last Medication Dose Route Stop Time Status Admin Albuterol Sulfate 3 ML EVERY 4 HRS/AWAKE 06/25 0800 AC 06/28 INH 0850 Azithromycin 500 MG Q24H 06/25 1900 AC 06/27 Sodium Chloride 250 ML IV 1930 Budesonide/ 2 PUF BID 06/25 0354 AC 06/27 Formoterol Fumarate INH 2143 Ceftriaxone Sodium 1,000 MG DAILY 06/27 1000 AC 06/27 IV 1016 Duloxetine HCl 40 MG BID 06/25 1000 AC 06/27 PO 2143 Enoxaparin Sodium 40 MG DAILY 06/25 1000 AC SC Lorazepam 1 MG ONCE ONE 06/27 1300 DC 06/27 IV 06/27 1301 1304 Lorazepam 0.5 MG Q6P PRN 06/26 1000 AC 06/27 IV 2055 Methylprednisolone 40 MG Q12 06/25 1000 DC 06/27 IV 1016 Mirtazapine 45 MG QPM 06/25 2200 AC 06/27 PO 2143 Oxycodone HCl 30 MG Q12 06/25 1000 AC 06/27 PO 2058 Oxycodone HCl 5 MG Q4 PRN 06/25 0445 AC PO Oxycodone HCl 10 MG Q4 PRN 06/25 0445 AC 06/28 PO 0809 Patient Medication 1 UNIT 1000 06/27 1000 TN Teaching ED 06/27 1001 Prednisone 40 MG DAILY 06/28 1000 AC PO Trazodone HCl 100 MG AT BEDTIME 06/25 0230 AC 06/27 PO 2143 Vital Signs & I&O Last 24 Hrs of Vitals and I&O: Vital Signs Date Time Temp Pulse Resp B/P B/P Pulse O2 O2 Flow FiO2 Mean Ox Delivery Rate 06/28 0852 90 Nasal 4.0L Cannula 06/28 0654 98.4 89 18 116/70 96 Nasal 5.0L Cannula 06/28 0000 93 Nasal 4.0L Cannula 06/27 2158 98.1 96 21 124/74 93 Nasal 5.0L Cannula 06/27 2000 Nasal 4.0L Cannula 06/27 1636 93 Nasal 4.0L Cannula 06/27 1600 Nasal 4.0L Cannula 06/27 1541 97.9 94 20 130/80 96 Nasal 5.0L Cannula 06/27 0949 94 Nasal 4.0L Cannula Intake & Output 06/28 1600 06/28 0800 06/28 0000 Intake Total 240 Output Total 700 Balance -700 240 Intake, Oral 240 Output, Urine 700 Exam Other Physical Findings: gen awake and alert heent poor dentition cvs s1, s2 lungs rhonchi, diminished bs, bilateral wheezing abd soft bs+ ext without edema, lipoma seems to be dimnished Impression/Plan Impression/Plan Impression/Plan: Impression 50 year old woman * end stage o2 dependent COPD with an exacerbation secondary to atelectasis and likely underlying community acquired pneumonia * presumed lung cancer without a definitive diagnosis based on patient wishes * anxiety and chronic pain/back pain Plan - anxiolysis - pain control - cont abx for CAP - continue prednisone with a taper 40mg x 3 days, 30mg x 3 days, 20mg x 3 days, then keep on 10mg of prednisone for now - bipap as needed - f/u hospice - trc/nebs DVT prophylaxis at all times Patient is considering home vs inpatient hospice.
--- NOTE | 2016-06-28 13:36 | NUR ---
NURSING NOTE: PT C/O ANXIETY AFTER GETTING UP TO [facility], SOB WITH EXCERTION, PT DENIES SOB AT THIS TIME. DR SUAREZ CALLED AND OK TO GIVE ATIVAN AT THIS TIME, HE IS GOING TO CHANGE IT TO Q4 PRN, AWAITING ORDER CHANGE, CONT TO MONITOR.
[2016-06-28 14:18] VITALS: BP 120/72
[2016-06-28 22:10] VITALS: BP 126/58
--- NOTE | 2016-06-29 06:28 | NUR ---
NURSING NOTE: PATIENT SLEPT ALL NIGHT LONG. UPON THE MORNING DURING VITALS AND ROUNDS PATIENT ENCOURAGED TO GET UP AND PEE, PATIENT STATED SHE DID NOT NEED TO AT THIS TIME. WILL CONTINUE TO MONITOR.
[2016-06-29 07:28] VITALS: BP 110/72
--- NOTE | 2016-06-29 07:52 | PN- Housestaff ---
JIMI GOLDEN,NELY 06/29/16 0748: Subjective Follow-up For: Hypercarbic Respiratory Failure in the setting of End Stage COPD and presumed lung cancer Subjective: Patients states that she feels a little better than yesterday. She is aware of discharge today for home hospice and further management at [facility] if she deteriorates. Review of Systems Constitutional: Reports: see HPI. Objective Last 24 Hrs of Vital Signs/I&O Vital Signs Date Time Temp Pulse Resp B/P B/P Pulse O2 O2 Flow FiO2 Mean Ox Delivery Rate 06/29 0728 98.7 94 20 110/72 98 Nasal 4.0L Cannula 06/28 2210 97.9 116 22 126/58 92 Nasal 4.0L Cannula 06/28 1845 90 Nasal 4.0L Cannula 06/28 1600 96 Nasal 4.0L Cannula 06/28 1418 98.3 95 20 120/72 96 Nasal 4.0L Cannula 06/28 0852 90 Nasal 4.0L Cannula 06/28 0800 96 Nasal 4.0L Cannula Intake & Output 06/29 0800 06/29 0000 06/28 1600 Intake Total 827 178 9588 Output Total 600 900 Balance 100 -100 100 Intake, IV 100 Intake, Oral 100 500 900 Number 0 Bowel Movements Output, Urine 600 900 Physical Exam General Appearance: Alert, Oriented X3, Cooperative Cardiovascular: Regular Rate, Normal S1, Normal S2 Lungs: Bilaterally decreased breath sounds Abdomen: Normal Bowel Sounds, Soft, No Tenderness Neurological: Normal Speech, Strength at 5/5 X4 Ext, Normal Tone, Sensation Intact Extremities: No Edema Current Medications: Current Medications Sig/Osmar Start time Last Medication Dose Route Stop Time Status Admin Albuterol Sulfate 3 ML EVERY 4 HRS/AWAKE 06/25 0800 AC 06/28 INH 1845 Azithromycin 500 MG Q24H 06/25 1900 AC 06/28 Sodium Chloride 250 ML IV 1925 Budesonide/ 2 PUF BID 06/25 0354 AC 06/28 Formoterol Fumarate INH 2100 Ceftriaxone Sodium 1,000 MG DAILY 06/27 1000 AC 06/28 IV 0921 Duloxetine HCl 40 MG BID 06/25 1000 AC 06/28 PO 2031 Enoxaparin Sodium 40 MG DAILY 06/25 1000 AC SC Lorazepam 0.5 MG Q4 HRS NEEDED PRN 06/28 1630 AC 06/29 IV 0651 Lorazepam 0.5 MG Q6P PRN 06/26 1000 DC 06/28 IV 1335 Mirtazapine 45 MG QPM 06/25 2200 AC 06/28 PO 203 Ondansetron HCl 4 MG Q6P PRN 06/28 2045 AC 06/28 IV 2105 Oxycodone HCl 30 MG Q12 06/25 1000 AC 06/28 PO 2031 Oxycodone HCl 5 MG Q4 PRN 06/25 0445 AC PO Oxycodone HCl 10 MG Q4 PRN 06/25 0445 AC 06/29 PO 0650 Patient Medication 1 ED .STK-MED ONE 06/28 1331 DC Teaching ED 06/28 1332 Prednisone 40 MG DAILY 06/28 1000 AC 06/28 PO 0921 Trazodone HCl 100 MG AT BEDTIME 06/25 0230 AC 06/28 PO 203 Lines/Diet/Fluids Lines: peripheral lines Assessment/Plan Assessment: This is a 50 yo F with h/o chronic hypoxic respiratory failure, 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 She was initially admitted to the ICU and started on antibiotics, but later transferred to the floor. She is being treated for CAP with Ceftriaxone and Azithro, Prednisone 40 mg daily. Patient is being discharged to home hospice today on a Prednisone taper to stop at 10 mg daily. She will be transferred to [facility] if she continues to deteriorate. DVT PPx: Pharmacological. Code Status: DNR/DNI. Problem List: 1. Hypercapnic respiratory failure Pain Ratin Pain Location: None Pain Goal: Pain 4 or less Pain Plan: Per EMR Tomorrow's Labs & Rationales: None as the patient is to be discharged on home hospice today. DVT/Prophylaxis: pharmacological Consulting Request: Consulting Specialty: Pulmonary Disease Consulting Physician: Dr. Ray SUAREZ MD,[facility] 06/29/16 1124: Attending MD Review Statement Attending Statement Attending MD Statement: examined this patient, discuss w/resident/PA/MASONRY SUPERVISOR, agreed w/resident/PA/MASONRY SUPERVISOR, reviewed EMR data (avail) Attending Assessment/Plan: Stable for discharge home with home hospice. Will follow pulmonary recommendations. See CMR for medication details.
--- NOTE | 2016-06-29 09:29 | PN- Pulmonary ---
Subjective HPI/Critical Care Issues: pt seen and examined awaiting discharge planning to home hospice somewhat improved dyspnea remains however on prednisone Objective Current Medications: Current Medications Sig/Osmar Start time Last Medication Dose Route Stop Time Status Admin Albuterol Sulfate 3 ML EVERY 4 HRS/AWAKE 06/25 0800 AC 06/29 INH 0846 Azithromycin 500 MG Q24H 06/25 1900 DC 06/28 Sodium Chloride 250 ML IV 1925 Budesonide/ 2 PUF BID 06/25 0354 AC 06/29 Formoterol Fumarate INH 0915 Ceftriaxone Sodium 1,000 MG DAILY 06/27 1000 DC 06/29 IV 0915 Duloxetine HCl 40 MG BID 06/25 1000 AC 06/29 PO 0915 Enoxaparin Sodium 40 MG DAILY 06/25 1000 AC SC Lorazepam 0.5 MG Q4 HRS NEEDED PRN 06/28 1630 AC 06/29 IV 0651 Lorazepam 0.5 MG Q6P PRN 06/26 1000 DC 06/28 IV 1335 Mirtazapine 45 MG QPM 06/25 2200 AC 06/28 PO 2031 Ondansetron HCl 4 MG Q6P PRN 06/28 2045 AC 06/28 IV 2105 Oxycodone HCl 30 MG Q12 06/25 1000 AC 06/29 PO 0915 Oxycodone HCl 5 MG Q4 PRN 06/25 0445 AC PO Oxycodone HCl 10 MG Q4 PRN 06/25 0445 AC 06/29 PO 0650 Patient Medication 1 ED .STK-MED ONE 06/28 1331 MA Teaching ED 06/28 1332 Prednisone 40 MG DAILY 06/28 1000 AC 06/29 PO 0915 Trazodone HCl 100 MG AT BEDTIME 06/25 0230 06/28 PO 2031 Vital Signs & I&O Last 24 Hrs of Vitals and I&O: Vital Signs Date Time Temp Pulse Resp B/P B/P Pulse O2 O2 Flow FiO2 Mean Ox Delivery Rate 06/29 0852 97 Nasal 4.0L Cannula 06/29 0800 95 Nasal 4.0L Cannula 06/29 0728 98.7 94 20 110/72 98 Nasal 4.0L Cannula 06/28 2210 97.9 116 22 126/58 92 Nasal 4.0L Cannula 06/28 1845 90 Nasal 4.0L Cannula 06/28 1600 96 Nasal 4.0L Cannula 06/28 1418 98.3 95 20 120/72 96 Nasal 4.0L Cannula Intake & Output 06/29 1600 06/29 0800 06/29 0000 Intake Total 100 500 Output Total 600 Balance 100 -100 Intake, Oral 100 500 Output, Urine 600 Exam Other Physical Findings: gen awake and alert heent poor dentition cvs s1, s2 lungs rhonchi, diminished bs, bilateral wheezing abd soft bs+ ext without edema, lipoma seems to be dimnished Impression/Plan Impression/Plan Impression/Plan: Impression 50 year old woman * end stage o2 dependent COPD with an exacerbation secondary to atelectasis and likely underlying community acquired pneumonia * presumed lung cancer without a definitive diagnosis based on patient wishes * anxiety and chronic pain/back pain Plan - anxiolysis - pain control - cont abx for CAP - continue prednisone with a taper 40mg x 3 days, 30mg x 3 days, 20mg x 3 days, then keep on 10mg of prednisone for now - bipap as needed - f/u hospice - trc/nebs DVT prophylaxis at all times Patient to go to home hospice, if she deteriorates she may consider inpatient hospice at [facility]
[2016-06-29] MEDS ORDERED: PREDNISONE10 M2 PO (09:35)
== END 2016-06-29 13:20 | disposition home health service (06) | DRG 190 ==
LOC: ERH 17:44 → 2NB 19:00 → ERHI 19:00 → ENRESERV 20:56 → 2NB 21:58 → ENPENDDIS 06-29 10:44 → 2NB 06-29 13:20
PROVIDERS: Internal Medicine; Physician Assistant; ADMIT Student in an Organized Health Care Education/Training Program
DX: J44.0 Chronic obstructive pulmonary disease with (acute) lower respiratory infection (principal); J18.9 Pneumonia, unspecified organism; J96.21 Acute and chronic respiratory failure with hypoxia; Z99.81 Dependence on supplemental oxygen; C34.90 Malignant neoplasm of unspecified part of unspecified bronchus or lung; J96.22 Acute and chronic respiratory failure with hypercapnia; J98.11 Atelectasis; J44.1 Chronic obstructive pulmonary disease with (acute) exacerbation; Z87.01 Personal history of pneumonia (recurrent); Z87.891 Personal history of nicotine dependence; F41.8 Other specified anxiety disorders; Z66 Do not resuscitate
CPT/HCPCS: 2NSBP; 80307; 81001; 82436; 87040; 87070; 87449; 87450; 93005; 93010; 94799; 96374; 96375; 99291; J0456; J0696; J1650; J2060; J2405; J2920; J2930; J3490; J7040